=== PATIENT | male | born 1955 | race Caucasian/White ===

== ENCOUNTER 2018-09-23 17:32 | Inpatient (IN) | payer MEDICARE ==
[~2018-09-23] VITALS: Ht 172.7 cm; Wt 130.6 kg
--- OUTSIDE RECORDS SUMMARY | 2018-09-23 17:37 | XMS REPORT ---
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 Allergies, Adverse Reactions, Alerts Allergy Name Allergy Type Status Severity Reaction(s) Onset Date Inactive Date Treating Clinician Comments No Known Allergies DA Active U 2018-06-13 00:00:00 No Known Drug Intolerances DA Active U 2009-02-05 00:00:00 Medications This patient has no known medications. Results Test Description Test Time Test Comments Text Results Atomic Results Result Comments ACUTE HEPATITIS PANEL 2018-09-21 11:08:00 AB HEPATITIS A IGM (test code=HAVMAB) Negative Negative AG HEPAT B SURF (test code=HBSAG) Negative Negative HEPATITIS B CORE ANTIBODY,IGM (test code=HBCMAB) Negative Negative AB HEPATITIS C (test code=HCVAB) >11.0 0.0-0.9 INFCE Result Units: s/co ratio Negative: < 0.8 Indeterminate: 0.8 - 0.9 Positive: > 0.9 The CDC recommends that a positive HCV antibody result be followed up with a HCV Nucleic Acid Amplification test ([id number]).Performed At: [facility] [id number] Kyle L MD Ph:[phone] AB ANTI-GLOMERULAR BASMNT [id number] 11:08:00* Test Item Value Reference Range Comments AB ANTI-GLOMERULAR BASMNT MRBN (test code=GLOMAB) QUANT NOT SUFFICIENT units () Quantity was not sufficient for analysis.Notified: Radha Martinez at account.09/14/2018- Oriana Negative 0 - 20 Weak Positive 21 - 30 Moderate to Strong Positive >30Performed At: [address] [id number] Sanjai MD Ph:[phone] NEUTROPHIL CYTOPLASMIC [id number] 11:08:00* Test Item Value Reference Range Comments AB ANTI-NEUTROPHIL CYTOPLASMIC (test code=NEUTCAB) QUANT NOT SUFFICIENT titer () Quantity was not sufficient for analysis.Notified: Radha Martinez at account.09/14/2018-Oriana AB ANTI-NEUTROPHIL CYTO. P (test code=NEUTCAB-P) TEST NOT PERFORMED () Test not performed ATYPICAL ANCA (test code=ANCACOM) TEST NOT PERFORMED () Test not performed AB DNA DOUBLE [id number] 11:08:00* Test Item Value Reference Range Comments AB DNA DOUBLE STRAND (test code=DNADSAB) 1 IU/mL 0-9 Negative <5 Equivocal 5 - 9 Positive >9Performed At: [facility] [id number] Kyle L MD Ph:[phone] [id number] 12:34:00* Test Item Value Reference Range Comments GLUBED (test code=GLUBED) 100 mg/dL 74-106 Performed by certified staple processing machine operator at [facility] [id number] 07:58:00* Test Item Value Reference Range Comments GLUBED (test code=GLUBED) 107 mg/dL 74-106 Performed by certified staple processing machine operator at [facility] BASIC METABOLIC [id number] 06:59:00* Test Item Value Reference Range Comments SODIUM (test code=NA) 145 mmol/L 136-145 POTASSIUM (test code=K) 3.7 mmol/L 3.5-5.1 CHLORIDE (test code=CL) 116.0 mmol/L 98-107 CARBON DIOXIDE (test code=CO2) 23.0 mmol/L 21-32 ANION GAP (test code=GAP) 9.7 10-20 GLUCOSE (test code=GLU) 100 mg/dL 74-106 BLOOD UREA NITROGEN (test code=BUN) 22 mg/dL 7-18 GLOMERULAR FILTRATION RATE (test code=GFR) 51 mL/min >=60 Estimated GFR by using Modified MDRD formula.Chronic kidney disease is defined as either kidney damageor GFR <60 mL/min/1.73 m2 for >3 months. CREATININE (test code=CREAT) 1.40 mg/dL 0.7-1.3 BUN/CREATININE RATIO (test code=BUN/CREA) 15.7 10-20 CALCIUM (test code=CA) 7.9 mg/dL 8.5-10.1 [id number] 06:59:00* Test Item Value Reference Range Comments MAGNESIUM (test code=MAG) 1.8 mg/dL 1.8-2.4 BASIC METABOLIC [id number] 06:49:00* Test Item Value Reference Range Comments SODIUM (test code=NA) 145 mmol/L 136-145 POTASSIUM (test code=K) 3.7 mmol/L 3.5-5.1 CHLORIDE (test code=CL) 116.0 mmol/L 98-107 CARBON DIOXIDE (test code=CO2) mmol/L 21-32 ANION GAP (test code=GAP) 10-20 GLUCOSE (test code=GLU) mg/dL 74-106 BLOOD UREA NITROGEN (test code=BUN) mg/dL 7-18 GLOMERULAR FILTRATION RATE (test code=GFR) mL/min >=60 CREATININE (test code=CREAT) mg/dL 0.7-1.3 BUN/CREATININE RATIO (test code=BUN/CREA) 10-20 CALCIUM (test code=CA) mg/dL 8.5-10.1 [id number] 06:49:00* Test Item Value Reference Range Comments MAGNESIUM (test code=MAG) mg/dL 1.8-2.4 [id number] 21:11:00* Test Item Value Reference Range Comments GLUBED (test code=GLUBED) 135 mg/dL 74-106 Performed by certified staple processing machine operator at [facility] [id number] 17:50:00* Test Item Value Reference Range Comments GLUBED (test code=GLUBED) 130 mg/dL 74-106 Performed by certified staple processing machine operator at [facility] [id number] 12:35:00* Test Item Value Reference Range Comments GLUBED (test code=GLUBED) 103 mg/dL 74-106 Performed by certified staple processing machine operator at [facility] [id number] 11:24:00* Test Item Value Reference Range Comments GLUBED (test code=GLUBED) 107 mg/dL 74-106 Performed by certified staple processing machine operator at [facility] [id number] 11:24:00* Test Item Value Reference Range Comments GLUBED (test code=GLUBED) 117 mg/dL 74-106 Performed by certified staple processing machine operator at [facility] [id number] 11:23:00* Test Item Value Reference Range Comments GLUBED (test code=GLUBED) 137 mg/dL 74-106 Performed by certified staple processing machine operator at [facility] [id number] 11:23:00* Test Item Value Reference Range Comments GLUBED (test code=GLUBED) 99 mg/dL 74-106 Performed by certified staple processing machine operator at [facility] [id number] 11:22:00* Test Item Value Reference Range Comments GLUBED (test code=GLUBED) 97 mg/dL 74-106 [facility] certified staple processing machine operator [facility] [id number] 11:22:00* Test Item Value Reference Range Comments GLUBED (test code=GLUBED) 86 mg/dL 74-106 Per[facility] by certified staple processing machine [facility] AB ANTI-GLOMERULAR BASMNT [id number] 10:12:00* Test Item Value Reference Range Comments AB ANTI-GLOMERULAR BASMNT MRBN (test code=GLOMAB) 6 units 0-20 Negative 0 - 20 Weak Positive 21 - 30 Moderate to Strong Positive >30Performed At: [facility] [id number] Sanjai MD Ph:[phone] performed at: [facility] [address] [place] [address] NEUTROPHIL CYTOPLASMIC [id number] 10:12:00* Test Item Value Reference Range Comments AB ANTI-NEUTROPHIL CYTOPLASMIC (test code=NEUTCAB) <1:20 titer Neg:<1:20 AB ANTI-NEUTROPHIL CYTO. P (test code=NEUTCAB-P) <1:20 titer Neg:<1:20 The presence of positive fluorescence exhibiting P-ANCA orC-ANCA patterns alone is not specific for the diagnosis ofWegener's Granulomatosis (WG) or microscopic polyangiitis.Decisions about treatment should not be based solely onANCA IFA results. The International ANCA Group Consensusrecommends follow up testing of positive sera with both NH-3 and MPO-ANCA enzyme immunoassays. As many as 5% serumsamples are positive only by EIA. Ref. AM J Clin [id number];111:507-513. ATYPICAL ANCA (test code=ANCACOM) <1:20 titer Neg:<1:20 The atypical pANCA pattern has been observed in asignificant percentage of patients with ulcerative colitis,primary sclerosing cholangitis and autoimmune hepatitis.Performed At: [facility] [id number] Sanjai MD Ph:[phone] BASIC METABOLIC [id number] 07:36:00* Test Item Value Reference Range Comments SODIUM (test code=NA) 147 mmol/L 136-145 POTASSIUM (test code=K) 3.5 mmol/L 3.5-5.1 CHLORIDE (test code=CL) 117.0 mmol/L 98-107 CARBON DIOXIDE (test code=CO2) 24.0 mmol/L 21-32 ANION GAP (test code=GAP) 9.5 10-20 GLUCOSE (test code=GLU) 107 mg/dL 74-106 BLOOD UREA NITROGEN (test code=BUN) 24 mg/dL 7-18 GLOMERULAR FILTRATION RATE (test code=GFR) 47 mL/min >=60 Estimated GFR by using Modified MDRD formula.Chronic kidney disease is defined as either kidney damageor GFR <60 mL/min/1.73 m2 for >3 months. CREATININE (test code=CREAT) 1.50 mg/dL 0.7-1.3 BUN/CREATININE RATIO (test code=BUN/CREA) 16.0 10-20 CALCIUM (test code=CA) 7.7 mg/dL 8.5-10.1 [id number] 07:36:00* Test Item Value Reference Range Comments PHOSPHORUS (test code=PHOS) 3.1 mg/dL 2.5-4.9 [id number] 07:36:00* Test Item Value Reference Range Comments MAGNESIUM (test code=MAG) 1.7 mg/dL 1.8-2.4 [id number] 22:23:00* Test Item Value Reference Range Comments GLUBED (test code=GLUBED) 113 mg/dL 74-106 Performed by certified staple processing machine operator at [facility] BASIC METABOLIC [id number] 07:12:00* Test Item Value Reference Range Comments SODIUM (test code=NA) 150 mmol/L 136-145 POTASSIUM (test code=K) 3.6 mmol/L 3.5-5.1 CHLORIDE (test code=CL) 118.0 mmol/L 98-107 CARBON DIOXIDE (test code=CO2) 24.0 mmol/L 21-32 ANION GAP (test code=GAP) 11.6 10-20 GLUCOSE (test code=GLU) 101 mg/dL 74-106 BLOOD UREA NITROGEN (test code=BUN) 27 mg/dL 7-18 GLOMERULAR FILTRATION RATE (test code=GFR) 41 mL/min >=60 Estimated GFR by using Modified MDRD formula.Chronic kidney disease is defined as either kidney damageor GFR <60 mL/min/1.73 m2 for >3 months. CREATININE (test code=CREAT) 1.70 mg/dL 0.7-1.3 BUN/CREATININE RATIO (test code=BUN/CREA) 15.9 10-20 CALCIUM (test code=CA) 7.9 mg/dL 8.5-10.1 BASIC METABOLIC [id number] 07:07:00* Test Item Value Reference Range Comments SODIUM (test code=NA) 150 mmol/L 136-145 POTASSIUM (test code=K) 3.6 mmol/L 3.5-5.1 CHLORIDE (test code=CL) 118.0 mmol/L 98-107 CARBON DIOXIDE (test code=CO2) mmol/L 21-32 ANION GAP (test code=GAP) 10-20 GLUCOSE (test code=GLU) mg/dL 74-106 BLOOD UREA NITROGEN (test code=BUN) mg/dL 7-18 GLOMERULAR FILTRATION RATE (test code=GFR) mL/min >=60 CREATININE (test code=CREAT) mg/dL 0.7-1.3 BUN/CREATININE RATIO (test code=BUN/CREA) 10-20 CALCIUM (test code=CA) mg/dL 8.5-10.1 [id number] 20:50:00* Test Item Value Reference Range Comments GLUBED (test code=GLUBED) 123 mg/dL 74-106 Performed by certified staple processing machine operator at [facility] [id number] 17:02:00* Test Item Value Reference Range Comments GLUBED (test code=GLUBED) 119 mg/dL 74-106 Performed by certified staple processing machine operator at [facility] [id number] 15:55:00* Test Item Value Reference Range Comments GLUBED (test code=GLUBED) 96 mg/dL 74-106 Performed by certified staple processing machine operator at [facility] [id number] 08:48:00* Test Item Value Reference Range Comments GLUBED (test code=GLUBED) 91 mg/dL 74-106 Performed by certified staple processing machine operator at [facility] BASIC METABOLIC [id number] 06:48:00* Test Item Value Reference Range Comments SODIUM (test code=NA) 151 mmol/L 136-145 POTASSIUM (test code=K) 4.0 mmol/L 3.5-5.1 CHLORIDE (test code=CL) 121.0 mmol/L 98-107 CARBON DIOXIDE (test code=CO2) 24.0 mmol/L 21-32 ANION GAP (test code=GAP) 10.0 10-20 GLUCOSE (test code=GLU) 84 mg/dL 74-106 BLOOD UREA NITROGEN (test code=BUN) 28 mg/dL 7-18 GLOMERULAR FILTRATION RATE (test code=GFR) 38 mL/min >=60 Estimated GFR by using Modified MDRD formula.Chronic kidney disease is defined as either kidney damageor GFR <60 mL/min/1.73 m2 for >3 months. CREATININE (test code=CREAT) 1.80 mg/dL 0.7-1.3 BUN/CREATININE RATIO (test code=BUN/CREA) 15.6 10-20 CALCIUM (test code=CA) 7.9 mg/dL 8.5-10.1 [id number] 06:48:00* Test Item Value Reference Range Comments MAGNESIUM (test code=MAG) 1.8 mg/dL 1.8-2.4 [id number] 21:19:00* Test Item Value Reference Range Comments GLUBED (test code=GLUBED) 98 mg/dL 74-106 Performed by certified staple processing machine operator at [facility] [id number] 17:29:00* Test Item Value Reference Range Comments GLUBED (test code=GLUBED) 106 mg/dL 74-106 Performed by certified staple processing machine operator at [facility] AB ANTI-GLOMERULAR BASMNT [id number] 16:09:00* Test Item Value Reference Range Comments AB ANTI-GLOMERULAR BASMNT MRBN (test code=GLOMAB) Units/mL NEUTROPHIL CYTOPLASMIC [id number] 16:09:00* Test Item Value Reference Range Comments AB ANTI-NEUTROPHIL CYTOPLASMIC (test code=NEUTCAB) <1:20 titer Neg:<1:20 AB ANTI-NEUTROPHIL CYTO. P (test code=NEUTCAB-P) <1:20 titer Neg:<1:20 The presence of positive fluorescence exhibiting P-ANCA orC-ANCA patterns alone is not specific for the diagnosis ofWegener's Granulomatosis (WG) or microscopic polyangiitis.Decisions about treatment should not be based solely onANCA IFA results. The International ANCA Group Consensusrecommends follow up testing of positive sera with both NH-3 and MPO-ANCA enzyme immunoassays. As many as 5% serumsamples are positive only by EIA. Ref. AM J Clin [id number];111:507-513. ATYPICAL ANCA (test code=ANCACOM) <1:20 titer Neg:<1:20 The atypical pANCA pattern has been observed in asignificant percentage of patients with ulcerative colitis,primary sclerosing cholangitis and autoimmune hepatitis.Performed At: [facility] [id number] Sanjai MD Ph:[phone] CBC W/MANUAL [id number] 14:26:00* Test Item Value Reference Range Comments WHITE BLOOD CELL (test code=WBC) 7.1 K/mm3 4.5-12.5 RED BLOOD CELL (test code=RBC) 2.60 mill/mm3 4.0-5.8 HEMOGLOBIN (test code=HGB) 7.7 gram/dL 13.0-17.5 HEMATOCRIT (test code=HCT) 25.3 % 42.0-52.0 MEAN CELL VOLUME (test code=MCV) 97.3 fL 80-98 MEAN CELL HGB (test code=MCH) 29.6 picogram 27.0-33.0 MEAN CELL HGB CONCETRATION (test code=MCHC) 30.4 gram/dL 33.0-36.0 RED CELL DISTRIBUTION WIDTH (test code=RDW) 17.5 % 11.6-16.2 RED CELL DISTRIBUTION WIDTH SD (test code=RDW-SD) 61.1 fL 37.0-51.0 PLATELET COUNT (test code=PLT) 88 K/mm3 150-450 MEAN PLATELET VOLUME (test code=MPV) 10.8 fL 6.7-11.0 IMMATURE GRANULOCYTE % (test code=IG%) 0.3 % 0.0-5.0 NUCLEATED RBC % (test code=NRBC%) 0.0 % 0-0 NEUTROPHIL # (test code=NT#) 2.57 K/mm3 1.8-7.7 IMMATURE GRANULOCYTE # (test code=IG#) 0.02 x10 3/uL 0-0.03 LYMPHOCYTE # (test code=LY#) 3.19 K/mm3 1.0-5.0 MONOCYTE # (test code=MO#) 0.70 K/mm3 0-0.8 EOSINOPHIL # (test code=EO#) 0.53 K/mm3 0.0-0.5 BASOPHIL # (test code=BA#) 0.05 K/mm3 0.0-0.2 NUCLEATED RBC # (test code=NRBC#) 0.00 K/mm3 0.0-0.1 MANUAL DIFF REQUIRED (test code=MDIFF) YES STAIN ACCEPTABILITY (test code=STN ACCEPTABLE) STAIN ACCEPTABLE TOTAL CELLS COUNTED (test code=TCC) 100 #CELLS SEGMENTED NEUTROPHILS (test code=SEG) 39 % 39-69 LYMPHOCYTE (test code=LYMPH) 41 % 25-55 MONOCYTE (test code=MON) 14 % 0-10 EOSINOPHIL (test code=EOS) 6 % 0.0-5.0 POIKILOCYTOSIS (test code=POIK) 1+ ELLIPTOCYTES (test code=ELL) 1+ PLATELET ESTIMATE (test code=PLTEST) DECREASED PLATELET MORPHOLOGY (test code=PLTMORPH) NORMAL CBC W/MANUAL [id number] 13:51:00* Test Item Value Reference Range Comments WHITE BLOOD CELL (test code=WBC) 7.1 K/mm3 4.5-12.5 RED BLOOD CELL (test code=RBC) 2.60 mill/mm3 4.0-5.8 HEMOGLOBIN (test code=HGB) 7.7 gram/dL 13.0-17.5 HEMATOCRIT (test code=HCT) 25.3 % 42.0-52.0 MEAN CELL VOLUME (test code=MCV) 97.3 fL 80-98 MEAN CELL HGB (test code=MCH) 29.6 picogram 27.0-33.0 MEAN CELL HGB CONCETRATION (test code=MCHC) 30.4 gram/dL 33.0-36.0 RED CELL DISTRIBUTION WIDTH (test code=RDW) 17.5 % 11.6-16.2 RED CELL DISTRIBUTION WIDTH SD (test code=RDW-SD) 61.1 fL 37.0-51.0 PLATELET COUNT (test code=PLT) 88 K/mm3 150-450 MEAN PLATELET VOLUME (test code=MPV) 10.8 fL 6.7-11.0 IMMATURE GRANULOCYTE % (test code=IG%) 0.3 % 0.0-5.0 NUCLEATED RBC % (test code=NRBC%) 0.0 % 0-0 NEUTROPHIL # (test code=NT#) 2.57 K/mm3 1.8-7.7 IMMATURE GRANULOCYTE # (test code=IG#) 0.02 x10 3/uL 0-0.03 LYMPHOCYTE # (test code=LY#) 3.19 K/mm3 1.0-5.0 MONOCYTE # (test code=MO#) 0.70 K/mm3 0-0.8 EOSINOPHIL # (test code=EO#) 0.53 K/mm3 0.0-0.5 BASOPHIL # (test code=BA#) 0.05 K/mm3 0.0-0.2 NUCLEATED RBC # (test code=NRBC#) 0.00 K/mm3 0.0-0.1 MANUAL DIFF REQUIRED (test code=MDIFF) YES STAIN ACCEPTABILITY (test code=STN ACCEPTABLE) TOTAL CELLS COUNTED (test code=TCC) #CELLS SEGMENTED NEUTROPHILS (test code=SEG) % 39-69 LYMPHOCYTE (test code=LYMPH) % 25-55 MONOCYTE (test code=MON) % 0-10 EOSINOPHIL (test code=EOS) % 0.0-5.0 CABOT RINGS (test code=CAB) MORPHOLOGY COMMENT (test code=MOC) PLATELET ESTIMATE (test code=PLTEST) PLATELET MORPHOLOGY (test code=PLTMORPH) CBC W/MANUAL [id number] 13:51:00* Test Item Value Reference Range Comments WHITE BLOOD CELL (test code=WBC) 7.1 K/mm3 4.5-12.5 RED BLOOD CELL (test code=RBC) 2.60 mill/mm3 4.0-5.8 HEMOGLOBIN (test code=HGB) 7.7 gram/dL 13.0-17.5 HEMATOCRIT (test code=HCT) 25.3 % 42.0-52.0 MEAN CELL VOLUME (test code=MCV) 97.3 fL 80-98 MEAN CELL HGB (test code=MCH) 29.6 picogram 27.0-33.0 MEAN CELL HGB CONCETRATION (test code=MCHC) 30.4 gram/dL 33.0-36.0 RED CELL DISTRIBUTION WIDTH (test code=RDW) 17.5 % 11.6-16.2 RED CELL DISTRIBUTION WIDTH SD (test code=RDW-SD) 61.1 fL 37.0-51.0 PLATELET COUNT (test code=PLT) 88 K/mm3 150-450 MEAN PLATELET VOLUME (test code=MPV) 10.8 fL 6.7-11.0 IMMATURE GRANULOCYTE % (test code=IG%) 0.3 % 0.0-5.0 NUCLEATED RBC % (test code=NRBC%) 0.0 % 0-0 NEUTROPHIL # (test code=NT#) 2.57 K/mm3 1.8-7.7 IMMATURE GRANULOCYTE # (test code=IG#) 0.02 x10 3/uL 0-0.03 LYMPHOCYTE # (test code=LY#) 3.19 K/mm3 1.0-5.0 MONOCYTE # (test code=MO#) 0.70 K/mm3 0-0.8 EOSINOPHIL # (test code=EO#) 0.53 K/mm3 0.0-0.5 BASOPHIL # (test code=BA#) 0.05 K/mm3 0.0-0.2 NUCLEATED RBC # (test code=NRBC#) 0.00 K/mm3 0.0-0.1 MANUAL DIFF REQUIRED (test code=MDIFF) YES STAIN ACCEPTABILITY (test code=STN ACCEPTABLE) TOTAL CELLS COUNTED (test code=TCC) #CELLS SEGMENTED NEUTROPHILS (test code=SEG) % 39-69 LYMPHOCYTE (test code=LYMPH) % 25-55 MONOCYTE (test code=MON) % 0-10 EOSINOPHIL (test code=EOS) % 0.0-5.0 CABOT RINGS (test code=CAB) MORPHOLOGY COMMENT (test code=MOC) PLATELET ESTIMATE (test code=PLTEST) PLATELET MORPHOLOGY (test code=PLTMORPH) CBC W/MANUAL [id number] 13:51:00* Test Item Value Reference Range Comments WHITE BLOOD CELL (test code=WBC) 7.1 K/mm3 4.5-12.5 RED BLOOD CELL (test code=RBC) 2.60 mill/mm3 4.0-5.8 HEMOGLOBIN (test code=HGB) 7.7 gram/dL 13.0-17.5 HEMATOCRIT (test code=HCT) 25.3 % 42.0-52.0 MEAN CELL VOLUME (test code=MCV) 97.3 fL 80-98 MEAN CELL HGB (test code=MCH) 29.6 picogram 27.0-33.0 MEAN CELL HGB CONCETRATION (test code=MCHC) 30.4 gram/dL 33.0-36.0 RED CELL DISTRIBUTION WIDTH (test code=RDW) 17.5 % 11.6-16.2 RED CELL DISTRIBUTION WIDTH SD (test code=RDW-SD) 61.1 fL 37.0-51.0 PLATELET COUNT (test code=PLT) 88 K/mm3 150-450 MEAN PLATELET VOLUME (test code=MPV) 10.8 fL 6.7-11.0 IMMATURE GRANULOCYTE % (test code=IG%) 0.3 % 0.0-5.0 NUCLEATED RBC % (test code=NRBC%) 0.0 % 0-0 NEUTROPHIL # (test code=NT#) 2.57 K/mm3 1.8-7.7 IMMATURE GRANULOCYTE # (test code=IG#) 0.02 x10 3/uL 0-0.03 LYMPHOCYTE # (test code=LY#) 3.19 K/mm3 1.0-5.0 MONOCYTE # (test code=MO#) 0.70 K/mm3 0-0.8 EOSINOPHIL # (test code=EO#) 0.53 K/mm3 0.0-0.5 BASOPHIL # (test code=BA#) 0.05 K/mm3 0.0-0.2 NUCLEATED RBC # (test code=NRBC#) 0.00 K/mm3 0.0-0.1 MANUAL DIFF REQUIRED (test code=MDIFF) YES STAIN ACCEPTABILITY (test code=STN ACCEPTABLE) TOTAL CELLS COUNTED (test code=TCC) #CELLS SEGMENTED NEUTROPHILS (test code=SEG) % 39-69 LYMPHOCYTE (test code=LYMPH) % 25-55 MONOCYTE (test code=MON) % 0-10 EOSINOPHIL (test code=EOS) % 0.0-5.0 MORPHOLOGY COMMENT (test code=MOC) PLATELET ESTIMATE (test code=PLTEST) PLATELET MORPHOLOGY (test code=PLTMORPH) CBC W/MANUAL [id number] 13:51:00* Test Item Value Reference Range Comments WHITE BLOOD CELL (test code=WBC) 7.1 K/mm3 4.5-12.5 RED BLOOD CELL (test code=RBC) 2.60 mill/mm3 4.0-5.8 HEMOGLOBIN (test code=HGB) 7.7 gram/dL 13.0-17.5 HEMATOCRIT (test code=HCT) 25.3 % 42.0-52.0 MEAN CELL VOLUME (test code=MCV) 97.3 fL 80-98 MEAN CELL HGB (test code=MCH) 29.6 picogram 27.0-33.0 MEAN CELL HGB CONCETRATION (test code=MCHC) 30.4 gram/dL 33.0-36.0 RED CELL DISTRIBUTION WIDTH (test code=RDW) 17.5 % 11.6-16.2 RED CELL DISTRIBUTION WIDTH SD (test code=RDW-SD) 61.1 fL 37.0-51.0 PLATELET COUNT (test code=PLT) 88 K/mm3 150-450 MEAN PLATELET VOLUME (test code=MPV) 10.8 fL 6.7-11.0 IMMATURE GRANULOCYTE % (test code=IG%) 0.3 % 0.0-5.0 NUCLEATED RBC % (test code=NRBC%) 0.0 % 0-0 NEUTROPHIL # (test code=NT#) 2.57 K/mm3 1.8-7.7 IMMATURE GRANULOCYTE # (test code=IG#) 0.02 x10 3/uL 0-0.03 LYMPHOCYTE # (test code=LY#) 3.19 K/mm3 1.0-5.0 MONOCYTE # (test code=MO#) 0.70 K/mm3 0-0.8 EOSINOPHIL # (test code=EO#) 0.53 K/mm3 0.0-0.5 BASOPHIL # (test code=BA#) 0.05 K/mm3 0.0-0.2 NUCLEATED RBC # (test code=NRBC#) 0.00 K/mm3 0.0-0.1 MANUAL DIFF REQUIRED (test code=MDIFF) YES STAIN ACCEPTABILITY (test code=STN ACCEPTABLE) TOTAL CELLS COUNTED (test code=TCC) #CELLS SEGMENTED NEUTROPHILS (test code=SEG) % 39-69 LYMPHOCYTE (test code=LYMPH) % 25-55 MONOCYTE (test code=MON) % 0-10 MORPHOLOGY COMMENT (test code=MOC) PLATELET ESTIMATE (test code=PLTEST) PLATELET MORPHOLOGY (test code=PLTMORPH) CBC W/MANUAL [id number] 13:51:00* Test Item Value Reference Range Comments WHITE BLOOD CELL (test code=WBC) 7.1 K/mm3 4.5-12.5 RED BLOOD CELL (test code=RBC) 2.60 mill/mm3 4.0-5.8 HEMOGLOBIN (test code=HGB) 7.7 gram/dL 13.0-17.5 HEMATOCRIT (test code=HCT) 25.3 % 42.0-52.0 MEAN CELL VOLUME (test code=MCV) 97.3 fL 80-98 MEAN CELL HGB (test code=MCH) 29.6 picogram 27.0-33.0 MEAN CELL HGB CONCETRATION (test code=MCHC) 30.4 gram/dL 33.0-36.0 RED CELL DISTRIBUTION WIDTH (test code=RDW) 17.5 % 11.6-16.2 RED CELL DISTRIBUTION WIDTH SD (test code=RDW-SD) 61.1 fL 37.0-51.0 PLATELET COUNT (test code=PLT) 88 K/mm3 150-450 MEAN PLATELET VOLUME (test code=MPV) 10.8 fL 6.7-11.0 IMMATURE GRANULOCYTE % (test code=IG%) 0.3 % 0.0-5.0 NUCLEATED RBC % (test code=NRBC%) 0.0 % 0-0 NEUTROPHIL # (test code=NT#) 2.57 K/mm3 1.8-7.7 IMMATURE GRANULOCYTE # (test code=IG#) 0.02 x10 3/uL 0-0.03 LYMPHOCYTE # (test code=LY#) 3.19 K/mm3 1.0-5.0 MONOCYTE # (test code=MO#) 0.70 K/mm3 0-0.8 EOSINOPHIL # (test code=EO#) 0.53 K/mm3 0.0-0.5 BASOPHIL # (test code=BA#) 0.05 K/mm3 0.0-0.2 NUCLEATED RBC # (test code=NRBC#) 0.00 K/mm3 0.0-0.1 MANUAL DIFF REQUIRED (test code=MDIFF) YES STAIN ACCEPTABILITY (test code=STN ACCEPTABLE) TOTAL CELLS COUNTED (test code=TCC) #CELLS SEGMENTED NEUTROPHILS (test code=SEG) % 39-69 LYMPHOCYTE (test code=LYMPH) % 25-55 MONOCYTE (test code=MON) % 0-10 EOSINOPHIL (test code=EOS) % 0.0-5.0 CABOT RINGS (test code=CAB) MORPHOLOGY COMMENT (test code=MOC) PLATELET ESTIMATE (test code=PLTEST) PLATELET MORPHOLOGY (test code=PLTMORPH) [id number] 12:37:00* Test Item Value Reference Range Comments GLUBED (test code=GLUBED) 100 mg/dL 74-106 Performed by certified staple processing machine operator at [facility] [id number] 08:36:00* Test Item Value Reference Range Comments GLUBED (test code=GLUBED) 94 mg/dL 74-106 Performed by certified staple processing machine operator at [facility] [id number] 07:33:00* Test Item Value Reference Range Comments AMMONIA (test code=AMM) 63 umol/L 11-32 BASIC METABOLIC [id number] 07:29:00* Test Item Value Reference Range Comments SODIUM (test code=NA) 152 mmol/L 136-145 POTASSIUM (test code=K) 3.5 mmol/L 3.5-5.1 CHLORIDE (test code=CL) 121.0 mmol/L 98-107 CARBON DIOXIDE (test code=CO2) 27.0 mmol/L 21-32 ANION GAP (test code=GAP) 7.5 10-20 GLUCOSE (test code=GLU) 103 mg/dL 74-106 BLOOD UREA NITROGEN (test code=BUN) 30 mg/dL 7-18 GLOMERULAR FILTRATION RATE (test code=GFR) 34 mL/min >=60 Estimated GFR by using Modified MDRD formula.Chronic kidney disease is defined as either kidney damageor GFR <60 mL/min/1.73 m2 for >3 months. CREATININE (test code=CREAT) 2.00 mg/dL 0.7-1.3 BUN/CREATININE RATIO (test code=BUN/CREA) 15.0 10-20 CALCIUM (test code=CA) 8.2 mg/dL 8.5-10.1 [id number] 16:41:00* Test Item Value Reference Range Comments GLUBED (test code=GLUBED) 129 mg/dL 74-106 Performed by certified staple processing machine operator at [facility] [id number] 12:23:00* Test Item Value Reference Range Comments GLUBED (test code=GLUBED) 106 mg/dL 74-106 Performed by certified staple processing machine operator at [facility] [id number] 08:39:00* Test Item Value Reference Range Comments GLUBED (test code=GLUBED) 88 mg/dL 74-106 Performed by certified staple processing machine operator at [facility] [id number] 06:16:00* Test Item Value Reference Range Comments AMMONIA (test code=AMM) 83 umol/L 11-32 BASIC METABOLIC [id number] 06:15:00* Test Item Value Reference Range Comments SODIUM (test code=NA) 153 mmol/L 136-145 POTASSIUM (test code=K) 3.6 mmol/L 3.5-5.1 CHLORIDE (test code=CL) 121.0 mmol/L 98-107 CARBON DIOXIDE (test code=CO2) 25.0 mmol/L 21-32 ANION GAP (test code=GAP) 10.6 10-20 GLUCOSE (test code=GLU) 88 mg/dL 74-106 BLOOD UREA NITROGEN (test code=BUN) 35 mg/dL 7-18 GLOMERULAR FILTRATION RATE (test code=GFR) 32 mL/min >=60 Estimated GFR by using Modified MDRD formula.Chronic kidney disease is defined as either kidney damageor GFR <60 mL/min/1.73 m2 for >3 months. CREATININE (test code=CREAT) 2.10 mg/dL 0.7-1.3 BUN/CREATININE RATIO (test code=BUN/CREA) 17.0 10-20 CALCIUM (test code=CA) 8.1 mg/dL 8.5-10.1 [id number] 06:15:00* Test Item Value Reference Range Comments PHOSPHORUS (test code=PHOS) 4.1 mg/dL 2.5-4.9 [id number] 06:15:00* Test Item Value Reference Range Comments MAGNESIUM (test code=MAG) 1.9 mg/dL 1.8-2.4 - XR CHEST 1 [id number] 16:30:00 FAX: Ryan Charles MD [place]: B St: ADM FAX: Dorian Wadsworth [phone] Name: CHEYENNE MISHRA [facility] : 1955 Age/S: 62/M [address] [facility] Unit #: [id number] Loc: V.[address] [place] [address] Phys: Dorian Montague PROGRAM DIRECTOR SUBSTANCE ABUSE Acct: [id number] Dis Date: Status: ADM IN PHONE #: [phone] Exam Date: 09/14/2018 5081 FAX #: [phone] Reason: f/u on CHF noted on 09/07 CXR EXAMS: CPT CODE: [id number] XR CHEST 1 V 60789 EXAM: Chest x-ray, one view; INFORMATION: CHF follow up; IMPRESSION: Lungs are slightly better aerated compared with the recent study from September 10, 2018: Persistent moderate cardiomegaly and interstitial edema but partial resolution of alveolar edema. Aortic calcifications. at 1630 Reported and signed by: Mart Estevez M.D. CC: Ryan Posey; Dorian Montague NP Technologist: Juana Adams RT(R) Trnscrd Da te/Time/By: 09/14/2018 (9085) : By: RoyaGRW Orig Print D/T: S: 09/14 (9226) PAGE 1 Signed Report [id number] 16:22:00* Test Item Value Reference Range Comments GLUBED (test code=GLUBED) 150 mg/dL 74-106 Performed by certified staple processing machine [facility] [id number] 15:18:00* Test Item Value Reference Range Comments AMMONIA (test code=AMM) 73 umol/L 11-32 HGB [id number] 12:18:00* Test Item Value Reference Range Comments HEMOGLOBIN (test code=HGB) 7.2 gram/dL 13.0-17.5 HEMATOCRIT (test code=HCT) 24.3 % 42.0-52.0 BASIC METABOLIC [id number] 09:04:00* Test Item Value Reference Range Comments SODIUM (test code=NA) 150 mmol/L 136-145 POTASSIUM (test code=K) 3.6 mmol/L 3.5-5.1 CHLORIDE (test code=CL) 120.0 mmol/L 98-107 CARBON DIOXIDE (test code=CO2) 23.0 mmol/L 21-32 ANION GAP (test code=GAP) 10.6 10-20 GLUCOSE (test code=GLU) 90 mg/dL 74-106 BLOOD UREA NITROGEN (test code=BUN) 34 mg/dL 7-18 GLOMERULAR FILTRATION RATE (test code=GFR) 34 mL/min >=60 Estimated GFR by using Modified MDRD formula.Chronic kidney disease is defined as either kidney damageor GFR <60 mL/min/1.73 m2 for >3 months. CREATININE (test code=CREAT) 2.00 mg/dL 0.7-1.3 BUN/CREATININE RATIO (test code=BUN/CREA) 17.3 10-20 CALCIUM (test code=CA) 7.8 mg/dL 8.5-10.1 [id number] 09:04:00* Test Item Value Reference Range Comments PHOSPHORUS (test code=PHOS) 3.7 mg/dL 2.5-4.9 [id number] 09:04:00* Test Item Value Reference Range Comments MAGNESIUM (test code=MAG) 2.2 mg/dL 1.8-2.4 CALCIUM [id number] 09:04:00* Test Item Value Reference Range Comments CALCIUM IONIZED (test code=MARISSA) 1.18 mmol/L 1.12-1.32 BASIC METABOLIC [id number] 08:57:00* Test Item Value Reference Range Comments SODIUM (test code=NA) 150 mmol/L 136-145 POTASSIUM (test code=K) 3.6 mmol/L 3.5-5.1 CHLORIDE (test code=CL) 120.0 mmol/L 98-107 CARBON DIOXIDE (test code=CO2) mmol/L 21-32 ANION GAP (test code=GAP) 10-20 GLUCOSE (test code=GLU) mg/dL 74-106 BLOOD UREA NITROGEN (test code=BUN) mg/dL 7-18 GLOMERULAR FILTRATION RATE (test code=GFR) mL/min >=60 CREATININE (test code=CREAT) mg/dL 0.7-1.3 BUN/CREATININE RATIO (test code=BUN/CREA) 10-20 CALCIUM (test code=CA) mg/dL 8.5-10.1 [id number] 08:57:00* Test Item Value Reference Range Comments PHOSPHORUS (test code=PHOS) mg/dL 2.5-4.9 [id number] 08:57:00* Test Item Value Reference Range Comments MAGNESIUM (test code=MAG) mg/dL 1.8-2.4 CALCIUM [id number] 08:57:00* Test Item Value Reference Range Comments CALCIUM IONIZED (test code=MARISSA) 1.18 mmol/L 1.12-1.32 BASIC METABOLIC [id number] 08:51:00* Test Item Value Reference Range Comments SODIUM (test code=NA) mmol/L 136-145 POTASSIUM (test code=K) mmol/L 3.5-5.1 CHLORIDE (test code=CL) mmol/L 98-107 CARBON DIOXIDE (test code=CO2) mmol/L 21-32 ANION GAP (test code=GAP) 10-20 GLUCOSE (test code=GLU) mg/dL 74-106 BLOOD UREA NITROGEN (test code=BUN) mg/dL 7-18 GLOMERULAR FILTRATION RATE (test code=GFR) mL/min >=60 CREATININE (test code=CREAT) mg/dL 0.7-1.3 BUN/CREATININE RATIO (test code=BUN/CREA) 10-20 CALCIUM (test code=CA) mg/dL 8.5-10.1 [id number] 08:51:00* Test Item Value Reference Range Comments PHOSPHORUS (test code=PHOS) mg/dL 2.5-4.9 [id number] 08:51:00* Test Item Value Reference Range Comments MAGNESIUM (test code=MAG) mg/dL 1.8-2.4 CALCIUM [id number] 08:51:00* Test Item Value Reference Range Comments CALCIUM IONIZED (test code=MARISSA) 1.18 mmol/L 1.12-1.32 [id number] 08:27:00* Test Item Value Reference Range Comments GLUBED (test code=GLUBED) 91 mg/dL 74-106 Performed by certified staple processing machine operator at [facility] [id number] 21:03:00* Test Item Value Reference Range Comments GLUBED (test code=GLUBED) 122 mg/dL 74-106 Performed by certified staple processing machine operator at [facility] [id number] 20:34:00* Test Item Value Reference Range Comments GLUBED (test code=GLUBED) 124 mg/dL 74-106 Performed by certified staple processing machine operator [facility] [id number] 11:59:00* Test Item Value Reference Range Comments GLUBED (test code=GLUBED) 104 mg/dL 74-106 Performed by certified staple processing machine operator [facility] [id number] 11:26:00* Test Item Value Reference Range Comments GLUBED (test code=GLUBED) 87 mg/dL 74-106 Performed by certified staple processing machine operator [facility] [id number] 08:22:00* Test Item Value Reference Range Comments GLUBED (test code=GLUBED) 63 mg/dL 74-106 Performed by certified staple processing machine operator at [facility] UR PROTEIN [id number] 07:53:00* Test Item Value Reference Range Comments UR TOTAL PROTEIN (test code=PROTEU) 128.3 mg/dL Not Estab. UR ALBUMIN (test code=ALBEU) 38.5 % NOT ESTAB. UR [id number]-8-[id number] (test code=A1GU) 1.1 % NOT ESTAB. UR [id number]-6-[id number] (test code=A2GU) 4.8 % NOT ESTAB. UR BETA GLOBULIN (test code=BGU) 26.6 % NOT ESTAB. UR GAMMA GLOBULIN (test code=GGU) 29.0 % NOT ESTAB. UR PROT ELECTROPHORESIS INTERP (test code=ELEUINT) () Protein electrophoresis scan will follow via computer,mail, or tele rn delivery.Performed At: [facility] [address] [id number] Ang Gloria MD Ph:[phone] At: DA [facility] [address] [place], [place] [id number] CN MD Ph:[phone] MONOCLONAL SPIKE (test code=MONOSPIKE) Not Observed % Not Observed UR PROTEIN 24HR (test code=CKVS55M) 1475.00 mg/24 hr 30-150 UR VOLUME 24 HOUR (test code=VOL24) 1150 mL/24hrs 8541-3203 VOLUME 1150 MLCBC W/AUTO [id number] 05:30:00* Test Item Value Reference Range Comments WHITE BLOOD CELL (test code=WBC) 6.8 K/mm3 4.5-12.5 RED BLOOD CELL (test code=RBC) 2.44 mill/mm3 4.0-5.8 HEMOGLOBIN (test code=HGB) 7.3 gram/dL 13.0-17.5 HEMATOCRIT (test code=HCT) 23.7 % 42.0-52.0 MEAN CELL VOLUME (test code=MCV) 97.1 fL 80-98 MEAN CELL HGB (test code=MCH) 29.9 picogram 27.0-33.0 MEAN CELL HGB CONCETRATION (test code=MCHC) 30.8 gram/dL 33.0-36.0 RED CELL DISTRIBUTION WIDTH (test code=RDW) 15.9 % 11.6-16.2 RED CELL DISTRIBUTION WIDTH SD (test code=RDW-SD) 54.4 fL 37.0-51.0 PLATELET COUNT (test code=PLT) 77 K/mm3 150-450 MEAN PLATELET VOLUME (test code=MPV) 10.9 fL 6.7-11.0 NEUTROPHIL % (test code=NT%) 41.2 % 39.0-69.0 IMMATURE GRANULOCYTE % (test code=IG%) 0.4 % 0.0-5.0 LYMPHOCYTE % (test code=LY%) 43.8 % 25.0-55.0 MONOCYTE % (test code=MO%) 8.5 % 0.0-10.0 EOSINOPHIL % (test code=EO%) 5.7 % 0.0-5.0 BASOPHIL % (test code=BA%) 0.4 % 0.0-1.0 NUCLEATED RBC % (test code=NRBC%) 0.0 % 0-0 NEUTROPHIL # (test code=NT#) 2.81 K/mm3 1.8-7.7 IMMATURE GRANULOCYTE # (test code=IG#) 0.03 x10 3/uL 0-0.03 LYMPHOCYTE # (test code=LY#) 2.99 K/mm3 1.0-5.0 MONOCYTE # (test code=MO#) 0.58 K/mm3 0-0.8 EOSINOPHIL # (test code=EO#) 0.39 K/mm3 0.0-0.5 BASOPHIL # (test code=BA#) 0.03 K/mm3 0.0-0.2 NUCLEATED RBC # (test code=NRBC#) 0.00 K/mm3 0.0-0.1 BASIC METABOLIC [id number] 05:00:00* Test Item Value Reference Range Comments SODIUM (test code=NA) 148 mmol/L 136-145 POTASSIUM (test code=K) 3.9 mmol/L 3.5-5.1 CHLORIDE (test code=CL) 120.0 mmol/L 98-107 CARBON DIOXIDE (test code=CO2) 24.0 mmol/L 21-32 ANION GAP (test code=GAP) 7.9 10-20 GLUCOSE (test code=GLU) 73 mg/dL 74-106 BLOOD UREA NITROGEN (test code=BUN) 35 mg/dL 7-18 GLOMERULAR FILTRATION RATE (test code=GFR) 32 mL/min >=60 Estimated GFR by using Modified MDRD formula.Chronic kidney disease is defined as either kidney damageor GFR <60 mL/min/1.73 m2 for >3 months. CREATININE (test code=CREAT) 2.10 mg/dL 0.7-1.3 BUN/CREATININE RATIO (test code=BUN/CREA) 16.7 10-20 CALCIUM (test code=CA) 7.9 mg/dL 8.5-10.1 [id number] 05:00:00* Test Item Value Reference Range Comments PHOSPHORUS (test code=PHOS) 3.7 mg/dL 2.5-4.9 [id number] 05:00:00* Test Item Value Reference Range Comments MAGNESIUM (test code=MAG) 1.7 mg/dL 1.8-2.4 BASIC METABOLIC [id number] 04:54:00* Test Item Value Reference Range Comments SODIUM (test code=NA) 148 mmol/L 136-145 POTASSIUM (test code=K) 3.9 mmol/L 3.5-5.1 CHLORIDE (test code=CL) 120.0 mmol/L 98-107 CARBON DIOXIDE (test code=CO2) mmol/L 21-32 ANION GAP (test code=GAP) 10-20 GLUCOSE (test code=GLU) mg/dL 74-106 BLOOD UREA NITROGEN (test code=BUN) mg/dL 7-18 GLOMERULAR FILTRATION RATE (test code=GFR) mL/min >=60 CREATININE (test code=CREAT) mg/dL 0.7-1.3 BUN/CREATININE RATIO (test code=BUN/CREA) 10-20 CALCIUM (test code=CA) mg/dL 8.5-10.1 [id number] 04:54:00* Test Item Value Reference Range Comments PHOSPHORUS (test code=PHOS) mg/dL 2.5-4.9 [id number] 04:54:00* Test Item Value Reference Range Comments MAGNESIUM (test code=MAG) mg/dL 1.8-2.4 [id number] 20:52:00* Test Item Value Reference Range Comments GLUBED (test code=GLUBED) 83 mg/dL 74-106 Performed by certified staple processing machine operator [facility] [id number] 16:36:00* Test Item Value Reference Range Comments GLUBED (test code=GLUBED) 102 mg/dL 74-106 Performed by certified staple processing machine operator at [facility] [id number] 08:34:00* Test Item Value Reference Range Comments GLUBED (test code=GLUBED) 83 mg/dL 74-106 Performed by certified staple processing machine operator at [facility] BASIC METABOLIC [id number] 06:26:00* Test Item Value Reference Range Comments SODIUM (test code=NA) 148 mmol/L 136-145 POTASSIUM (test code=K) 3.6 mmol/L 3.5-5.1 CHLORIDE (test code=CL) 118.0 mmol/L 98-107 CARBON DIOXIDE (test code=CO2) 25.0 mmol/L 21-32 ANION GAP (test code=GAP) 8.6 10-20 GLUCOSE (test code=GLU) 81 mg/dL 74-106 BLOOD UREA NITROGEN (test code=BUN) 33 mg/dL 7-18 GLOMERULAR FILTRATION RATE (test code=GFR) 32 mL/min >=60 Estimated GFR by using Modified MDRD formula.Chronic kidney disease is defined as either kidney damageor GFR <60 mL/min/1.73 m2 for >3 months. CREATININE (test code=CREAT) 2.10 mg/dL 0.7-1.3 BUN/CREATININE RATIO (test code=BUN/CREA) 15.9 10-20 CALCIUM (test code=CA) 7.6 mg/dL 8.5-10.1 [id number] 06:24:00* Test Item Value Reference Range Comments GLUBED (test code=GLUBED) 86 mg/dL 74-106 Performed by certified staple processing machine operator at [facility] BASIC METABOLIC [id number] 06:16:00* Test Item Value Reference Range Comments SODIUM (test code=NA) 148 mmol/L 136-145 POTASSIUM (test code=K) 3.6 mmol/L 3.5-5.1 CHLORIDE (test code=CL) 118.0 mmol/L 98-107 CARBON DIOXIDE (test code=CO2) mmol/L 21-32 ANION GAP (test code=GAP) 10-20 GLUCOSE (test code=GLU) mg/dL 74-106 BLOOD UREA NITROGEN (test code=BUN) mg/dL 7-18 GLOMERULAR FILTRATION RATE (test code=GFR) mL/min >=60 CREATININE (test code=CREAT) mg/dL 0.7-1.3 BUN/CREATININE RATIO (test code=BUN/CREA) 10-20 CALCIUM (test code=CA) mg/dL 8.5-10.1 [id number] 23:48:00* Test Item Value Reference Range Comments GLUBED (test code=GLUBED) 95 mg/dL 74-106 Performed by certified staple processing machine operator at [facility] [id number] 22:17:00* Test Item Value Reference Range Comments GLUBED (test code=GLUBED) 124 mg/dL 74-106 Performed by certified staple processing machine operator at [facility] [id number] 16:57:00* Test Item Value Reference Range Comments GLUBED (test code=GLUBED) 108 mg/dL 74-106 Performed by certified staple processing machine operator at [facility] BASIC METABOLIC [id number] 10:42:00* Test Item Value Reference Range Comments SODIUM (test code=NA) 145 mmol/L 136-145 POTASSIUM (test code=K) 3.5 mmol/L 3.5-5.1 CHLORIDE (test code=CL) 116.0 mmol/L 98-107 CARBON DIOXIDE (test code=CO2) 26.0 mmol/L 21-32 ANION GAP (test code=GAP) 6.5 10-20 GLUCOSE (test code=GLU) 89 mg/dL 74-106 BLOOD UREA NITROGEN (test code=BUN) 34 mg/dL 7-18 GLOMERULAR FILTRATION RATE (test code=GFR) 29 mL/min >=60 Estimated GFR by using Modified MDRD formula.Chronic kidney disease is defined as either kidney damageor GFR <60 mL/min/1.73 m2 for >3 months. CREATININE (test code=CREAT) 2.30 mg/dL 0.7-1.3 BUN/CREATININE RATIO (test code=BUN/CREA) 14.9 10-20 CALCIUM (test code=CA) 7.5 mg/dL 8.5-10.1 [id number] 08:18:00* Test Item Value Reference Range Comments GLUBED (test code=GLUBED) 97 mg/dL 74-106 Performed by certified staple processing machine operator at [facility] [id number] 01:20:00* Test Item Value Reference Range Comments GLUBED (test code=GLUBED) 101 mg/dL 74-106 Performed by certified staple processing machine operator at [facility] [id number] 16:55:00* Test Item Value Reference Range Comments GLUBED (test code=GLUBED) 104 mg/dL 74-106 Performed by certified staple processing machine operator at [facility] [id number] 11:55:00* Test Item Value Reference Range Comments GLUBED (test code=GLUBED) 107 mg/dL 74-106 Performed by certified staple processing machine operator at [facility] CBC W/AUTO [id number] 09:53:00* Test Item Value Reference Range Comments WHITE BLOOD CELL (test code=WBC) 5.3 K/mm3 4.5-12.5 RED BLOOD CELL (test code=RBC) 2.61 mill/mm3 4.0-5.8 HEMOGLOBIN (test code=HGB) 7.7 gram/dL 13.0-17.5 HEMATOCRIT (test code=HCT) 25.5 % 42.0-52.0 MEAN CELL VOLUME (test code=MCV) 97.7 fL 80-98 MEAN CELL HGB (test code=MCH) 29.5 picogram 27.0-33.0 MEAN CELL HGB CONCETRATION (test code=MCHC) 30.2 gram/dL 33.0-36.0 RED CELL DISTRIBUTION WIDTH (test code=RDW) 14.7 % 11.6-16.2 RED CELL DISTRIBUTION WIDTH SD (test code=RDW-SD) 50.5 fL 37.0-51.0 PLATELET COUNT (test code=PLT) 71 K/mm3 150-450 MEAN PLATELET VOLUME (test code=MPV) 10.2 fL 6.7-11.0 NEUTROPHIL % (test code=NT%) 37.9 % 39.0-69.0 IMMATURE GRANULOCYTE % (test code=IG%) 0.6 % 0.0-5.0 LYMPHOCYTE % (test code=LY%) 40.3 % 25.0-55.0 MONOCYTE % (test code=MO%) 11.9 % 0.0-10.0 EOSINOPHIL % (test code=EO%) 8.5 % 0.0-5.0 BASOPHIL % (test code=BA%) 0.8 % 0.0-1.0 NUCLEATED RBC % (test code=NRBC%) 0.0 % 0-0 NEUTROPHIL # (test code=NT#) 2.02 K/mm3 1.8-7.7 IMMATURE GRANULOCYTE # (test code=IG#) 0.03 x10 3/uL 0-0.03 LYMPHOCYTE # (test code=LY#) 2.14 K/mm3 1.0-5.0 MONOCYTE # (test code=MO#) 0.63 K/mm3 0-0.8 EOSINOPHIL # (test code=EO#) 0.45 K/mm3 0.0-0.5 BASOPHIL # (test code=BA#) 0.04 K/mm3 0.0-0.2 NUCLEATED RBC # (test code=NRBC#) 0.00 K/mm3 0.0-0.1 MANUAL DIFF REQUIRED (test code=MDIFF) NO, ONLY SCAN NEEDED DIFFERENTIAL [id number] 09:53:00* Test Item Value Reference Range Comments STAIN ACCEPTABILITY (test code=STN ACCEPTABLE) STAIN ACCEPTABLE POIKILOCYTOSIS (test code=POIK) 1+ PLATELET ESTIMATE (test code=PLTEST) DECREASED PLATELET MORPHOLOGY (test code=PLTMORPH) APPEAR LARGE [id number] 08:43:00* Test Item Value Reference Range Comments GLUBED (test code=GLUBED) 113 mg/dL 74-106 Performed by certified staple processing machine operator [facility] - XR CHEST 1 [id number] 08:35:00 FAX: Ryan Charles MD [place]: B St: ADM FAX: Dorian Wadsworth [phone] Name: CHEYENNE MISHRA [facility] : 1955 Age/S: 62/M [address] Unit #: [id number] Loc: V.[address] [place] [address] Phys: Dorian Montague PROGRAM DIRECTOR SUBSTANCE ABUSE Acct: [id number] Dis Date: Status: ADM IN PHONE #: [phone] Exam Date: 09/10/2018 0800 FAX #: [phone] Reason: per ST, +Aspiration on thin liquids, assess for EXAMS: CPT CODE: [id number] XR CHEST 1 V 54640 REASON FOR EXAM: per ST, +Aspiration on thin liquids, assess for atelectas EXAM ORDER DATE: 09/10/2018 6:00 AM Ordering John: Dorian Montague NP PROCEDURE: - XR CHEST 1 V COMPARISON: 09/03/2018 FINDINGS: Portable AP frontal view of the chest obtained at 8:01 AM shows diffuse airspace opacities. The heart size is minimally enlarged. Pulmonary vasculatures are minimally congested. IMPRESSION: Congestive heart failure with pulmonary edema at 0835 Reported and signed by: Henrry Wells M.D. CC: Ryan Posey; Dorian Montague NP Technologist: STEPHANY DELEON RT; Nelson Nguyen RT(R) Trnscrd Date/Time/By: 09/10/2018 (0835) : By: Shelli.VTL Orig Print D/T: S: 09/10/2018 (0816) PAGE 1 Signed Report BASIC METABOLIC [id number] 08:33:00* Test Item Value Reference Range Comments SODIUM (test code=NA) 148 mmol/L 136-145 POTASSIUM (test code=K) 3.2 mmol/L 3.5-5.1 CHLORIDE (test code=CL) 117.0 mmol/L 98-107 CARBON DIOXIDE (test code=CO2) 22.0 mmol/L 21-32 ANION GAP (test code=GAP) 12.2 10-20 GLUCOSE (test code=GLU) 93 mg/dL 74-106 BLOOD UREA NITROGEN (test code=BUN) 32 mg/dL 7-18 GLOMERULAR FILTRATION RATE (test code=GFR) 26 mL/min >=60 Estimated GFR by using Modified MDRD formula.Chronic kidney disease is defined as either kidney damageor GFR <60 mL/min/1.73 m2 for >3 months. CREATININE (test code=CREAT) 2.50 mg/dL 0.7-1.3 BUN/CREATININE RATIO (test code=BUN/CREA) 12.6 10-20 CALCIUM (test code=CA) 7.3 mg/dL 8.5-10.1 [id number] 08:33:00* Test Item Value Reference Range Comments AMMONIA (test code=AMM) 74 umol/L 11-32 BASIC METABOLIC [id number] 08:28:00* Test Item Value Reference Range Comments SODIUM (test code=NA) 148 mmol/L 136-145 POTASSIUM (test code=K) 3.2 mmol/L 3.5-5.1 CHLORIDE (test code=CL) 117.0 mmol/L 98-107 CARBON DIOXIDE (test code=CO2) mmol/L 21-32 ANION GAP (test code=GAP) 10-20 GLUCOSE (test code=GLU) mg/dL 74-106 BLOOD UREA NITROGEN (test code=BUN) mg/dL 7-18 GLOMERULAR FILTRATION RATE (test code=GFR) mL/min >=60 CREATININE (test code=CREAT) mg/dL 0.7-1.3 BUN/CREATININE RATIO (test code=BUN/CREA) 10-20 CALCIUM (test code=CA) mg/dL 8.5-10.1 CBC W/AUTO [id number] 07:47:00* Test Item Value Reference Range Comments WHITE BLOOD CELL (test code=WBC) 5.3 K/mm3 4.5-12.5 RED BLOOD CELL (test code=RBC) 2.61 mill/mm3 4.0-5.8 HEMOGLOBIN (test code=HGB) 7.7 gram/dL 13.0-17.5 HEMATOCRIT (test code=HCT) 25.5 % 42.0-52.0 MEAN CELL VOLUME (test code=MCV) 97.7 fL 80-98 MEAN CELL HGB (test code=MCH) 29.5 picogram 27.0-33.0 MEAN CELL HGB CONCETRATION (test code=MCHC) 30.2 gram/dL 33.0-36.0 RED CELL DISTRIBUTION WIDTH (test code=RDW) 14.7 % 11.6-16.2 RED CELL DISTRIBUTION WIDTH SD (test code=RDW-SD) 50.5 fL 37.0-51.0 PLATELET COUNT (test code=PLT) 71 K/mm3 150-450 MEAN PLATELET VOLUME (test code=MPV) 10.2 fL 6.7-11.0 NEUTROPHIL % (test code=NT%) 37.9 % 39.0-69.0 IMMATURE GRANULOCYTE % (test code=IG%) 0.6 % 0.0-5.0 LYMPHOCYTE % (test code=LY%) 40.3 % 25.0-55.0 MONOCYTE % (test code=MO%) 11.9 % 0.0-10.0 EOSINOPHIL % (test code=EO%) 8.5 % 0.0-5.0 BASOPHIL % (test code=BA%) 0.8 % 0.0-1.0 NUCLEATED RBC % (test code=NRBC%) 0.0 % 0-0 NEUTROPHIL # (test code=NT#) 2.02 K/mm3 1.8-7.7 IMMATURE GRANULOCYTE # (test code=IG#) 0.03 x10 3/uL 0-0.03 LYMPHOCYTE # (test code=LY#) 2.14 K/mm3 1.0-5.0 MONOCYTE # (test code=MO#) 0.63 K/mm3 0-0.8 EOSINOPHIL # (test code=EO#) 0.45 K/mm3 0.0-0.5 BASOPHIL # (test code=BA#) 0.04 K/mm3 0.0-0.2 NUCLEATED RBC # (test code=NRBC#) 0.00 K/mm3 0.0-0.1 MANUAL DIFF REQUIRED (test code=MDIFF) NO, ONLY SCAN NEEDED DIFFERENTIAL [id number] 07:47:00* Test Item Value Reference Range Comments STAIN ACCEPTABILITY (test code=STN ACCEPTABLE) CABOT RINGS (test code=CAB) MORPHOLOGY COMMENT (test code=MOC) PLATELET ESTIMATE (test code=PLTEST) PLATELET MORPHOLOGY (test code=PLTMORPH) CBC W/AUTO [id number] 07:47:00* Test Item Value Reference Range Comments WHITE BLOOD CELL (test code=WBC) 5.3 K/mm3 4.5-12.5 RED BLOOD CELL (test code=RBC) 2.61 mill/mm3 4.0-5.8 HEMOGLOBIN (test code=HGB) 7.7 gram/dL 13.0-17.5 HEMATOCRIT (test code=HCT) 25.5 % 42.0-52.0 MEAN CELL VOLUME (test code=MCV) 97.7 fL 80-98 MEAN CELL HGB (test code=MCH) 29.5 picogram 27.0-33.0 MEAN CELL HGB CONCETRATION (test code=MCHC) 30.2 gram/dL 33.0-36.0 RED CELL DISTRIBUTION WIDTH (test code=RDW) 14.7 % 11.6-16.2 RED CELL DISTRIBUTION WIDTH SD (test code=RDW-SD) 50.5 fL 37.0-51.0 PLATELET COUNT (test code=PLT) 71 K/mm3 150-450 MEAN PLATELET VOLUME (test code=MPV) 10.2 fL 6.7-11.0 NEUTROPHIL % (test code=NT%) 37.9 % 39.0-69.0 IMMATURE GRANULOCYTE % (test code=IG%) 0.6 % 0.0-5.0 LYMPHOCYTE % (test code=LY%) 40.3 % 25.0-55.0 MONOCYTE % (test code=MO%) 11.9 % 0.0-10.0 EOSINOPHIL % (test code=EO%) 8.5 % 0.0-5.0 BASOPHIL % (test code=BA%) 0.8 % 0.0-1.0 NUCLEATED RBC % (test code=NRBC%) 0.0 % 0-0 NEUTROPHIL # (test code=NT#) 2.02 K/mm3 1.8-7.7 IMMATURE GRANULOCYTE # (test code=IG#) 0.03 x10 3/uL 0-0.03 LYMPHOCYTE # (test code=LY#) 2.14 K/mm3 1.0-5.0 MONOCYTE # (test code=MO#) 0.63 K/mm3 0-0.8 EOSINOPHIL # (test code=EO#) 0.45 K/mm3 0.0-0.5 BASOPHIL # (test code=BA#) 0.04 K/mm3 0.0-0.2 NUCLEATED RBC # (test code=NRBC#) 0.00 K/mm3 0.0-0.1 MANUAL DIFF REQUIRED (test code=MDIFF) NO, ONLY SCAN NEEDED DIFFERENTIAL [id number] 07:47:00* Test Item Value Reference Range Comments STAIN ACCEPTABILITY (test code=STN ACCEPTABLE) MORPHOLOGY COMMENT (test code=MOC) PLATELET ESTIMATE (test code=PLTEST) PLATELET MORPHOLOGY (test code=PLTMORPH) CBC W/AUTO [id number] 07:47:00* Test Item Value Reference Range Comments WHITE BLOOD CELL (test code=WBC) 5.3 K/mm3 4.5-12.5 RED BLOOD CELL (test code=RBC) 2.61 mill/mm3 4.0-5.8 HEMOGLOBIN (test code=HGB) 7.7 gram/dL 13.0-17.5 HEMATOCRIT (test code=HCT) 25.5 % 42.0-52.0 MEAN CELL VOLUME (test code=MCV) 97.7 fL 80-98 MEAN CELL HGB (test code=MCH) 29.5 picogram 27.0-33.0 MEAN CELL HGB CONCETRATION (test code=MCHC) 30.2 gram/dL 33.0-36.0 RED CELL DISTRIBUTION WIDTH (test code=RDW) 14.7 % 11.6-16.2 RED CELL DISTRIBUTION WIDTH SD (test code=RDW-SD) 50.5 fL 37.0-51.0 PLATELET COUNT (test code=PLT) 71 K/mm3 150-450 MEAN PLATELET VOLUME (test code=MPV) 10.2 fL 6.7-11.0 NEUTROPHIL % (test code=NT%) 37.9 % 39.0-69.0 IMMATURE GRANULOCYTE % (test code=IG%) 0.6 % 0.0-5.0 LYMPHOCYTE % (test code=LY%) 40.3 % 25.0-55.0 MONOCYTE % (test code=MO%) 11.9 % 0.0-10.0 EOSINOPHIL % (test code=EO%) 8.5 % 0.0-5.0 BASOPHIL % (test code=BA%) 0.8 % 0.0-1.0 NUCLEATED RBC % (test code=NRBC%) 0.0 % 0-0 NEUTROPHIL # (test code=NT#) 2.02 K/mm3 1.8-7.7 IMMATURE GRANULOCYTE # (test code=IG#) 0.03 x10 3/uL 0-0.03 LYMPHOCYTE # (test code=LY#) 2.14 K/mm3 1.0-5.0 MONOCYTE # (test code=MO#) 0.63 K/mm3 0-0.8 EOSINOPHIL # (test code=EO#) 0.45 K/mm3 0.0-0.5 BASOPHIL # (test code=BA#) 0.04 K/mm3 0.0-0.2 NUCLEATED RBC # (test code=NRBC#) 0.00 K/mm3 0.0-0.1 MANUAL DIFF REQUIRED (test code=MDIFF) NO, ONLY SCAN NEEDED DIFFERENTIAL [id number] 07:47:00* Test Item Value Reference Range Comments STAIN ACCEPTABILITY (test code=STN ACCEPTABLE) MORPHOLOGY COMMENT (test code=MOC) PLATELET ESTIMATE (test code=PLTEST) PLATELET MORPHOLOGY (test code=PLTMORPH) CBC W/AUTO [id number] 07:47:00* Test Item Value Reference Range Comments WHITE BLOOD CELL (test code=WBC) 5.3 K/mm3 4.5-12.5 RED BLOOD CELL (test code=RBC) 2.61 mill/mm3 4.0-5.8 HEMOGLOBIN (test code=HGB) 7.7 gram/dL 13.0-17.5 HEMATOCRIT (test code=HCT) 25.5 % 42.0-52.0 MEAN CELL VOLUME (test code=MCV) 97.7 fL 80-98 MEAN CELL HGB (test code=MCH) 29.5 picogram 27.0-33.0 MEAN CELL HGB CONCETRATION (test code=MCHC) 30.2 gram/dL 33.0-36.0 RED CELL DISTRIBUTION WIDTH (test code=RDW) 14.7 % 11.6-16.2 RED CELL DISTRIBUTION WIDTH SD (test code=RDW-SD) 50.5 fL 37.0-51.0 PLATELET COUNT (test code=PLT) 71 K/mm3 150-450 MEAN PLATELET VOLUME (test code=MPV) 10.2 fL 6.7-11.0 NEUTROPHIL % (test code=NT%) 37.9 % 39.0-69.0 IMMATURE GRANULOCYTE % (test code=IG%) 0.6 % 0.0-5.0 LYMPHOCYTE % (test code=LY%) 40.3 % 25.0-55.0 MONOCYTE % (test code=MO%) 11.9 % 0.0-10.0 EOSINOPHIL % (test code=EO%) 8.5 % 0.0-5.0 BASOPHIL % (test code=BA%) 0.8 % 0.0-1.0 NUCLEATED RBC % (test code=NRBC%) 0.0 % 0-0 NEUTROPHIL # (test code=NT#) 2.02 K/mm3 1.8-7.7 IMMATURE GRANULOCYTE # (test code=IG#) 0.03 x10 3/uL 0-0.03 LYMPHOCYTE # (test code=LY#) 2.14 K/mm3 1.0-5.0 MONOCYTE # (test code=MO#) 0.63 K/mm3 0-0.8 EOSINOPHIL # (test code=EO#) 0.45 K/mm3 0.0-0.5 BASOPHIL # (test code=BA#) 0.04 K/mm3 0.0-0.2 NUCLEATED RBC # (test code=NRBC#) 0.00 K/mm3 0.0-0.1 MANUAL DIFF REQUIRED (test code=MDIFF) NO, ONLY SCAN NEEDED DIFFERENTIAL [id number] 07:47:00* Test Item Value Reference Range Comments STAIN ACCEPTABILITY (test code=STN ACCEPTABLE) CABOT RINGS (test code=CAB) MORPHOLOGY COMMENT (test code=MOC) PLATELET ESTIMATE (test code=PLTEST) PLATELET MORPHOLOGY (test code=PLTMORPH) [id number] 00:42:00* Test Item Value Reference Range Comments GLUBED (test code=GLUBED) 120 mg/dL 74-106 Performed by certified staple processing machine operator at [facility] [id number] 18:40:00* Test Item Value Reference Range Comments GLUBED (test code=GLUBED) 126 mg/dL 74-106 Performed by certified staple processing machine [facility] - XR SWLW FUN W/C [id number] 13:15:00 FAX: Ryan Charles MD [place]: B St: ADM FAX: Dorian Wadsworth [phone] Name: CHEYENNE MISHRA [facility] : 1955 Age/S: 62/M [address] Unit #: [id number] Loc: V.4020 [place] [address] Phys: Dorian Montague 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 This study was performed in concert with the speech pathologist. Varying grades of barium were administered. Aspiration with thin liquids. IMPRESSION: Aspiration with thin liquids. For detailed evaluation please see the accompanying sheet provided by the speech therapist. Fluoroscopy time utilized was 95.2 seconds and 5 images were obtained. at 8447 Reported and signed by: Rodolfo Eckert M.D. CC: Ryan Posey; Dorian Montague NP Technologist: Juana Adams RT(R) Trnscrd Date/Time/By: 09/09/2018 (1195) : By: [email or web address] Orig Print D/T: S: 09/09/2018 (2388) PAGE 1 Signed Report ACUTE HEPATITIS [id number] 09:21:00* Test Item Value Reference Range Comments AB HEPATITIS A IGM (test code=HAVMAB) Negative Negative AG HEPAT B SURF (test code=HBSAG) Negative Negative HEPATITIS B CORE ANTIBODY,IGM (test code=HBCMAB) Negative Negative AB HEPATITIS C (test code=HCVAB) >11.0 0.0-0.9 INFCE Result Units: s/co ratio Negative: < 0.8 Indeterminate: 0.8 - 0.9 Positive: > 0.9 The CDC recommends that a positive HCV antibody result be followed up with a HCV Nucleic Acid Amplification test (220206).Performed At: [facility] [id number] Kyle L MD Ph:[phone] AB ANTI-GLOMERULAR BASMNT [id number] 09:21:00* Test Item Value Reference Range Comments AB ANTI-GLOMERULAR BASMNT MRBN (test code=GLOMAB) Units/mL NEUTROPHIL CYTOPLASMIC [id number] 09:21:00* Test Item Value Reference Range Comments AB ANTI-NEUTROPHIL CYTOPLASMIC (test code=NEUTCAB) <1:20 AB ANTI-NEUTROPHIL CYTO. P (test code=NEUTCAB-P) <1:20 ATYPICAL ANCA (test code=ANCACOM) <1:20 AB DNA DOUBLE [id number] 09:21:00* Test Item Value Reference Range Comments AB DNA DOUBLE STRAND (test code=DNADSAB) 1 IU/mL 0-9 Negative <5 Equivocal 5 - 9 Positive >9Performed At: [facility] [address] [place], [place] [id number] Ang Gloria MD Ph:[phone] [id number] 09:01:00* Test Item Value Reference Range Comments GLUBED (test code=GLUBED) 81 mg/dL 74-106 Performed by certified staple processing machine operator [facility] BASIC METABOLIC [id number] 05:58:00* Test Item Value Reference Range Comments SODIUM (test code=NA) 148 mmol/L 136-145 POTASSIUM (test code=K) 3.8 mmol/L 3.5-5.1 CHLORIDE (test code=CL) 117.0 mmol/L 98-107 CARBON DIOXIDE (test code=CO2) 21.0 mmol/L 21-32 ANION GAP (test code=GAP) 13.8 10-20 GLUCOSE (test code=GLU) 79 mg/dL 74-106 BLOOD UREA NITROGEN (test code=BUN) 33 mg/dL 7-18 GLOMERULAR FILTRATION RATE (test code=GFR) 24 mL/min >=60 Estimated GFR by using Modified MDRD formula.Chronic kidney disease is defined as either kidney damageor GFR <60 mL/min/1.73 m2 for >3 months. CREATININE (test code=CREAT) 2.70 mg/dL 0.7-1.3 BUN/CREATININE RATIO (test code=BUN/CREA) 12.1 10-20 CALCIUM (test code=CA) 7.7 mg/dL 8.5-10.1 [id number] 05:58:00* Test Item Value Reference Range Comments MAGNESIUM (test code=MAG) 1.7 mg/dL 1.8-2.4 CBC W/AUTO [id number] 05:33:00* Test Item Value Reference Range Comments WHITE BLOOD CELL (test code=WBC) 10.3 K/mm3 4.5-12.5 RED BLOOD CELL (test code=RBC) 2.98 mill/mm3 4.0-5.8 HEMOGLOBIN (test code=HGB) 8.9 gram/dL 13.0-17.5 HEMATOCRIT (test code=HCT) 28.6 % 42.0-52.0 MEAN CELL VOLUME (test code=MCV) 96.0 fL 80-98 MEAN CELL HGB (test code=MCH) 29.9 picogram 27.0-33.0 MEAN CELL HGB CONCETRATION (test code=MCHC) 31.1 gram/dL 33.0-36.0 RED CELL DISTRIBUTION WIDTH (test code=RDW) 14.7 % 11.6-16.2 RED CELL DISTRIBUTION WIDTH SD (test code=RDW-SD) 49.1 fL 37.0-51.0 PLATELET COUNT (test code=PLT) 88 K/mm3 150-450 MEAN PLATELET VOLUME (test code=MPV) 10.6 fL 6.7-11.0 NEUTROPHIL % (test code=NT%) 42.3 % 39.0-69.0 IMMATURE GRANULOCYTE % (test code=IG%) 0.8 % 0.0-5.0 LYMPHOCYTE % (test code=LY%) 41.3 % 25.0-55.0 MONOCYTE % (test code=MO%) 10.1 % 0.0-10.0 EOSINOPHIL % (test code=EO%) 4.9 % 0.0-5.0 BASOPHIL % (test code=BA%) 0.6 % 0.0-1.0 NUCLEATED RBC % (test code=NRBC%) 0.0 % 0-0 NEUTROPHIL # (test code=NT#) 4.35 K/mm3 1.8-7.7 IMMATURE GRANULOCYTE # (test code=IG#) 0.08 x10 3/uL 0-0.03 LYMPHOCYTE # (test code=LY#) 4.24 K/mm3 1.0-5.0 MONOCYTE # (test code=MO#) 1.04 K/mm3 0-0.8 EOSINOPHIL # (test code=EO#) 0.50 K/mm3 0.0-0.5 BASOPHIL # (test code=BA#) 0.06 K/mm3 0.0-0.2 NUCLEATED RBC # (test code=NRBC#) 0.00 K/mm3 0.0-0.1 ACUTE HEPATITIS [id number] 05:14:00* Test Item Value Reference Range Comments AB HEPATITIS A IGM (test code=HAVMAB) Negative Negative AG HEPAT B SURF (test code=HBSAG) Negative Negative HEPATITIS B CORE ANTIBODY,IGM (test code=HBCMAB) Negative Negative AB HEPATITIS C (test code=HCVAB) >11.0 0.0-0.9 INFCE Result Units: s/co ratio Negative: < 0.8 Indeterminate: 0.8 - 0.9 Positive: > 0.9 The CDC recommends that a positive HCV antibody result be followed up with a HCV Nucleic Acid Amplification test ([id number]).Performed At: [facility] [address] [id number] Ang Gloria MD Ph:[phone] AB ANTI-GLOMERULAR BASMNT [id number] 05:14:00* Test Item Value Reference Range Comments AB ANTI-GLOMERULAR BASMNT MRBN (test code=GLOMAB) Units/mL NEUTROPHIL CYTOPLASMIC [id number] 05:14:00* Test Item Value Reference Range Comments AB ANTI-NEUTROPHIL CYTOPLASMIC (test code=NEUTCAB) <1:20 AB ANTI-NEUTROPHIL CYTO. P (test code=NEUTCAB-P) <1:20 ATYPICAL ANCA (test code=ANCACOM) <1:20 AB DNA DOUBLE [id number] 05:14:00* Test Item Value Reference Range Comments AB DNA DOUBLE STRAND (test code=DNADSAB) IUnit/mL 0-9 [id number] 21:48:00* Test Item Value Reference Range Comments GLUBED (test code=GLUBED) 104 mg/dL 74-106 Performed by certified staple processing machine operator at [facility] UR PROTEIN [id number] 17:10:00* Test Item Value Reference Range Comments UR TOTAL PROTEIN (test code=PROTEU) 128.3 mg/dL Not Estab. UR ALBUMIN (test code=ALBEU) 38.5 % NOT ESTAB. UR EZOHL-1-ECJXYHZT (test code=A1GU) 1.1 % NOT ESTAB. UR GJFXA-8-DKIFHFWZ (test code=A2GU) 4.8 % NOT ESTAB. UR BETA GLOBULIN (test code=BGU) 26.6 % NOT ESTAB. UR GAMMA GLOBULIN (test code=GGU) 29.0 % NOT ESTAB. UR PROT ELECTROPHORESIS INTERP (test code=ELEUINT) () Protein electrophoresis scan will follow via computer,mail, or tele rn delivery.Performed At: [address] [id number] Gloria MD Ph:[phone] At: [address] [place] [id number] CN MD Ph:[phone] MONOCLONAL SPIKE (test code=MONOSPIKE) Not Observed % Not Observed UR PROTEIN 24HR (test code=EILL34W) 1475.00 mg/24 hr 30-150 UR VOLUME 24 HOUR (test code=VOL24) mL/24hrs 8716-1922 VOLUME 1150 [id number] 16:43:00* Test Item Value Reference Range Comments GLUBED (test code=GLUBED) 121 mg/dL 74-106 Performed by certified staple processing machine operator at [facility] UR PROTEIN [id number] 16:12:00* Test Item Value Reference Range Comments UR TOTAL PROTEIN (test code=PROTEU) 128.3 mg/dL Not Estab. UR ALBUMIN (test code=ALBEU) 38.5 % NOT ESTAB. UR AMAGO-9-UOPXCZZS (test code=A1GU) 1.1 % NOT ESTAB. UR TOBUC-6-BLJGSXVP (test code=A2GU) 4.8 % NOT ESTAB. UR BETA GLOBULIN (test code=BGU) 26.6 % NOT ESTAB. UR GAMMA GLOBULIN (test code=GGU) 29.0 % NOT ESTAB. UR PROT ELECTROPHORESIS INTERP (test code=ELEUINT) () Protein electrophoresis scan will follow via computer,mail, or tele rn delivery.Performed At: [address] [id number] Gloria MD Ph:[phone] At: [address] [id number] CN MD Ph:[phone] UR PROTEIN 24HR (test code=LNOY61R) 1475.00 mg/24 hr 30-150 UR VOLUME 24 HOUR (test code=VOL24) mL/24hrs 5571-5325 VOLUME 1150 [id number] 12:06:00* Test Item Value Reference Range Comments GLUBED (test code=GLUBED) 74 mg/dL 74-106 Performed by certified staple processing machine operator [facility] BASIC METABOLIC [id number] 05:46:00* Test Item Value Reference Range Comments SODIUM (test code=NA) 150 mmol/L 136-145 POTASSIUM (test code=K) 3.5 mmol/L 3.5-5.1 CHLORIDE (test code=CL) 119.0 mmol/L 98-107 CARBON DIOXIDE (test code=CO2) mmol/L 21-32 ANION GAP (test code=GAP) 10-20 GLUCOSE (test code=GLU) mg/dL 74-106 BLOOD UREA NITROGEN (test code=BUN) mg/dL 7-18 GLOMERULAR FILTRATION RATE (test code=GFR) mL/min >=60 CREATININE (test code=CREAT) mg/dL 0.7-1.3 BUN/CREATININE RATIO (test code=BUN/CREA) 10-20 CALCIUM (test code=CA) mg/dL 8.5-10.1 [id number] 05:46:00* Test Item Value Reference Range Comments MAGNESIUM (test code=MAG) mg/dL 1.8-2.4 BASIC METABOLIC [id number] 05:46:00* Test Item Value Reference Range Comments SODIUM (test code=NA) 150 mmol/L 136-145 POTASSIUM (test code=K) 3.5 mmol/L 3.5-5.1 CHLORIDE (test code=CL) 119.0 mmol/L 98-107 CARBON DIOXIDE (test code=CO2) 22.0 mmol/L 21-32 ANION GAP (test code=GAP) 12.5 10-20 GLUCOSE (test code=GLU) 84 mg/dL 74-106 BLOOD UREA NITROGEN (test code=BUN) 32 mg/dL 7-18 GLOMERULAR FILTRATION RATE (test code=GFR) 23 mL/min >=60 Estimated GFR by using Modified MDRD formula.Chronic kidney disease is defined as either kidney damageor GFR <60 mL/min/1.73 m2 for >3 months. CREATININE (test code=CREAT) 2.80 mg/dL 0.7-1.3 BUN/CREATININE RATIO (test code=BUN/CREA) 11.3 10-20 CALCIUM (test code=CA) 7.8 mg/dL 8.5-10.1 [id number] 05:46:00* Test Item Value Reference Range Comments MAGNESIUM (test code=MAG) 1.8 mg/dL 1.8-2.4 [id number] 20:43:00* Test Item Value Reference Range Comments GLUBED (test code=GLUBED) 200 mg/dL 74-106 Performed by certified staple processing machine operator at [facility] PROTEIN ELECTROPHORESIS [id number] 19:10:00* Test Item Value Reference Range Comments TOTAL PROTEIN (test code=PROTE) 4.9 g/dL 6.0-8.5 ALBUMIN (test code=ALBE) 1.4 g/dL 2.9-4.4 VTYMU-4-QHYZTSCG (test code=A1G) 0.1 g/dL 0.0-0.4 BKULS-2-TGVTZOTM (test code=A2G) 0.2 g/dL 0.4-1.0 BETA GLOBULIN (test code=BG) 0.8 g/dL 0.7-1.3 GAMMA GLOBULIN (test code=GG) 2.4 g/dL 0.4-1.8 M-SPIKE,SERUM (test code=MSPIKES) Not Observed g/dL Not Observed GLOBULIN ELECT (test code=GLOBE) 3.5 g/dL 2.2-3.9 INTERPRETATION (test code=ELEINT) () 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 The bridging isdue to increases of IgA and IgG which tend to converge inthis region. Beta- gamma bridging has also been observed insome malignancies and inflammatory disease, however, inthese cases, there is also elevation of the alpha-1 andalpha-2 globulins.Performed At: [facility] [address] [place], [place] [id number] Gloria MD Ph:[phone] At: [facility] [address] [facility] [address] [place], [place] [id number] CN MD Ph:[phone] KAPPA LAMBDA [id number] 19:10:00* Test Item Value Reference Range Comments KAPPA CHAINS (FLOW) (test code=KAPPA) 217.7 mg/L 3.3-19.4 LAMBDA CHAINS (FLOW) (test code=LAMBDA) 113.9 mg/L 5.7-26.3 KAPPA/LAMBDA RATIO (test code=SANCHEZ/RIVERA) 1.91 0.26-1.65 Performed At: [facility] [address] [facility] [address] [place], [place] [id number] CN MD Ph:[phone] BASIC METABOLIC [id number] 07:29:00* Test Item Value Reference Range Comments SODIUM (test code=NA) 150 mmol/L 136-145 POTASSIUM (test code=K) 3.2 mmol/L 3.5-5.1 CHLORIDE (test code=CL) 119.0 mmol/L 98-107 CARBON DIOXIDE (test code=CO2) 24.0 mmol/L 21-32 ANION GAP (test code=GAP) 10.2 10-20 GLUCOSE (test code=GLU) 81 mg/dL 74-106 BLOOD UREA NITROGEN (test code=BUN) 37 mg/dL 7-18 GLOMERULAR FILTRATION RATE (test code=GFR) 20 mL/min >=60 Estimated GFR by using Modified MDRD formula.Chronic kidney disease is defined as either kidney damageor GFR <60 mL/min/1.73 m2 for >3 months. CREATININE (test code=CREAT) 3.10 mg/dL 0.7-1.3 BUN/CREATININE RATIO (test code=BUN/CREA) 11.9 10-20 CALCIUM (test code=CA) 7.7 mg/dL 8.5-10.1 [id number] 07:29:00* Test Item Value Reference Range Comments PHOSPHORUS (test code=PHOS) 4.6 mg/dL 2.5-4.9 [id number] 07:29:00* Test Item Value Reference Range Comments MAGNESIUM (test code=MAG) 1.8 mg/dL 1.8-2.4 BASIC METABOLIC [id number] 07:26:00* Test Item Value Reference Range Comments SODIUM (test code=NA) 150 mmol/L 136-145 POTASSIUM (test code=K) 3.2 mmol/L 3.5-5.1 CHLORIDE (test code=CL) 119.0 mmol/L 98-107 CARBON DIOXIDE (test code=CO2) mmol/L 21-32 ANION GAP (test code=GAP) 10-20 GLUCOSE (test code=GLU) mg/dL 74-106 BLOOD UREA NITROGEN (test code=BUN) mg/dL 7-18 GLOMERULAR FILTRATION RATE (test code=GFR) mL/min >=60 CREATININE (test code=CREAT) mg/dL 0.7-1.3 BUN/CREATININE RATIO (test code=BUN/CREA) 10-20 CALCIUM (test code=CA) mg/dL 8.5-10.1 [id number] 07:26:00* Test Item Value Reference Range Comments PHOSPHORUS (test code=PHOS) mg/dL 2.5-4.9 [id number] 07:26:00* Test Item Value Reference Range Comments MAGNESIUM (test code=MAG) mg/dL 1.8-2.4 [id number] 20:37:00* Test Item Value Reference Range Comments GLUBED (test code=GLUBED) 92 mg/dL 74-106 Performed by certified staple processing machine operator at [facility] PROTEIN ELECTROPHORESIS [id number] 16:11:00* Test Item Value Reference Range Comments TOTAL PROTEIN (test code=PROTE) gram/dL 6.0-8.5 ALBUMIN (test code=ALBE) gram/dL 2.9-4.4 AXLEV-2-SQXGNCYM (test code=A1G) 0.0-0.4 ISXBD-6-FLIAWIVX (test code=A2G) gram/dL 0.4-1.0 BETA GLOBULIN (test code=BG) gram/dL 0.7-1.3 GAMMA GLOBULIN (test code=GG) gram/dL 0.4-1.8 M-SPIKE,SERUM (test code=MSPIKES) Not Observe GLOBULIN ELECT (test code=GLOBE) 2.2-3.9 KAPPA LAMBDA [id number] 16:11:00* Test Item Value Reference Range Comments KAPPA CHAINS (FLOW) (test code=KAPPA) 217.7 mg/L 3.3-19.4 LAMBDA CHAINS (FLOW) (test code=LAMBDA) 113.9 mg/L 5.7-26.3 KAPPA/LAMBDA RATIO (test code=SANCHEZ/RIVERA) 1.91 0.26-1.65 Performed At: [facility] [address] [place], [place] [id number] CN MD Ph:[phone] UR MICROALBUMIN/CREAT [id number] 14:15:00* Test Item Value Reference Range Comments UR CREATININE RANDOM-NON REPRT (test code=CREATUT) 66.9 mg/dL Not Estab. UR MICROALBUMIN QUANT (test code=MICALB) 282.7 ug/mL Not Estab. UR MICROALB/CREAT RATIO (test code=MICALB:CRE) 422.6 0.0-30.0 INFCE Result Units: mg/g creat Normal: 0.0 - 30.0 Albuminuria: 31.0 - 300.0 Clinical albuminuria: >300.0Performed At: [facility] [address] [place], [place] [id number] Kyle L MD Ph:[phone] BASIC METABOLIC [id number] 06:12:00* Test Item Value Reference Range Comments SODIUM (test code=NA) 149 mmol/L 136-145 POTASSIUM (test code=K) 3.5 mmol/L 3.5-5.1 CHLORIDE (test code=CL) 118.0 mmol/L 98-107 CARBON DIOXIDE (test code=CO2) 20.0 mmol/L 21-32 ANION GAP (test code=GAP) 14.5 10-20 GLUCOSE (test code=GLU) 95 mg/dL 74-106 BLOOD UREA NITROGEN (test code=BUN) 40 mg/dL 7-18 GLOMERULAR FILTRATION RATE (test code=GFR) 18 mL/min >=60 Estimated GFR by using Modified MDRD formula.Chronic kidney disease is defined as either kidney damageor GFR <60 mL/min/1.73 m2 for >3 months. CREATININE (test code=CREAT) 3.40 mg/dL 0.7-1.3 BUN/CREATININE RATIO (test code=BUN/CREA) 11.8 10-20 CALCIUM (test code=CA) 7.8 mg/dL 8.5-10.1 [id number] 06:12:00* Test Item Value Reference Range Comments ALBUMIN (test code=ALB) 0.9 g/dL 3.4-5.0 [id number] 06:12:00* Test Item Value Reference Range Comments PHOSPHORUS (test code=PHOS) 5.5 mg/dL 2.5-4.9 [id number] 06:12:00* Test Item Value Reference Range Comments MAGNESIUM (test code=MAG) 2.0 mg/dL 1.8-2.4 CBC W/O [id number] 05:41:00* Test Item Value Reference Range Comments WHITE BLOOD CELL (test code=WBC) 9.4 K/mm3 4.5-12.5 RED BLOOD CELL (test code=RBC) 2.75 mill/mm3 4.0-5.8 HEMOGLOBIN (test code=HGB) 8.3 gram/dL 13.0-17.5 HEMATOCRIT (test code=HCT) 27.0 % 42.0-52.0 MEAN CELL VOLUME (test code=MCV) 98.2 fL 80-98 MEAN CELL HGB (test code=MCH) 30.2 picogram 27.0-33.0 MEAN CELL HGB CONCETRATION (test code=MCHC) 30.7 gram/dL 33.0-36.0 RED CELL DISTRIBUTION WIDTH (test code=RDW) 13.9 % 11.6-16.2 PLATELET COUNT (test code=PLT) 82 K/mm3 150-450 MEAN PLATELET VOLUME (test code=MPV) 10.1 fL 6.7-11.0 BLOOD UREA [id number] 16:23:00* Test Item Value Reference Range Comments BLOOD UREA NITROGEN (test code=BUN) 39 mg/dL 7-18 [id number] 16:23:00* Test Item Value Reference Range Comments CREATININE (test code=CREAT) 3.60 mg/dL 0.7-1.3 [id number] 16:23:00* Test Item Value Reference Range Comments PHOSPHORUS (test code=PHOS) 5.9 mg/dL 2.5-4.9 0641- US RETRO [id number] 14:30:00 Name: CHEYENNE MISHRA [facility] : 1955 Age/S: 62 / M [address] [facility] Unit #: [id number] Loc: [place] [address] Phys: Kelechi Carbajal MD Acct: [id number] Dis Date: Status: ADM IN PHONE #: [phone] Exam Date: 09/05/2018 1320 FAX #: [phone] Reason: nia EXAMS: CPT CODE: [id number] [facility] [address] EXAM: Ultrasound retroperitoneum, limited; INFORMATION: Acute kidney injury; UTI; creatinine 3.9; FINDINGS: The kidneys are of normal size and shape; no hydronephrosis, no stones and no parenchymal abnormalities. The right kidney measures 11.9 x 6.3 x 6 cm, with a parenchymal thickness of 1.9 cm. The left kidney measures 12.1 x 5.6 x 5.4 cm, with a parenchymal thickness of 1.8 cm. The urinary bladder has been decompressed with a Amaro catheter. Small amount of ascites is seen. IMPRESSION: Unremarkable ultrasound of the kidneys. No evidence of hydronephrosis or stones. at 1430 Reported and signed by: Mart Estevez M.D. CC: Kelechi Carbajal MD; Ryan Posey Technologist: AISLINN IVERSON Trnksb Date/Time: 09/05/2018 (9233) [id number] Orig Print D/T: S: 09/05/2018 (3207) Probe: PAGE 1 Signed Report TOTAL [id number] 08:04:00* Test Item Value Reference Range Comments TOTAL T3 (test code=T3) 75 ng/dL 71-180 Performed At: [facility] [id number] Kyle L MD Ph:[phone] T4 [id number] 08:04:00* Test Item Value Reference Range Comments T4 FREE (test code=T4F) 0.60 ng/dL 0.76-1.46 URINALYSIS [id number] 02:58:00* Test Item Value Reference Range Comments UA COLOR (test code=COLU) YELLOW YELLOW UA APPEARANCE (test code=APPU) SLIGHTLY CLOUDY CLEAR UA GLUCOSE DIPSTICK (test code=DGLUU) NEGATIVE mg/dL NEGATIVE UA BILIRUBIN DIPSTICK (test code=BILU) NEGATIVE mg/dL NEGATIVE UA KETONE DIPSTICK (test code=KETU) Negative mg/dL NEGATIVE UA SPECIFIC GRAVITY (test code=SGU) 1.013 1.001-1.035 UA BLOOD DIPSTICK (test code=MARIBETH) 3+ (Large) NEGATIVE UA PH DIPSTICK (test code=DAVID) 5.0 5.0-8.0 UA PROTEIN DIPSTICK (test code=PROU) 30 (1+) mg/dL NEGATIVE UA UROBILINIOGEN DIPSTICK (test code=URO) NEGATIVE mg/dL NEGATIVE UA NITRITE DIPSTICK (test code=PEPITO) NEGATIVE NEGATIVE UA LEUKOCYTE ESTERASE W REFLEX (test code=LEUUR) 2+ NEGATIVE UA WBC (test code=WBCU) 20-30 #/HPF 0-5 UA RBC (test code=RBCU) >20 #/HPF 0-5 UA EPITHELIAL CELLS (test code=EPIU) FEW per HPF FEW UA BACTERIA (test code=BACU) FEW #/HPF NONE UA MUCUS (test code=MUCU) FEW #/LPF FEW UA YEAST (test code=YEASTU) MODERATE #/HPF NONE Urine Source? [facility] SMEAR EOSINOPHIL [id number] 02:58:00* Test Item Value Reference Range Comments UR SMEAR EOSINOPHIL COUNT (test code=EOSCTU) NONE SEEN per HPF NONE SEEN Urine Source? [facility] NA,[id number] 02:58:00* Test Item Value Reference Range Comments UR NA,RANDOM (test code=GLEN) 62 mmol/L 20-110 Urine Source? [facility] CHLORIDE [id number] 02:58:00* Test Item Value Reference Range Comments UR CHLORIDE RANDOM (test code=CLU) 69 mEq/L Urine Source? [facility] PROTEIN/CREATININE [id number] 02:58:00* Test Item Value Reference Range Comments UR PROTEIN RANDOM (test code=PROTU) 115.3 mg/dL 0.0-11.9 Protein levels may be falsely elevated in patients withelevated level of aminoglycoside antibiotics in CSF and inhighly concentrated urine specimens. If false elevation issuspected, contact lab for alternated testing technique. UR CREATININE RANDOM (test code=CREATU) 74.0 mg/dL 30-125 PROTEIN/CREATININE RATIO (test code=P/CRATIO) 1.56 RATIO 0.0-0.20 Urine Source? Clean CatchURINALYSIS [id number] 02:06:00* Test Item Value Reference Range Comments UA COLOR (test code=COLU) YELLOW YELLOW UA APPEARANCE (test code=APPU) SLIGHTLY CLOUDY CLEAR UA GLUCOSE DIPSTICK (test code=DGLUU) NEGATIVE mg/dL NEGATIVE UA BILIRUBIN DIPSTICK (test code=BILU) NEGATIVE mg/dL NEGATIVE UA KETONE DIPSTICK (test code=KETU) Negative mg/dL NEGATIVE UA SPECIFIC GRAVITY (test code=SGU) 1.013 1.001-1.035 UA BLOOD DIPSTICK (test code=MARIBETH) 3+ (Large) NEGATIVE UA PH DIPSTICK (test code=DAVID) 5.0 5.0-8.0 UA PROTEIN DIPSTICK (test code=PROU) 30 (1+) mg/dL NEGATIVE UA UROBILINIOGEN DIPSTICK (test code=URO) NEGATIVE mg/dL NEGATIVE UA NITRITE DIPSTICK (test code=PEPITO) NEGATIVE NEGATIVE UA LEUKOCYTE ESTERASE W REFLEX (test code=LEUUR) 2+ NEGATIVE UA WBC (test code=WBCU) 20-30 #/HPF 0-5 UA RBC (test code=RBCU) >20 #/HPF 0-5 UA EPITHELIAL CELLS (test code=EPIU) FEW per HPF FEW UA BACTERIA (test code=BACU) FEW #/HPF NONE UA MUCUS (test code=MUCU) FEW #/LPF FEW UA YEAST (test code=YEASTU) MODERATE #/HPF NONE Urine Source? [facility] SMEAR EOSINOPHIL [id number] 02:06:00* Test Item Value Reference Range Comments UR SMEAR EOSINOPHIL COUNT (test code=EOSCTU) per HPF NONE SEEN Urine Source? [facility] PROTEIN [id number] 02:06:00* Test Item Value Reference Range Comments UR TOTAL PROTEIN (test code=PROTEU) mg/dL 0.0-15.0 UR ALBUMIN (test code=ALBEU) % UR EZRPJ-2-URYQIOZC (test code=A1GU) % UR UVJNY-0-CZVPCCQX (test code=A2GU) % UR BETA GLOBULIN (test code=BGU) % UR GAMMA GLOBULIN (test code=GGU) % MONOCLONAL SPIKE (test code=MONOSPIKE) % Not Observe UR PROTEIN 24HR (test code=DFFP58S) mg/24hr 40-150 UR VOLUME 24 HOUR (test code=VOL24) mL/24hrs [id number] Urine Source? [facility] NA,[id number] 02:06:00* Test Item Value Reference Range Comments UR NA,RANDOM (test code=GLEN) 62 mmol/L 20-110 Urine Source? [facility] CHLORIDE [id number] 02:06:00* Test Item Value Reference Range Comments UR CHLORIDE RANDOM (test code=CLU) 69 mEq/L Urine Source? [facility] PROTEIN/CREATININE [id number] 02:06:00* Test Item Value Reference Range Comments UR PROTEIN RANDOM (test code=PROTU) 115.3 mg/dL 0.0-11.9 Protein levels may be falsely elevated in patients withelevated level of aminoglycoside antibiotics in CSF and inhighly concentrated urine specimens. If false elevation issuspected, contact lab for alternated testing technique. UR CREATININE RANDOM (test code=CREATU) 74.0 mg/dL 30-125 PROTEIN/CREATININE RATIO (test code=P/CRATIO) 1.56 RATIO 0.0-0.20 Urine Source? [facility]INALYS[facility] [id number] 02:02:00* Test Item Value Reference Range Comments UA COLOR (test code=COLU) YELLOW YELLOW UA APPEARANCE (test code=APPU) SLIGHTLY CLOUDY CLEAR UA GLUCOSE DIPSTICK (test code=DGLUU) NEGATIVE mg/dL NEGATIVE UA BILIRUBIN DIPSTICK (test code=BILU) NEGATIVE mg/dL NEGATIVE UA KETONE DIPSTICK (test code=KETU) Negative mg/dL NEGATIVE UA SPECIFIC GRAVITY (test code=SGU) 1.013 1.001-1.035 UA BLOOD DIPSTICK (test code=MARIBETH) 3+ (Large) NEGATIVE UA PH DIPSTICK (test code=DAVID) 5.0 5.0-8.0 UA PROTEIN DIPSTICK (test code=PROU) 30 (1+) mg/dL NEGATIVE UA UROBILINIOGEN DIPSTICK (test code=URO) NEGATIVE mg/dL NEGATIVE UA NITRITE DIPSTICK (test code=PEPITO) NEGATIVE NEGATIVE UA LEUKOCYTE ESTERASE W REFLEX (test code=LEUUR) 2+ NEGATIVE UA WBC (test code=WBCU) 20-30 #/HPF 0-5 UA RBC (test code=RBCU) >20 #/HPF 0-5 UA EPITHELIAL CELLS (test code=EPIU) FEW per HPF FEW UA BACTERIA (test code=BACU) FEW #/HPF NONE UA MUCUS (test code=MUCU) FEW #/LPF FEW UA YEAST (test code=YEASTU) MODERATE #/HPF NONE Urine Source? [facility] SMEAR EOSINOPHIL [id number] 02:02:00* Test Item Value Reference Range Comments UR SMEAR EOSINOPHIL COUNT (test code=EOSCTU) per HPF NONE SEEN Urine Source? [facility] PROTEIN [id number] 02:02:00* Test Item Value Reference Range Comments UR TOTAL PROTEIN (test code=PROTEU) mg/dL 0.0-15.0 UR ALBUMIN (test code=ALBEU) % UR BBHHG-6-HZEWOFZY (test code=A1GU) % UR HPWML-0-SDLGCKYY (test code=A2GU) % UR BETA GLOBULIN (test code=BGU) % UR GAMMA GLOBULIN (test code=GGU) % MONOCLONAL SPIKE (test code=MONOSPIKE) % Not Observe UR PROTEIN 24HR (test code=GMAX23S) mg/24hr 40-150 UR VOLUME 24 HOUR (test code=VOL24) mL/24hrs [id number] Urine Source? [facility] NA,[id number] 02:02:00* Test Item Value Reference Range Comments UR NA,RANDOM (test code=GLEN) 62 mmol/L 20-110 Urine Source? [facility] CHLORIDE [id number] 02:02:00* Test Item Value Reference Range Comments UR CHLORIDE RANDOM (test code=CLU) 69 mEq/L Urine Source? [facility] PROTEIN/CREATININE [id number] 02:02:00* Test Item Value Reference Range Comments UR PROTEIN RANDOM (test code=PROTU) 115.3 mg/dL 0.0-11.9 Protein levels may be falsely elevated in patients withelevated level of aminoglycoside antibiotics in CSF and inhighly concentrated urine specimens. If false elevation issuspected, contact lab for alternated testing technique. UR CREATININE RANDOM (test code=CREATU) mg/dL 30-125 PROTEIN/CREATININE RATIO (test code=P/CRATIO) RATIO 0.0-0.20 Urine Source? [facility]INALYSIS [id number] 01:58:00* Test Item Value Reference Range Comments UA COLOR (test code=COLU) YELLOW YELLOW UA APPEARANCE (test code=APPU) SLIGHTLY CLOUDY CLEAR UA GLUCOSE DIPSTICK (test code=DGLUU) NEGATIVE mg/dL NEGATIVE UA BILIRUBIN DIPSTICK (test code=BILU) NEGATIVE mg/dL NEGATIVE UA KETONE DIPSTICK (test code=KETU) Negative mg/dL NEGATIVE UA SPECIFIC GRAVITY (test code=SGU) 1.013 1.001-1.035 UA BLOOD DIPSTICK (test code=MARIBETH) 3+ (Large) NEGATIVE UA PH DIPSTICK (test code=DAVID) 5.0 5.0-8.0 UA PROTEIN DIPSTICK (test code=PROU) 30 (1+) mg/dL NEGATIVE UA UROBILINIOGEN DIPSTICK (test code=URO) NEGATIVE mg/dL NEGATIVE UA NITRITE DIPSTICK (test code=PEPITO) NEGATIVE NEGATIVE UA LEUKOCYTE ESTERASE W REFLEX (test code=LEUUR) 2+ NEGATIVE UA WBC (test code=WBCU) 20-30 #/HPF 0-5 UA RBC (test code=RBCU) >20 #/HPF 0-5 UA EPITHELIAL CELLS (test code=EPIU) FEW per HPF FEW UA BACTERIA (test code=BACU) FEW #/HPF NONE UA MUCUS (test code=MUCU) FEW #/LPF FEW UA YEAST (test code=YEASTU) MODERATE #/HPF NONE Urine Source? [facility] SMEAR EOSINOPHIL [id number] 01:58:00* Test Item Value Reference Range Comments UR SMEAR EOSINOPHIL COUNT (test code=EOSCTU) per HPF NONE SEEN Urine Source? [facility] PROTEIN [id number] 01:58:00* Test Item Value Reference Range Comments UR TOTAL PROTEIN (test code=PROTEU) mg/dL 0.0-15.0 UR ALBUMIN (test code=ALBEU) % UR DGDXE-6-BAPOMLYI (test code=A1GU) % UR NLMPD-0-DFAQIKFC (test code=A2GU) % UR BETA GLOBULIN (test code=BGU) % UR GAMMA GLOBULIN (test code=GGU) % MONOCLONAL SPIKE (test code=MONOSPIKE) % Not Observe UR PROTEIN 24HR (test code=TLRC74D) mg/24hr 40-150 UR VOLUME 24 HOUR (test code=VOL24) mL/24hrs [id number] Urine Source? [facility] NA,[id number] 01:58:00* Test Item Value Reference Range Comments UR NA,RANDOM (test code=GLEN) mmol/L 20-110 Urine Source? [facility] CHLORIDE [id number] 01:58:00* Test Item Value Reference Range Comments UR CHLORIDE RANDOM (test code=CLU) mEq/L Urine Source? [facility] PROTEIN/CREATININE [id number] 01:58:00* Test Item Value Reference Range Comments UR PROTEIN RANDOM (test code=PROTU) mg/dL 0.0-11.9 UR CREATININE RANDOM (test code=CREATU) mg/dL 30-125 PROTEIN/CREATININE RATIO (test code=P/CRATIO) RATIO 0.0-0.20 Urine Source? [facility] HIV 1 23:55:00* Test Item Value Reference Range Comments AB HIV 1 2 (test code=RQO02WE) Nonreactive NonReactive It is recognized that currently available assays for thedetection of antibodies to HIV-1 and/or HIV-2 may notdetect all infected individuals. A negative test result doesnot exclude the possibility of exposure to or infection withHIV. HIV antibodies may be undetectable in some stages ofthe infection and in some clinical conditions. TOTAL [id number] 15:11:00* Test Item Value Reference Range Comments TOTAL T3 (test code=T3) T4 [id number] 15:11:00* Test Item Value Reference Range Comments T4 FREE (test code=T4F) 0.60 ng/dL 0.76-1.46 CBC W/AUTO [id number] 14:49:00* Test Item Value Reference Range Comments WHITE BLOOD CELL (test code=WBC) 7.8 K/mm3 4.5-12.5 RED BLOOD CELL (test code=RBC) 2.67 mill/mm3 4.0-5.8 HEMOGLOBIN (test code=HGB) 8.3 gram/dL 13.0-17.5 HEMATOCRIT (test code=HCT) 26.2 % 42.0-52.0 MEAN CELL VOLUME (test code=MCV) 98.1 fL 80-98 MEAN CELL HGB (test code=MCH) 31.1 picogram 27.0-33.0 MEAN CELL HGB CONCETRATION (test code=MCHC) 31.7 gram/dL 33.0-36.0 RED CELL DISTRIBUTION WIDTH (test code=RDW) 14.1 % 11.6-16.2 RED CELL DISTRIBUTION WIDTH SD (test code=RDW-SD) 50.1 fL 37.0-51.0 PLATELET COUNT (test code=PLT) 80 K/mm3 150-450 MEAN PLATELET VOLUME (test code=MPV) 10.7 fL 6.7-11.0 NEUTROPHIL % (test code=NT%) 49.2 % 39.0-69.0 IMMATURE GRANULOCYTE % (test code=IG%) 1.5 % 0.0-5.0 LYMPHOCYTE % (test code=LY%) 29.4 % 25.0-55.0 MONOCYTE % (test code=MO%) 10.9 % 0.0-10.0 EOSINOPHIL % (test code=EO%) 8.5 % 0.0-5.0 BASOPHIL % (test code=BA%) 0.5 % 0.0-1.0 NUCLEATED RBC % (test code=NRBC%) 0.0 % 0-0 NEUTROPHIL # (test code=NT#) 3.83 K/mm3 1.8-7.7 IMMATURE GRANULOCYTE # (test code=IG#) 0.12 x10 3/uL 0-0.03 LYMPHOCYTE # (test code=LY#) 2.29 K/mm3 1.0-5.0 MONOCYTE # (test code=MO#) 0.85 K/mm3 0-0.8 EOSINOPHIL # (test code=EO#) 0.66 K/mm3 0.0-0.5 BASOPHIL # (test code=BA#) 0.04 K/mm3 0.0-0.2 NUCLEATED RBC # (test code=NRBC#) 0.00 K/mm3 0.0-0.1 MANUAL DIFF REQUIRED (test code=MDIFF) NO, ONLY SCAN NEEDED DIFFERENTIAL [id number] 14:49:00* Test Item Value Reference Range Comments STAIN ACCEPTABILITY (test code=STN ACCEPTABLE) STAIN ACCEPTABLE POLYCHROMASIA (test code=POLC) 1+ HYPOCHROMIA (test code=HYPO) 1+ POIKILOCYTOSIS (test code=POIK) 1+ ANISOCYTOSIS (test code=ANISO) 1+ PLATELET ESTIMATE (test code=PLTEST) DECREASED PLATELET MORPHOLOGY (test code=PLTMORPH) NORMAL CBC W/AUTO [id number] 14:15:00* Test Item Value Reference Range Comments WHITE BLOOD CELL (test code=WBC) 7.8 K/mm3 4.5-12.5 RED BLOOD CELL (test code=RBC) 2.67 mill/mm3 4.0-5.8 HEMOGLOBIN (test code=HGB) 8.3 gram/dL 13.0-17.5 HEMATOCRIT (test code=HCT) 26.2 % 42.0-52.0 MEAN CELL VOLUME (test code=MCV) 98.1 fL 80-98 MEAN CELL HGB (test code=MCH) 31.1 picogram 27.0-33.0 MEAN CELL HGB CONCETRATION (test code=MCHC) 31.7 gram/dL 33.0-36.0 RED CELL DISTRIBUTION WIDTH (test code=RDW) 14.1 % 11.6-16.2 RED CELL DISTRIBUTION WIDTH SD (test code=RDW-SD) 50.1 fL 37.0-51.0 PLATELET COUNT (test code=PLT) 80 K/mm3 150-450 MEAN PLATELET VOLUME (test code=MPV) 10.7 fL 6.7-11.0 NEUTROPHIL % (test code=NT%) 49.2 % 39.0-69.0 IMMATURE GRANULOCYTE % (test code=IG%) 1.5 % 0.0-5.0 LYMPHOCYTE % (test code=LY%) 29.4 % 25.0-55.0 MONOCYTE % (test code=MO%) 10.9 % 0.0-10.0 EOSINOPHIL % (test code=EO%) 8.5 % 0.0-5.0 BASOPHIL % (test code=BA%) 0.5 % 0.0-1.0 NUCLEATED RBC % (test code=NRBC%) 0.0 % 0-0 NEUTROPHIL # (test code=NT#) 3.83 K/mm3 1.8-7.7 IMMATURE GRANULOCYTE # (test code=IG#) 0.12 x10 3/uL 0-0.03 LYMPHOCYTE # (test code=LY#) 2.29 K/mm3 1.0-5.0 MONOCYTE # (test code=MO#) 0.85 K/mm3 0-0.8 EOSINOPHIL # (test code=EO#) 0.66 K/mm3 0.0-0.5 BASOPHIL # (test code=BA#) 0.04 K/mm3 0.0-0.2 NUCLEATED RBC # (test code=NRBC#) 0.00 K/mm3 0.0-0.1 MANUAL DIFF REQUIRED (test code=MDIFF) NO, ONLY SCAN NEEDED DIFFERENTIAL [id number] 14:15:00* Test Item Value Reference Range Comments STAIN ACCEPTABILITY (test code=STN ACCEPTABLE) STAIN ACCEPTABLE POLYCHROMASIA (test code=POLC) 1+ HYPOCHROMIA (test code=HYPO) 1+ POIKILOCYTOSIS (test code=POIK) 1+ ANISOCYTOSIS (test code=ANISO) 1+ MORPHOLOGY COMMENT (test code=MOC) PLATELET ESTIMATE (test code=PLTEST) DECREASED PLATELET MORPHOLOGY (test code=PLTMORPH) NORMAL [id number] 10:23:00* Test Item Value Reference Range Comments TROPONIN-I (test code=TROPI) 0.091 ng/mL 0-0.045 COMMENTS TO EQUINE VET: COLLECT 3 HOURS AFTER PREVIOUS SAMPLEBASIC METABOLIC [id number] 10:09:00* Test Item Value Reference Range Comments SODIUM (test code=NA) 155 mmol/L 136-145 POTASSIUM (test code=K) 3.7 mmol/L 3.5-5.1 CHLORIDE (test code=CL) 123.0 mmol/L 98-107 CARBON DIOXIDE (test code=CO2) 23.0 mmol/L 21-32 ANION GAP (test code=GAP) 12.7 10-20 GLUCOSE (test code=GLU) 83 mg/dL 74-106 BLOOD UREA NITROGEN (test code=BUN) 44 mg/dL 7-18 GLOMERULAR FILTRATION RATE (test code=GFR) 16 mL/min >=60 Estimated GFR by using Modified MDRD formula.Chronic kidney disease is defined as either kidney damageor GFR <60 mL/min/1.73 m2 for >3 months. CREATININE (test code=CREAT) 3.90 mg/dL 0.7-1.3 BUN/CREATININE RATIO (test code=BUN/CREA) 11.3 10-20 CALCIUM (test code=CA) 7.4 mg/dL 8.5-10.1 FE W/TOTAL IRON BINDING [id number] 10:09:00* Test Item Value Reference Range Comments SERUM IRON (test code=IRON) 83 ug/dL 50-175 TOTAL IRON BINDING CAPACITY (test code=TIBC) 79 mcg/dL 250-450 IRON SATURATION (test code=FESAT) 105.06 % 13-45 VITAMIN [id number] 10:09:00* Test Item Value Reference Range Comments VITAMIN B12 (test code=VITB12) 1908 pg/mL 193-986 FOLIC [id number] 10:09:00* Test Item Value Reference Range Comments FOLIC ACID (test code=FOL) 23.7 ng/mL 3.10-17.50 THYROID STIMULATING [id number] 10:09:00* Test Item Value Reference Range Comments THYROID STIMULATING HORMONE (test code=TSH) 10.700 uIU/mL 0.36-3.74 TSH REFERENCE RANGES: EUTHYROID: 0.35 - 4.3 mIU/mL HYPO : > 5.5 mIU/mL HYPER : < 0.35 mIU/mL CBC W/AUTO [id number] 09:31:00* Test Item Value Reference Range Comments WHITE BLOOD CELL (test code=WBC) 7.8 K/mm3 4.5-12.5 RED BLOOD CELL (test code=RBC) 2.67 mill/mm3 4.0-5.8 HEMOGLOBIN (test code=HGB) 8.3 gram/dL 13.0-17.5 HEMATOCRIT (test code=HCT) 26.2 % 42.0-52.0 MEAN CELL VOLUME (test code=MCV) 98.1 fL 80-98 MEAN CELL HGB (test code=MCH) 31.1 picogram 27.0-33.0 MEAN CELL HGB CONCETRATION (test code=MCHC) 31.7 gram/dL 33.0-36.0 RED CELL DISTRIBUTION WIDTH (test code=RDW) 14.1 % 11.6-16.2 RED CELL DISTRIBUTION WIDTH SD (test code=RDW-SD) 50.1 fL 37.0-51.0 PLATELET COUNT (test code=PLT) 80 K/mm3 150-450 MEAN PLATELET VOLUME (test code=MPV) 10.7 fL 6.7-11.0 NEUTROPHIL % (test code=NT%) 49.2 % 39.0-69.0 IMMATURE GRANULOCYTE % (test code=IG%) 1.5 % 0.0-5.0 LYMPHOCYTE % (test code=LY%) 29.4 % 25.0-55.0 MONOCYTE % (test code=MO%) 10.9 % 0.0-10.0 EOSINOPHIL % (test code=EO%) 8.5 % 0.0-5.0 BASOPHIL % (test code=BA%) 0.5 % 0.0-1.0 NUCLEATED RBC % (test code=NRBC%) 0.0 % 0-0 NEUTROPHIL # (test code=NT#) 3.83 K/mm3 1.8-7.7 IMMATURE GRANULOCYTE # (test code=IG#) 0.12 x10 3/uL 0-0.03 LYMPHOCYTE # (test code=LY#) 2.29 K/mm3 1.0-5.0 MONOCYTE # (test code=MO#) 0.85 K/mm3 0-0.8 EOSINOPHIL # (test code=EO#) 0.66 K/mm3 0.0-0.5 BASOPHIL # (test code=BA#) 0.04 K/mm3 0.0-0.2 NUCLEATED RBC # (test code=NRBC#) 0.00 K/mm3 0.0-0.1 MANUAL DIFF REQUIRED (test code=MDIFF) NO, ONLY SCAN NEEDED DIFFERENTIAL [id number] 09:31:00* Test Item Value Reference Range Comments STAIN ACCEPTABILITY (test code=STN ACCEPTABLE) CABOT RINGS (test code=CAB) MORPHOLOGY COMMENT (test code=MOC) PLATELET ESTIMATE (test code=PLTEST) PLATELET MORPHOLOGY (test code=PLTMORPH) CBC W/AUTO [id number] 09:31:00* Test Item Value Reference Range Comments WHITE BLOOD CELL (test code=WBC) 7.8 K/mm3 4.5-12.5 RED BLOOD CELL (test code=RBC) 2.67 mill/mm3 4.0-5.8 HEMOGLOBIN (test code=HGB) 8.3 gram/dL 13.0-17.5 HEMATOCRIT (test code=HCT) 26.2 % 42.0-52.0 MEAN CELL VOLUME (test code=MCV) 98.1 fL 80-98 MEAN CELL HGB (test code=MCH) 31.1 picogram 27.0-33.0 MEAN CELL HGB CONCETRATION (test code=MCHC) 31.7 gram/dL 33.0-36.0 RED CELL DISTRIBUTION WIDTH (test code=RDW) 14.1 % 11.6-16.2 RED CELL DISTRIBUTION WIDTH SD (test code=RDW-SD) 50.1 fL 37.0-51.0 PLATELET COUNT (test code=PLT) 80 K/mm3 150-450 MEAN PLATELET VOLUME (test code=MPV) 10.7 fL 6.7-11.0 NEUTROPHIL % (test code=NT%) 49.2 % 39.0-69.0 IMMATURE GRANULOCYTE % (test code=IG%) 1.5 % 0.0-5.0 LYMPHOCYTE % (test code=LY%) 29.4 % 25.0-55.0 MONOCYTE % (test code=MO%) 10.9 % 0.0-10.0 EOSINOPHIL % (test code=EO%) 8.5 % 0.0-5.0 BASOPHIL % (test code=BA%) 0.5 % 0.0-1.0 NUCLEATED RBC % (test code=NRBC%) 0.0 % 0-0 NEUTROPHIL # (test code=NT#) 3.83 K/mm3 1.8-7.7 IMMATURE GRANULOCYTE # (test code=IG#) 0.12 x10 3/uL 0-0.03 LYMPHOCYTE # (test code=LY#) 2.29 K/mm3 1.0-5.0 MONOCYTE # (test code=MO#) 0.85 K/mm3 0-0.8 EOSINOPHIL # (test code=EO#) 0.66 K/mm3 0.0-0.5 BASOPHIL # (test code=BA#) 0.04 K/mm3 0.0-0.2 NUCLEATED RBC # (test code=NRBC#) 0.00 K/mm3 0.0-0.1 MANUAL DIFF REQUIRED (test code=MDIFF) NO, ONLY SCAN NEEDED DIFFERENTIAL [id number] 09:31:00* Test Item Value Reference Range Comments STAIN ACCEPTABILITY (test code=STN ACCEPTABLE) CABOT RINGS (test code=CAB) MORPHOLOGY COMMENT (test code=MOC) PLATELET ESTIMATE (test code=PLTEST) PLATELET MORPHOLOGY (test code=PLTMORPH) CBC W/AUTO [id number] 09:31:00* Test Item Value Reference Range Comments WHITE BLOOD CELL (test code=WBC) 7.8 K/mm3 4.5-12.5 RED BLOOD CELL (test code=RBC) 2.67 mill/mm3 4.0-5.8 HEMOGLOBIN (test code=HGB) 8.3 gram/dL 13.0-17.5 HEMATOCRIT (test code=HCT) 26.2 % 42.0-52.0 MEAN CELL VOLUME (test code=MCV) 98.1 fL 80-98 MEAN CELL HGB (test code=MCH) 31.1 picogram 27.0-33.0 MEAN CELL HGB CONCETRATION (test code=MCHC) 31.7 gram/dL 33.0-36.0 RED CELL DISTRIBUTION WIDTH (test code=RDW) 14.1 % 11.6-16.2 RED CELL DISTRIBUTION WIDTH SD (test code=RDW-SD) 50.1 fL 37.0-51.0 PLATELET COUNT (test code=PLT) 80 K/mm3 150-450 MEAN PLATELET VOLUME (test code=MPV) 10.7 fL 6.7-11.0 NEUTROPHIL % (test code=NT%) 49.2 % 39.0-69.0 IMMATURE GRANULOCYTE % (test code=IG%) 1.5 % 0.0-5.0 LYMPHOCYTE % (test code=LY%) 29.4 % 25.0-55.0 MONOCYTE % (test code=MO%) 10.9 % 0.0-10.0 EOSINOPHIL % (test code=EO%) 8.5 % 0.0-5.0 BASOPHIL % (test code=BA%) 0.5 % 0.0-1.0 NUCLEATED RBC % (test code=NRBC%) 0.0 % 0-0 NEUTROPHIL # (test code=NT#) 3.83 K/mm3 1.8-7.7 IMMATURE GRANULOCYTE # (test code=IG#) 0.12 x10 3/uL 0-0.03 LYMPHOCYTE # (test code=LY#) 2.29 K/mm3 1.0-5.0 MONOCYTE # (test code=MO#) 0.85 K/mm3 0-0.8 EOSINOPHIL # (test code=EO#) 0.66 K/mm3 0.0-0.5 BASOPHIL # (test code=BA#) 0.04 K/mm3 0.0-0.2 NUCLEATED RBC # (test code=NRBC#) 0.00 K/mm3 0.0-0.1 MANUAL DIFF REQUIRED (test code=MDIFF) NO, ONLY SCAN NEEDED DIFFERENTIAL [id number] 09:31:00* Test Item Value Reference Range Comments STAIN ACCEPTABILITY (test code=STN ACCEPTABLE) MORPHOLOGY COMMENT (test code=MOC) PLATELET ESTIMATE (test code=PLTEST) PLATELET MORPHOLOGY (test code=PLTMORPH) CBC W/AUTO [id number] 09:31:00* Test Item Value Reference Range Comments WHITE BLOOD CELL (test code=WBC) 7.8 K/mm3 4.5-12.5 RED BLOOD CELL (test code=RBC) 2.67 mill/mm3 4.0-5.8 HEMOGLOBIN (test code=HGB) 8.3 gram/dL 13.0-17.5 HEMATOCRIT (test code=HCT) 26.2 % 42.0-52.0 MEAN CELL VOLUME (test code=MCV) 98.1 fL 80-98 MEAN CELL HGB (test code=MCH) 31.1 picogram 27.0-33.0 MEAN CELL HGB CONCETRATION (test code=MCHC) 31.7 gram/dL 33.0-36.0 RED CELL DISTRIBUTION WIDTH (test code=RDW) 14.1 % 11.6-16.2 RED CELL DISTRIBUTION WIDTH SD (test code=RDW-SD) 50.1 fL 37.0-51.0 PLATELET COUNT (test code=PLT) 80 K/mm3 150-450 MEAN PLATELET VOLUME (test code=MPV) 10.7 fL 6.7-11.0 NEUTROPHIL % (test code=NT%) 49.2 % 39.0-69.0 IMMATURE GRANULOCYTE % (test code=IG%) 1.5 % 0.0-5.0 LYMPHOCYTE % (test code=LY%) 29.4 % 25.0-55.0 MONOCYTE % (test code=MO%) 10.9 % 0.0-10.0 EOSINOPHIL % (test code=EO%) 8.5 % 0.0-5.0 BASOPHIL % (test code=BA%) 0.5 % 0.0-1.0 NUCLEATED RBC % (test code=NRBC%) 0.0 % 0-0 NEUTROPHIL # (test code=NT#) 3.83 K/mm3 1.8-7.7 IMMATURE GRANULOCYTE # (test code=IG#) 0.12 x10 3/uL 0-0.03 LYMPHOCYTE # (test code=LY#) 2.29 K/mm3 1.0-5.0 MONOCYTE # (test code=MO#) 0.85 K/mm3 0-0.8 EOSINOPHIL # (test code=EO#) 0.66 K/mm3 0.0-0.5 BASOPHIL # (test code=BA#) 0.04 K/mm3 0.0-0.2 NUCLEATED RBC # (test code=NRBC#) 0.00 K/mm3 0.0-0.1 MANUAL DIFF REQUIRED (test code=MDIFF) NO, ONLY SCAN NEEDED DIFFERENTIAL [id number] 09:31:00* Test Item Value Reference Range Comments STAIN ACCEPTABILITY (test code=STN ACCEPTABLE) CABOT RINGS (test code=CAB) MORPHOLOGY COMMENT (test code=MOC) PLATELET ESTIMATE (test code=PLTEST) PLATELET MORPHOLOGY (test code=PLTMORPH) BASIC METABOLIC [id number] 09:26:00* Test Item Value Reference Range Comments SODIUM (test code=NA) 155 mmol/L 136-145 POTASSIUM (test code=K) 3.7 mmol/L 3.5-5.1 CHLORIDE (test code=CL) 123.0 mmol/L 98-107 CARBON DIOXIDE (test code=CO2) mmol/L 21-32 ANION GAP (test code=GAP) 10-20 GLUCOSE (test code=GLU) mg/dL 74-106 BLOOD UREA NITROGEN (test code=BUN) mg/dL 7-18 GLOMERULAR FILTRATION RATE (test code=GFR) mL/min >=60 CREATININE (test code=CREAT) mg/dL 0.7-1.3 BUN/CREATININE RATIO (test code=BUN/CREA) 10-20 CALCIUM (test code=CA) mg/dL 8.5-10.1 FE W/TOTAL IRON BINDING CAP.[id number] 09:26:00* Test Item Value Reference Range Comments SERUM IRON (test code=IRON) ug/dL 50-175 TOTAL IRON BINDING CAPACITY (test code=TIBC) mcg/dL 250-450 IRON SATURATION (test code=FESAT) % 13-45 VITAMIN [id number] 09:26:00* Test Item Value Reference Range Comments VITAMIN B12 (test code=VITB12) pg/mL 193-986 FOLIC [id number] 09:26:00* Test Item Value Reference Range Comments FOLIC ACID (test code=FOL) ng/mL 3.10-17.50 THYROID STIMULATING [id number] 09:26:00* Test Item Value Reference Range Comments THYROID STIMULATING HORMONE (test code=TSH) uIU/mL 0.36-3.74 [id number] 07:15:00* Test Item Value Reference Range Comments TROPONIN-I (test code=TROPI) 0.073 ng/mL 0-0.045 RESULT VERIFIED BY REPEAT ANALYSIS COMMENTS TO EQUINE VET: COLLECT 3 HOURS AFTER PREVIOUS SAMPLELACTIC [id number] 04:11:00* Test Item Value Reference Range Comments LACTIC ACID (test code=LACT) 1.7 mmol/L 0.4-1.9 LACTIC [id number] 00:57:00* Test Item Value Reference Range Comments LACTIC ACID (test code=LACT) 2.3 mmol/L 0.4-1.9 Results called to [id number] by LEODAN 09/04/18 0057Critical results verified and read back by Nurse? Y [id number] 23:47:00* Test Item Value Reference Range Comments AMMONIA (test code=AMM) 31 umol/L 11-32 POC LACTIC [id number] 23:05:00* Test Item Value Reference Range Comments POC LACTIC ACID (test code=POCLAC) 2.11 MMOL/L 0.4-2.2 URINALYSIS [id number] 22:37:00* Test Item Value Reference Range Comments UA COLOR (test code=COLU) YELLOW YELLOW UA APPEARANCE (test code=APPU) Cloudy CLEAR UA GLUCOSE DIPSTICK (test code=DGLUU) NEGATIVE mg/dL NEGATIVE UA BILIRUBIN DIPSTICK (test code=BILU) NEGATIVE mg/dL NEGATIVE UA KETONE DIPSTICK (test code=KETU) Negative mg/dL NEGATIVE UA SPECIFIC GRAVITY (test code=SGU) 1.011 1.001-1.035 UA BLOOD DIPSTICK (test code=MARIBETH) 3+ (Large) NEGATIVE UA PH DIPSTICK (test code=DAVID) 5.0 5.0-8.0 UA PROTEIN DIPSTICK (test code=PROU) 30 (1+) mg/dL NEGATIVE UA UROBILINIOGEN DIPSTICK (test code=URO) NEGATIVE mg/dL NEGATIVE UA NITRITE DIPSTICK (test code=PEPITO) NEGATIVE NEGATIVE UA LEUKOCYTE ESTERASE W REFLEX (test code=LEUUR) 3+ NEGATIVE UA WBC (test code=WBCU) >50 #/HPF 0-5 UA RBC (test code=RBCU) >20 #/HPF 0-5 UA WBC CLUMPS (test code=WBCUCL) 3-6 /HPF NONE UA EPITHELIAL CELLS (test code=EPIU) FEW per HPF FEW UA BACTERIA (test code=BACU) FEW #/HPF NONE UA YEAST (test code=YEASTU) FEW #/HPF NONE Urine Source? Clean CatchURINALYSIS [id number] 22:27:00* Test Item Value Reference Range Comments UA COLOR (test code=COLU) YELLOW YELLOW UA APPEARANCE (test code=APPU) Cloudy CLEAR UA GLUCOSE DIPSTICK (test code=DGLUU) NEGATIVE mg/dL NEGATIVE UA BILIRUBIN DIPSTICK (test code=BILU) NEGATIVE mg/dL NEGATIVE UA KETONE DIPSTICK (test code=KETU) Negative mg/dL NEGATIVE UA SPECIFIC GRAVITY (test code=SGU) 1.011 1.001-1.035 UA BLOOD DIPSTICK (test code=MARIBETH) 3+ (Large) NEGATIVE UA PH DIPSTICK (test code=DAVID) 5.0 5.0-8.0 UA PROTEIN DIPSTICK (test code=PROU) 30 (1+) mg/dL NEGATIVE UA UROBILINIOGEN DIPSTICK (test code=URO) NEGATIVE mg/dL NEGATIVE UA NITRITE DIPSTICK (test code=PEPITO) NEGATIVE NEGATIVE UA LEUKOCYTE ESTERASE W REFLEX (test code=LEUUR) 3+ NEGATIVE UA WBC (test code=WBCU) per HPF 0-5 Urine Source? Clean CatchBASIC METABOLIC [id number] 22:13:00* Test Item Value Reference Range Comments SODIUM (test code=NA) 152 mmol/L 136-145 POTASSIUM (test code=K) 4.1 mmol/L 3.5-5.1 CHLORIDE (test code=CL) 121.0 mmol/L 98-107 CARBON DIOXIDE (test code=CO2) 22.0 mmol/L 21-32 ANION GAP (test code=GAP) 13.1 10-20 GLUCOSE (test code=GLU) 95 mg/dL 74-106 BLOOD UREA NITROGEN (test code=BUN) 45 mg/dL 7-18 GLOMERULAR FILTRATION RATE (test code=GFR) 15 mL/min >=60 Estimated GFR by using Modified MDRD formula.Chronic kidney disease is defined as either kidney damageor GFR <60 mL/min/1.73 m2 for >3 months. CREATININE (test code=CREAT) 4.00 mg/dL 0.7-1.3 BUN/CREATININE RATIO (test code=BUN/CREA) 11.3 10-20 CALCIUM (test code=CA) 7.3 mg/dL 8.5-10.1 HEPATIC FUNCTION [id number] 22:13:00* Test Item Value Reference Range Comments TOTAL PROTEIN (test code=PROT) 5.7 gram/dL 6.4-8.2 ALBUMIN (test code=ALB) 1.0 g/dL 3.4-5.0 GLOBULIN (test code=GLOB) 4.7 gram/dL 2.7-4.2 ALBUMIN/GLOBULIN RATIO (test code=A/G) 0.2 0.75-1.50 BILIRUBIN TOTAL (test code=BILT) 3.30 mg/dL 0.0-1.0 BILIRUBIN DIRECT (test code=BILD) 1.59 mg/dL 0.0-0.20 SGOT/AST (test code=AST) 55 IUnit/L 15-37 SGPT/ALT (test code=ALT) 36 IUnit/L 12-78 ALKALINE PHOSPHATASE TOTAL (test code=ALKP) 87 IUnit/L 45-117 Note change in reference range due to change in reagent. [id number] 22:13:00* Test Item Value Reference Range Comments TROPONIN-I (test code=TROPI) 0.076 ng/mL 0-0.045 Results called to [id number] by 09/03/18 2212Critical results verified and read back by Nurse? Y - XR CHEST 1 [id number] 22:01:00 FAX: Ryan Charles MD [place]: St: PRE FAX: Stewart Beck MD [phone] Name: CHEYENNE MISHRA [facility] : 1955 Age/S: 62/M [address] [facility] Unit #: [id number] Loc: [place] [address] Phys: Stewart Beck MD Acct: [id number] Dis Date: Status: PRE ER PHONE #: [phone] Exam Date: 09/03/20182134 FAX #: [phone] Reason: cough EXAMS: CPT CODE: [id number] XR CHEST 1 V 86874 HISTORY: cough TECHNIQUE: AP chest x-ray COMPARISON: 08/07/18 FINDINGS: No airspace consolidation or pleural effusion. Normal heart size. Atherosclerotic vascular calcification of the thoracic aorta. Mediastinal silhouette is unremarkable. Visualized osseous structures are grossly intact. IMPRESSION: No radiographic evidence of acute cardiopulmonary process. at 2201 Reported and signed by: Cee Ramos D.O. CC: Ryan Posey; Stewart Beck MD Technologist: COREY CHAVEZ, RT(R); ARRON ELMORE RT (R) Trnksrd Date/Time/By: 09/03/2018 (2200) : By: [email or web address] Orig Print D/T: S: 09/03/2018 (2203) PAGE 1 Signed Report BASIC METABOLIC [id number] 21:58:00* Test Item Value Reference Range Comments SODIUM (test code=NA) 152 mmol/L 136-145 POTASSIUM (test code=K) 4.1 mmol/L 3.5-5.1 CHLORIDE (test code=CL) 121.0 mmol/L 98-107 CARBON DIOXIDE (test code=CO2) mmol/L 21-32 ANION GAP (test code=GAP) 10-20 GLUCOSE (test code=GLU) mg/dL 74-106 BLOOD UREA NITROGEN (test code=BUN) mg/dL 7-18 GLOMERULAR FILTRATION RATE (test code=GFR) mL/min >=60 CREATININE (test code=CREAT) mg/dL 0.7-1.3 BUN/CREATININE RATIO (test code=BUN/CREA) 10-20 CALCIUM (test code=CA) mg/dL 8.5-10.1 HEPATIC FUNCTION [id number] 21:58:00* Test Item Value Reference Range Comments TOTAL PROTEIN (test code=PROT) gram/dL 6.4-8.2 ALBUMIN (test code=ALB) g/dL 3.4-5.0 GLOBULIN (test code=GLOB) gram/dL 2.7-4.2 ALBUMIN/GLOBULIN RATIO (test code=A/G) 0.75-1.50 BILIRUBIN TOTAL (test code=BILT) mg/dL 0.0-1.0 BILIRUBIN DIRECT (test code=BILD) mg/dL 0.0-0.20 SGOT/AST (test code=AST) IUnit/L 15-37 SGPT/ALT (test code=ALT) IUnit/L 12-78 ALKALINE PHOSPHATASE TOTAL (test code=ALKP) IUnit/L 45-117 [id number] 21:58:00* Test Item Value Reference Range Comments TROPONIN-I (test code=TROPI) ng/mL 0-0.045 CBC W/O [id number] 21:45:00* Test Item Value Reference Range Comments WHITE BLOOD CELL (test code=WBC) 9.8 K/mm3 4.5-12.5 RED BLOOD CELL (test code=RBC) 2.75 mill/mm3 4.0-5.8 HEMOGLOBIN (test code=HGB) 8.6 gram/dL 13.0-17.5 HEMATOCRIT (test code=HCT) 27.3 % 42.0-52.0 MEAN CELL VOLUME (test code=MCV) 99.3 fL 80-98 MEAN CELL HGB (test code=MCH) 31.3 picogram 27.0-33.0 MEAN CELL HGB CONCETRATION (test code=MCHC) 31.5 gram/dL 33.0-36.0 RED CELL DISTRIBUTION WIDTH (test code=RDW) 14.0 % 11.6-16.2 PLATELET COUNT (test code=PLT) 87 K/mm3 150-450 MEAN PLATELET VOLUME (test code=MPV) 10.2 fL 6.7-11.0 [id number] 07:26:00* Test Item Value Reference Range Comments GLUBED (test code=GLUBED) 82 mg/dL 74-106 Performed by certified staple processing machine operator at [facility] [id number] 07:26:00* Test Item Value Reference Range Comments GLUBED (test code=GLUBED) 128 mg/dL 74-106 Performed by certified staple processing machine operator at [facility] [id number] 07:23:00* Test Item Value Reference Range Comments GLUBED (test code=GLUBED) 82 mg/dL 74-106 Performed by certified staple processing machine operator at [facility] [id number] 07:23:00* Test Item Value Reference Range Comments GLUBED (test code=GLUBED) 101 mg/dL 74-106 Performed by certified staple processing machine operator at [facility] [id number] 07:23:00* Test Item Value Reference Range Comments GLUBED (test code=GLUBED) 92 mg/dL 74-106 Performed by certified staple processing machine operator at [facility] [id number] 07:22:00* Test Item Value Reference Range Comments GLUBED (test code=GLUBED) 95 mg/dL 74-106 Performed by certified staple processing machine operator at [facility] COMPREHENSIVE METABOLIC [id number] 21:44:00* Test Item Value Reference Range Comments SODIUM (test code=NA) 146 mmol/L 136-145 POTASSIUM (test code=K) 4.0 mmol/L 3.5-5.1 CHLORIDE (test code=CL) 112.0 mmol/L 98-107 CARBON DIOXIDE (test code=CO2) 26.0 mmol/L 21-32 ANION GAP (test code=GAP) 12.0 10-20 GLUCOSE (test code=GLU) 168 mg/dL 74-106 BLOOD UREA NITROGEN (test code=BUN) 51 mg/dL 7-18 GLOMERULAR FILTRATION RATE (test code=GFR) 56 mL/min >=60 Estimated GFR by using Modified MDRD formula.Chronic kidney disease is defined as either kidney damageor GFR <60 mL/min/1.73 m2 for >3 months. CREATININE (test code=CREAT) 1.30 mg/dL 0.7-1.3 BUN/CREATININE RATIO (test code=BUN/CREA) 39.8 10-20 TOTAL PROTEIN (test code=PROT) 5.0 gram/dL 6.4-8.2 ALBUMIN (test code=ALB) 1.4 g/dL 3.4-5.0 GLOBULIN (test code=GLOB) 3.6 gram/dL 2.7-4.2 ALBUMIN/GLOBULIN RATIO (test code=A/G) 0.4 0.75-1.50 CALCIUM (test code=CA) 7.3 mg/dL 8.5-10.1 BILIRUBIN TOTAL (test code=BILT) 4.20 mg/dL 0.0-1.0 SGOT/AST (test code=AST) 64 IUnit/L 15-37 SGPT/ALT (test code=ALT) 23 IUnit/L 12-78 ALKALINE PHOSPHATASE TOTAL (test code=ALKP) 76 IUnit/L 45-117 Note change in reference range due to change in reagent. [id number] 21:44:00* Test Item Value Reference Range Comments LIPASE (test code=LIP) 831 U/L 73.0-393.0 COMPREHENSIVE METABOLIC [id number] 21:38:00* Test Item Value Reference Range Comments SODIUM (test code=NA) 146 mmol/L 136-145 POTASSIUM (test code=K) 4.0 mmol/L 3.5-5.1 CHLORIDE (test code=CL) 112.0 mmol/L 98-107 CARBON DIOXIDE (test code=CO2) mmol/L 21-32 ANION GAP (test code=GAP) 10-20 GLUCOSE (test code=GLU) mg/dL 74-106 BLOOD UREA NITROGEN (test code=BUN) mg/dL 7-18 GLOMERULAR FILTRATION RATE (test code=GFR) mL/min >=60 CREATININE (test code=CREAT) mg/dL 0.7-1.3 BUN/CREATININE RATIO (test code=BUN/CREA) 10-20 TOTAL PROTEIN (test code=PROT) gram/dL 6.4-8.2 ALBUMIN (test code=ALB) g/dL 3.4-5.0 GLOBULIN (test code=GLOB) gram/dL 2.7-4.2 ALBUMIN/GLOBULIN RATIO (test code=A/G) 0.75-1.50 CALCIUM (test code=CA) mg/dL 8.5-10.1 BILIRUBIN TOTAL (test code=BILT) mg/dL 0.0-1.0 SGOT/AST (test code=AST) IUnit/L 15-37 SGPT/ALT (test code=ALT) IUnit/L 12-78 ALKALINE PHOSPHATASE TOTAL (test code=ALKP) IUnit/L 45-117 [id number] 21:38:00* Test Item Value Reference Range Comments LIPASE (test code=LIP) U/L 73.0-393.0 CBC W/AUTO [id number] 21:24:00* Test Item Value Reference Range Comments WHITE BLOOD CELL (test code=WBC) 11.1 K/mm3 4.5-12.5 RED BLOOD CELL (test code=RBC) 2.59 mill/mm3 4.0-5.8 HEMOGLOBIN (test code=HGB) 8.8 gram/dL 13.0-17.5 HEMATOCRIT (test code=HCT) 27.5 % 42.0-52.0 MEAN CELL VOLUME (test code=MCV) 106.2 fL 80-98 MEAN CELL HGB (test code=MCH) 34.0 picogram 27.0-33.0 MEAN CELL HGB CONCETRATION (test code=MCHC) 32.0 gram/dL 33.0-36.0 RED CELL DISTRIBUTION WIDTH (test code=RDW) 15.9 % 11.6-16.2 RED CELL DISTRIBUTION WIDTH SD (test code=RDW-SD) 60.2 fL 37.0-51.0 PLATELET COUNT (test code=PLT) 147 K/mm3 150-450 MEAN PLATELET VOLUME (test code=MPV) 10.3 fL 6.7-11.0 NEUTROPHIL % (test code=NT%) 79.5 % 39.0-69.0 IMMATURE GRANULOCYTE % (test code=IG%) 0.8 % 0.0-5.0 LYMPHOCYTE % (test code=LY%) 9.1 % 25.0-55.0 MONOCYTE % (test code=MO%) 9.4 % 0.0-10.0 EOSINOPHIL % (test code=EO%) 0.7 % 0.0-5.0 BASOPHIL % (test code=BA%) 0.5 % 0.0-1.0 NUCLEATED RBC % (test code=NRBC%) 0.0 % 0-0 NEUTROPHIL # (test code=NT#) 8.79 K/mm3 1.8-7.7 IMMATURE GRANULOCYTE # (test code=IG#) 0.09 x10 3/uL 0-0.03 LYMPHOCYTE # (test code=LY#) 1.01 K/mm3 1.0-5.0 MONOCYTE # (test code=MO#) 1.04 K/mm3 0-0.8 EOSINOPHIL # (test code=EO#) 0.08 K/mm3 0.0-0.5 BASOPHIL # (test code=BA#) 0.05 K/mm3 0.0-0.2 NUCLEATED RBC # (test code=NRBC#) 0.00 K/mm3 0.0-0.1 MANUAL DIFF REQUIRED (test code=MDIFF) NO - CT ABD PELVIS W/O [id number] 21:01:00 Name: CHEYENNE MISRHA [facility] : 1955 Age/S: 62 / M [address] [facility] Unit #: [id number] Loc: [place] [address] Phys: Lakeisha Yan MD Acct: [id number] Dis Date: Status: REG ER PHONE #: [phone] Exam Date: 08/07/20182035 FAX #: [phone] Reason: fall, right flank pain EXAMS: CPT CODE: [id number] CT ABD PELVIS W/O CONT 72079 EXAM: CT of the abdomen and pelvis without contrast. TECHNIQUE AND FINDINGS: CT dose reduction protocol; 5 mm cuts through the abdomen and pelvis without contrast. Small liver with nodular contours. 2 cm cyst in the right lobe of the liver and subserosal 8 mm cyst anteriorly in the left lower lobe; no evidence of solid lesions. No biliary abnormalities; pancreas, spleen, adrenal glands and kidneys unremarkable; no evidence of renal stones; no hydronephrosis. No acute bowel abnormalities. Small amount of ascites near the liver and in the pelvis. Calcifications of the abdominal aorta and iliac arteries. Bone windows show no evidence of acute osseous trauma. IMPRESSION: 1. Small, cirrhotic liver and small hepatic cysts. 2. Small amount of ascites. 3. No acute abdom inal or pelvic abnormalities. at 2100 Reported and signed by: Mart Estevez M.D. CC: Lakeisha Yan MD Technologist:Lilliana Canada, RT(R)(CT) CTDI: DLP: Trnscb Date/Time: 2018 (2100) [email or web address] Orig Print D/T: S: 08/07/2018 (2104 ) CTDI: DLP: PAGE 1 Signed Report - CT CHEST W/O [id number] 20:58:00 Name: CHEYENNE MISHRA [facility] : 1955 Age/S: 62 / M [address] [facility] Unit #: [id number] Loc: [place] [address] Phys: Brad Yan MD Acct: [id number] Di s Date: Status: REG ER PHONE #: [phone] Exam Date: 08/07/20182035 FAX #: [phone] Reason: fall, right flank pain EXAMS: CPT CODE: [id number] CT CHEST W/O CONTRAST 89761 EXAM: CT of the chest wit hout contrast; INFORMATION: Right-sided chest pain after fall; TECHNIQUE AND FINDINGS: CT dose reduction protocol; 3.75 mm cuts through the chest without contrast. Lung windows show subtle patch y infiltrative changes in the left upper lobe; the remainder of the lungs is clear. There are small, partially organized bilateral pleural effusions . No pneumothorax. Cardiomediastinal structures are unremarkable exc ept for calcified plaques in the aortic arch. Calcified left hilar lymph node. Bone windows show a nondisplaced fracture of the anterior lateral aspect of the 7th rib on the right with callus formation. Fracture is not yet completely consolidated. No evidence of acute fractures. IMPRESSION: 1. Subtle, small left upper lobe infiltrate. 2. Small bilateral pleural effusions, partially organized. 3. Older but not yet completely consolidated fracture of the 7th rib on the right . No acute fractures. at 2057 Reported and signed by: Mart Estevez M.D. CC: Lakeisha Yan MD Technologist:Felix gallegos, RT(R)(CT) CTDI: DLP: Trnscb Date/Time: 08/07/2018 (2057 ) [email or web address] Orig Print D/T: S: 08/07/2018 (2100) CT DI: DLP: PAGE 1 Signed Report URINALYSIS [id number] 20:49:00* Test Item Value Reference Range Comments UA COLOR (test code=COLU) CALOS YELLOW UA APPEARANCE (test code=APPU) Cloudy CLEAR UA GLUCOSE DIPSTICK (test code=DGLUU) 50 (Trace) mg/dL NEGATIVE UA BILIRUBIN DIPSTICK (test code=BILU) NEGATIVE mg/dL NEGATIVE UA KETONE DIPSTICK (test code=KETU) Negative mg/dL NEGATIVE UA SPECIFIC GRAVITY (test code=SGU) 1.015 1.001-1.035 UA BLOOD DIPSTICK (test code=MARIBETH) 3+ (Large) NEGATIVE UA PH DIPSTICK (test code=DAVID) 5.0 5.0-8.0 UA PROTEIN DIPSTICK (test code=PROU) 100 (2+) mg/dL NEGATIVE UA UROBILINIOGEN DIPSTICK (test code=URO) mg/dL 0.0-0.2 UA NITRITE DIPSTICK (test code=PEPITO) NEGATIVE NEGATIVE UA LEUKOCYTE ESTERASE W REFLEX (test code=LEUUR) 3+ NEGATIVE UA WBC (test code=WBCU) >50 #/HPF 0-5 UA RBC (test code=RBCU) >20 #/HPF 0-5 UA WBC CLUMPS (test code=WBCUCL) >10 /HPF NONE UA BACTERIA (test code=BACU) FEW #/HPF NONE UA MUCUS (test code=MUCU) FEW #/LPF FEW UA YEAST (test code=YEASTU) MANY #/HPF NONE Urine Source? CatheterURINALYSIS [id number] 20:49:00* Test Item Value Reference Range Comments UA COLOR (test code=COLU) CALOS YELLOW UA APPEARANCE (test code=APPU) Cloudy CLEAR UA GLUCOSE DIPSTICK (test code=DGLUU) 50 (Trace) mg/dL NEGATIVE UA BILIRUBIN DIPSTICK (test code=BILU) NEGATIVE mg/dL NEGATIVE UA KETONE DIPSTICK (test code=KETU) Negative mg/dL NEGATIVE UA SPECIFIC GRAVITY (test code=SGU) 1.015 1.001-1.035 UA BLOOD DIPSTICK (test code=MARIBETH) 3+ (Large) NEGATIVE UA PH DIPSTICK (test code=DAVID) 5.0 5.0-8.0 UA PROTEIN DIPSTICK (test code=PROU) 100 (2+) mg/dL NEGATIVE UA UROBILINIOGEN DIPSTICK (test code=URO) 1.0-2.0 (1+) mg/dL NEGATIVE UA NITRITE DIPSTICK (test code=PEPITO) NEGATIVE NEGATIVE UA LEUKOCYTE ESTERASE W REFLEX (test code=LEUUR) 3+ NEGATIVE UA WBC (test code=WBCU) >50 #/HPF 0-5 UA RBC (test code=RBCU) >20 #/HPF 0-5 UA WBC CLUMPS (test code=WBCUCL) >10 /HPF NONE UA BACTERIA (test code=BACU) FEW #/HPF NONE UA MUCUS (test code=MUCU) FEW #/LPF FEW UA YEAST (test code=YEASTU) MANY #/HPF NONE Urine Source? CatheterURINALYSIS [id number] 20:36:00* Test Item Value Reference Range Comments UA COLOR (test code=COLU) CALOS YELLOW UA APPEARANCE (test code=APPU) Cloudy CLEAR UA GLUCOSE DIPSTICK (test code=DGLUU) 50 (Trace) mg/dL NEGATIVE UA BILIRUBIN DIPSTICK (test code=BILU) NEGATIVE mg/dL NEGATIVE UA KETONE DIPSTICK (test code=KETU) Negative mg/dL NEGATIVE UA SPECIFIC GRAVITY (test code=SGU) 1.015 1.001-1.035 UA BLOOD DIPSTICK (test code=MARIBETH) 3+ (Large) NEGATIVE UA PH DIPSTICK (test code=DAVID) 5.0 5.0-8.0 UA PROTEIN DIPSTICK (test code=PROU) 100 (2+) mg/dL NEGATIVE UA UROBILINIOGEN DIPSTICK (test code=URO) mg/dL 0.0-0.2 UA NITRITE DIPSTICK (test code=PEPITO) NEGATIVE NEGATIVE UA LEUKOCYTE ESTERASE W REFLEX (test code=LEUUR) 3+ NEGATIVE UA WBC (test code=WBCU) per HPF 0-5 Urine Source? Catheter- XR FEMUR MIN 2 VWS [id number] 20:07:00 FAX: Lakeisha Izquierdo [phone] [place]: St: REG Name: CHEYENNE WONG [facility] : [birth year] Age/S: 62/M [address] [facility] Unit #: [id number] Loc: [place] [address] Phys: Lakeisha Yan MD Acct: [id number] Dis Date: Status: REG ER PHONE #: [phone] Exam Date: 08/07/20181951 FAX #: [phone] Reason: fall, right hip pain EXAMS: CPT CODE: [id number] XR FEMUR MIN [address] [place] [address] EXAM: Pelvis, one view, right hip, 2 views and right femur, 4 views; INFORMATION: Trauma; pain after fall; FINDINGS: Normal shape and structure of the imaged barry vanessa; no evidence of fracture or dislocation; no soft tissue abnorma lities. IMPRESSION: No evidence of acute osseous trauma or other pathological changes. No radiopaque foreign body. at 2006 Reported and signed by: Mart Estevez M.D. CC: Lakeisha Yan MD Technologist: Nelson Nguyen RT(R); SHIN BUSCH RT(R) Trnscrd Date/Time/By: 08/07/2018 (2006) : By: RoyaGRW Orig Print D/T: S: 08/07/2018 (2009) PAGE 1 Signed Report - XR HIP W/PEL UNI 2+V [id number] 20:07:00 FAX: Lakeisha Izquierdo [phone] [place]: St: REG Name: CHEYENNE WONG [facility] : [birth year] Age/S: 62/M [address] [facility] Unit #: [id number] Loc: [place] [address] Phys: Lakeisha Yan MD Acct: [id number] Dis Date: Status: REG ER PHONE #: [phone] Exam Date: 08/07/20181951 FAX #: [phone] Reason: fall, R hip pain EXAMS: CPT CODE: [id number] XR HIP W/PEL UNI 2+[place] [address] EXAM: Pelvis, one view, right hip, 2 views and right femur, 4 views; INFORMATION: Trauma; pain after fall; FINDINGS: Normal shape and structure of the imaged barry vanessa; no evidence of fracture or dislocation; no soft tissue abnorma lities. IMPRESSION: No evidence of acute osseous trauma or other pathological changes. No radiopaque foreign body. at 2006 Reported and signed by: Mart Estevez M.D. CC: Lakeisha Yan MD Technologist: Nelson Nguyen RT(R); SHIN BUSCH RT(R) Trnscrd Date/Time/By: 08/07/2018 (2006) : By: RoyaGRW Orig Print D/T: S: 08/07/2018 (2009) PAGE 1 Signed Report - XR CHEST 1 V 2018-08-07 20:05:00 FAX: Lakeisha Izquierdo [phone] [place]: St: REG Name: CHEYENNE WONG [facility] : [birth year] 54 Age/S: 62/M [address] [facility] Unit #: [id number] Loc: [place] [address] Phys: Lakeisha Yan MD Acct: [id number] Dis Date: Status: REG ER PHONE #: [phone] Exam Date: 08/07/20181951 FAX #: [phone] Reason: fall EXAMS: CPT CODE: [id number] XR CHEST 1 V 58437 EXAM: Chest x-ray, one view; INFORMATION: Status post fall; FINDINGS: Lungs are clear; no infiltrates, no edema; no effusions, no pneumothorax. Aort ic calcification; the heart is slightly enlarged. No major change compared with a study from August 03, 2018, except for interim removal of a tempo rary hemodialysis catheter. IMPRESSION: 1. Mild c ardiomegaly. 2. No acute cardiothoracic abnormalities. at 2005 Reported and signed by: Mart Estevez M.D. CC: Lakeisha Yan MD Technologist: Nelson Nguyen RT(R); SHIN BUSCH RT(R) Trnscrd Date/Time/By: 08/07/2018 (2004) : By: RoyaGRW Orig Print D/T: S: 08/07/2018 (2007) PAGE 1 Signed Report - CT C-SPINE W/O CONTRAST 2018-08-07 20:00:00 Name: CHEYENNE MISHRA [facility] : 1955 Age/S: 62 / M [address] Unit #: [id number] Loc: [place] [address] Phys: Lakeisha Yan MD Acct: [id number] Dis Date: Status: REG ER PHONE #: [phone] Exam Date: 08/07/20181939 FAX #: [phone] Reason: fall EXAMS: CPT CODE: [id number] CT C-SPINE W/O CONTRAST 41888 EXAM: CT of the cervical spine without contrast; INFORMATION: Neck pain after fall; TECHNIQUE AND FINDINGS: CT dose reduction protocol; 2.5 mm axial scans; sagittal and coronal reconstructions. Loss of physiological lordosis, which has been replaced by mild kyphosis; otherwise, good alignment of the cervical spine; Vertebral bodies, the dens and posterior elements are intact; no evidence of fracture or dislocation. Moderate narrowing of disc spaces in the lower cervical spine, associated with anterior osteophyte formation. Paravertebral soft tissues are unremarkable. Calcified plaques in the carotid arteries. IMPRESSION: 1. No evidence of acute osseous trauma. 2. Moderate degenerative disc disease and spondylosis of the lower cervical spine. at 1999 Reported and signed by: Mart Estevez M.D. CC: Lakeisha Yan MD Technologist:AMOL PEÑALOZA CT CTDI: DLP: Trnscb Date/Time: 08/07/2018 (1999) [email or web address] Orig Print D/T: S: 08/07/2018 (2002) CTDI: DLP: PAGE 1 Signed Report - CT HEAD/BRAIN W/O [id number] 19:57:00 Name: CHEYENNE MISHRA [facility] : 1955 Age/S: 62 / M [address] [facility] Unit #: [id number] Loc: [place] [address] Phys: Brad Yan MD Acct: [id number] Di s Date: Status: REG ER PHONE #: Exam Date: 08/07/20181939 FAX #: Reason: fall EXAMS: CPT CODE: [id number] CT HEAD/BRAIN W/O CONT 01204 EXAM: CT of the head with out contrast; INFORMATION: Headache after fall; TECH NIQUE AND FINDINGS: CT dose reduction protocol; 2.5 mm axial scans. There is no evidence of intra or extra-axial hemorrhage, mass lesions or midline shift. There are mild periventricular deep white matter hypo densities. Ventricles are prominent for age; also prominent sulci and basi lar cisterns. The calvarium is intact. Mild mucosal swelling i n the left maxillary and ethmoid sinuses; the remainder of the sinuses and mastoid air cells are well aerated. IMPRESSION: 1. No evidence of intracranial hemorrhage or acute territorial infarction. 2. No significant change compared with a study from June 13, showing chronic ischemic white matter changes and moderate atrophy. at 1956 Report ed and signed by: Mart Estevez M.D. CC: Lakeisha Yan MD Technologist:AMOL DE LA GARZA CTDI: DLP: Trnscb Date/Time: 08/07/2018 (1956) RoyaGRW Orig Print D/T: S: 08/07/2018 (1999) CTDI: DLP: PAGE 1 Signed Report [id number] 12:43:00* Test Item Value Reference Range Comments GLUBED (test code=GLUBED) 128 mg/dL 74-106 Performed by certified staple processing machine operator at [facility] BASIC METABOLIC [id number] 06:16:00* Test Item Value Reference Range Comments SODIUM (test code=NA) 145 mmol/L 136-145 POTASSIUM (test code=K) 4.4 mmol/L 3.5-5.1 CHLORIDE (test code=CL) 110.0 mmol/L 98-107 CARBON DIOXIDE (test code=CO2) 30.0 mmol/L 21-32 ANION GAP (test code=GAP) 9.4 10-20 GLUCOSE (test code=GLU) 94 mg/dL 74-106 BLOOD UREA NITROGEN (test code=BUN) 56 mg/dL 7-18 GLOMERULAR FILTRATION RATE (test code=GFR) 51 mL/min >=60 Estimated GFR by using Modified MDRD formula.Chronic kidney disease is defined as either kidney damageor GFR <60 mL/min/1.73 m2 for >3 months. CREATININE (test code=CREAT) 1.40 mg/dL 0.7-1.3 BUN/CREATININE RATIO (test code=BUN/CREA) 39.4 10-20 CALCIUM (test code=CA) 7.3 mg/dL 8.5-10.1 [id number] 06:16:00* Test Item Value Reference Range Comments PHOSPHORUS (test code=PHOS) 3.5 mg/dL 2.5-4.9 [id number] 06:16:00* Test Item Value Reference Range Comments MAGNESIUM (test code=MAG) 1.8 mg/dL 1.8-2.4 CALCIUM [id number] 06:16:00* Test Item Value Reference Range Comments CALCIUM IONIZED (test code=MARISSA) 1.13 mmol/L 1.12-1.32 BASIC METABOLIC [id number] 06:15:00* Test Item Value Reference Range Comments SODIUM (test code=NA) 145 mmol/L 136-145 POTASSIUM (test code=K) 4.4 mmol/L 3.5-5.1 CHLORIDE (test code=CL) 110.0 mmol/L 98-107 CARBON DIOXIDE (test code=CO2) 30.0 mmol/L 21-32 ANION GAP (test code=GAP) 9.4 10-20 GLUCOSE (test code=GLU) 94 mg/dL 74-106 BLOOD UREA NITROGEN (test code=BUN) 56 mg/dL 7-18 GLOMERULAR FILTRATION RATE (test code=GFR) 51 mL/min >=60 Estimated GFR by using Modified MDRD formula.Chronic kidney disease is defined as either kidney damageor GFR <60 mL/min/1.73 m2 for >3 months. CREATININE (test code=CREAT) 1.40 mg/dL 0.7-1.3 BUN/CREATININE RATIO (test code=BUN/CREA) 39.4 10-20 CALCIUM (test code=CA) 7.3 mg/dL 8.5-10.1 [id number] 06:15:00* Test Item Value Reference Range Comments PHOSPHORUS (test code=PHOS) 3.5 mg/dL 2.5-4.9 [id number] 06:15:00* Test Item Value Reference Range Comments MAGNESIUM (test code=MAG) 1.8 mg/dL 1.8-2.4 CALCIUM [id number] 06:15:00* Test Item Value Reference Range Comments CALCIUM IONIZED (test code=MARISSA) mmol/L 1.12-1.32 BASIC METABOLIC [id number] 06:13:00* Test Item Value Reference Range Comments SODIUM (test code=NA) 145 mmol/L 136-145 POTASSIUM (test code=K) 4.4 mmol/L 3.5-5.1 CHLORIDE (test code=CL) 110.0 mmol/L 98-107 CARBON DIOXIDE (test code=CO2) mmol/L 21-32 ANION GAP (test code=GAP) 10-20 GLUCOSE (test code=GLU) mg/dL 74-106 BLOOD UREA NITROGEN (test code=BUN) mg/dL 7-18 GLOMERULAR FILTRATION RATE (test code=GFR) mL/min >=60 CREATININE (test code=CREAT) mg/dL 0.7-1.3 BUN/CREATININE RATIO (test code=BUN/CREA) 10-20 CALCIUM (test code=CA) mg/dL 8.5-10.1 [id number] 06:13:00* Test Item Value Reference Range Comments PHOSPHORUS (test code=PHOS) mg/dL 2.5-4.9 [id number] 06:13:00* Test Item Value Reference Range Comments MAGNESIUM (test code=MAG) mg/dL 1.8-2.4 CALCIUM [id number] 06:13:00* Test Item Value Reference Range Comments CALCIUM IONIZED (test code=MARISSA) mmol/L 1.12-1.32 BASIC METABOLIC [id number] 05:56:00* Test Item Value Reference Range Comments SODIUM (test code=NA) 143 mmol/L 136-145 POTASSIUM (test code=K) 4.0 mmol/L 3.5-5.1 CHLORIDE (test code=CL) 107.0 mmol/L 98-107 CARBON DIOXIDE (test code=CO2) 28.0 mmol/L 21-32 ANION GAP (test code=GAP) 12.0 10-20 GLUCOSE (test code=GLU) 82 mg/dL 74-106 BLOOD UREA NITROGEN (test code=BUN) 55 mg/dL 7-18 GLOMERULAR FILTRATION RATE (test code=GFR) 44 mL/min >=60 Estimated GFR by using Modified MDRD formula.Chronic kidney disease is defined as either kidney damageor GFR <60 mL/min/1.73 m2 for >3 months. CREATININE (test code=CREAT) 1.60 mg/dL 0.7-1.3 BUN/CREATININE RATIO (test code=BUN/CREA) 35.0 10-20 CALCIUM (test code=CA) 6.9 mg/dL 8.5-10.1 [id number] 05:56:00* Test Item Value Reference Range Comments ALBUMIN (test code=ALB) 1.4 g/dL 3.4-5.0 [id number] 05:56:00* Test Item Value Reference Range Comments PHOSPHORUS (test code=PHOS) 3.4 mg/dL 2.5-4.9 [id number] 05:56:00* Test Item Value Reference Range Comments MAGNESIUM (test code=MAG) 2.0 mg/dL 1.8-2.4 CALCIUM [id number] 05:56:00* Test Item Value Reference Range Comments CALCIUM IONIZED (test code=MARISSA) 1.08 mmol/L 1.12-1.32 CBC W/O [id number] 05:54:00* Test Item Value Reference Range Comments WHITE BLOOD CELL (test code=WBC) 11.4 K/mm3 4.5-12.5 RED BLOOD CELL (test code=RBC) 2.97 mill/mm3 4.0-5.8 HEMOGLOBIN (test code=HGB) 9.7 gram/dL 13.0-17.5 HEMATOCRIT (test code=HCT) 31.0 % 42.0-52.0 MEAN CELL VOLUME (test code=MCV) 104.4 fL 80-98 MEAN CELL HGB (test code=MCH) 32.7 picogram 27.0-33.0 MEAN CELL HGB CONCETRATION (test code=MCHC) 31.3 gram/dL 33.0-36.0 RED CELL DISTRIBUTION WIDTH (test code=RDW) 15.8 % 11.6-16.2 PLATELET COUNT (test code=PLT) 71 K/mm3 150-450 MEAN PLATELET VOLUME (test code=MPV) 11.0 fL 6.7-11.0 BASIC METABOLIC [id number] 05:53:00* Test Item Value Reference Range Comments SODIUM (test code=NA) 143 mmol/L 136-145 POTASSIUM (test code=K) 4.0 mmol/L 3.5-5.1 CHLORIDE (test code=CL) 107.0 mmol/L 98-107 CARBON DIOXIDE (test code=CO2) mmol/L 21-32 ANION GAP (test code=GAP) 10-20 GLUCOSE (test code=GLU) mg/dL 74-106 BLOOD UREA NITROGEN (test code=BUN) mg/dL 7-18 GLOMERULAR FILTRATION RATE (test code=GFR) mL/min >=60 CREATININE (test code=CREAT) mg/dL 0.7-1.3 BUN/CREATININE RATIO (test code=BUN/CREA) 10-20 CALCIUM (test code=CA) mg/dL 8.5-10.1 [id number] 05:53:00* Test Item Value Reference Range Comments ALBUMIN (test code=ALB) g/dL 3.4-5.0 [id number] 05:53:00* Test Item Value Reference Range Comments PHOSPHORUS (test code=PHOS) mg/dL 2.5-4.9 [id number] 05:53:00* Test Item Value Reference Range Comments MAGNESIUM (test code=MAG) mg/dL 1.8-2.4 CALCIUM [id number] 05:53:00* Test Item Value Reference Range Comments CALCIUM IONIZED (test code=MARISSA) 1.08 mmol/L 1.12-1.32 BASIC METABOLIC [id number] 05:52:00* Test Item Value Reference Range Comments SODIUM (test code=NA) 143 mmol/L 136-145 POTASSIUM (test code=K) 4.0 mmol/L 3.5-5.1 CHLORIDE (test code=CL) 107.0 mmol/L 98-107 CARBON DIOXIDE (test code=CO2) mmol/L 21-32 ANION GAP (test code=GAP) 10-20 GLUCOSE (test code=GLU) mg/dL 74-106 BLOOD UREA NITROGEN (test code=BUN) mg/dL 7-18 GLOMERULAR FILTRATION RATE (test code=GFR) mL/min >=60 CREATININE (test code=CREAT) mg/dL 0.7-1.3 BUN/CREATININE RATIO (test code=BUN/CREA) 10-20 CALCIUM (test code=CA) mg/dL 8.5-10.1 [id number] 05:52:00* Test Item Value Reference Range Comments ALBUMIN (test code=ALB) g/dL 3.4-5.0 [id number] 05:52:00* Test Item Value Reference Range Comments PHOSPHORUS (test code=PHOS) mg/dL 2.5-4.9 [id number] 05:52:00* Test Item Value Reference Range Comments MAGNESIUM (test code=MAG) mg/dL 1.8-2.4 CALCIUM [id number] 05:52:00* Test Item Value Reference Range Comments CALCIUM IONIZED (test code=MARISSA) mmol/L 1.12-1.32 - XR CHEST 1 [id number] 08:29:00 FAX: Nikolai Vasquez MD [phone] [place]: St: [facility] FAX: Scott Stock MD [phone] Name: CHEYENNE MISHRA [facility] : 1955 Age/S: 62/M [address] [facility] Unit #: [id number] Loc: V.[address] [place] [address] Phys: Nikolai Sheets MD Acct: [id number] Dis Date: Status: ADM IN PHONE #: [phone] Exam Date: 08/03/2018 0802 FAX #: [phone] Reason: chf EXAMS: CPT CODE: [id number] XR CHEST 1 V 41797 HISTORY: CHF. COMPARISON: July 29, 2018. Right jugular catheter is unchanged. No acute infiltrates, effusion or congestion. Moderate cardiomegaly. IMPRESSION: The lungs are clear. No effusion or congestion or infiltrates. at 0829 Reported and signed by: Rodolfo Eckert M.D. CC: Nikolai Sheets MD; Scott Stock MD Technologist: KONRAD MURRELL JR Trnscrd Date/Time/By: 08/03 (0829) : By: [email or web address] Orig Print D/T: S: 08/03/2018 (1902) PAGE 1 Signed Report B-TYPE NATRIURETIC [id number] 05:50:00* Test Item Value Reference Range Comments B-TYPE NATRIURETIC PEPTIDE (test code=BNP) 199.03 pgram/mL 0-100 BASIC METABOLIC [id number] 05:40:00* Test Item Value Reference Range Comments SODIUM (test code=NA) 144 mmol/L 136-145 POTASSIUM (test code=K) 3.9 mmol/L 3.5-5.1 CHLORIDE (test code=CL) 108.0 mmol/L 98-107 CARBON DIOXIDE (test code=CO2) 28.0 mmol/L 21-32 ANION GAP (test code=GAP) 11.9 10-20 GLUCOSE (test code=GLU) 141 mg/dL 74-106 BLOOD UREA NITROGEN (test code=BUN) 51 mg/dL 7-18 GLOMERULAR FILTRATION RATE (test code=GFR) 36 mL/min >=60 Estimated GFR by using Modified MDRD formula.Chronic kidney disease is defined as either kidney damageor GFR <60 mL/min/1.73 m2 for >3 months. CREATININE (test code=CREAT) 1.90 mg/dL 0.7-1.3 BUN/CREATININE RATIO (test code=BUN/CREA) 27.0 10-20 CALCIUM (test code=CA) 7.0 mg/dL 8.5-10.1 [id number] 05:40:00* Test Item Value Reference Range Comments PHOSPHORUS (test code=PHOS) 3.6 mg/dL 2.5-4.9 [id number] 05:40:00* Test Item Value Reference Range Comments MAGNESIUM (test code=MAG) 1.9 mg/dL 1.8-2.4 BASIC METABOLIC [id number] 05:35:00* Test Item Value Reference Range Comments SODIUM (test code=NA) 144 mmol/L 136-145 POTASSIUM (test code=K) 3.9 mmol/L 3.5-5.1 CHLORIDE (test code=CL) 108.0 mmol/L 98-107 CARBON DIOXIDE (test code=CO2) mmol/L 21-32 ANION GAP (test code=GAP) 10-20 GLUCOSE (test code=GLU) mg/dL 74-106 BLOOD UREA NITROGEN (test code=BUN) mg/dL 7-18 GLOMERULAR FILTRATION RATE (test code=GFR) mL/min >=60 CREATININE (test code=CREAT) mg/dL 0.7-1.3 BUN/CREATININE RATIO (test code=BUN/CREA) 10-20 CALCIUM (test code=CA) 7.0 mg/dL 8.5-10.1 [id number] 05:35:00* Test Item Value Reference Range Comments PHOSPHORUS (test code=PHOS) mg/dL 2.5-4.9 [id number] 05:35:00* Test Item Value Reference Range Comments MAGNESIUM (test code=MAG) mg/dL 1.8-2.4 CBC W/O [id number] 05:25:00* Test Item Value Reference Range Comments WHITE BLOOD CELL (test code=WBC) 10.7 K/mm3 4.5-12.5 RED BLOOD CELL (test code=RBC) 2.84 mill/mm3 4.0-5.8 HEMOGLOBIN (test code=HGB) 9.5 gram/dL 13.0-17.5 HEMATOCRIT (test code=HCT) 29.3 % 42.0-52.0 MEAN CELL VOLUME (test code=MCV) 103.2 fL 80-98 MEAN CELL HGB (test code=MCH) 33.5 picogram 27.0-33.0 MEAN CELL HGB CONCETRATION (test code=MCHC) 32.4 gram/dL 33.0-36.0 RED CELL DISTRIBUTION WIDTH (test code=RDW) 15.6 % 11.6-16.2 PLATELET COUNT (test code=PLT) 49 K/mm3 150-450 Results called to [id number] by V.[email or web address] 08/03/18 0524Critical results verified and read back by Nurse? Y MEAN PLATELET VOLUME (test code=MPV) 11.2 fL 6.7-11.0 [id number] 22:30:00* Test Item Value Reference Range Comments GLUBED (test code=GLUBED) 146 mg/dL 74-106 Performed by certified staple processing machine operator at [facility] [id number] 22:29:00* Test Item Value Reference Range Comments GLUBED (test code=GLUBED) 147 mg/dL 74-106 Performed by certified staple processing machine operator at [facility] [id number] 12:51:00* Test Item Value Reference Range Comments GLUBED (test code=GLUBED) 128 mg/dL 74-106 Performed by certified staple processing machine operator at [facility] CBC W/O [id number] 11:57:00* Test Item Value Reference Range Comments WHITE BLOOD CELL (test code=WBC) 12.0 K/mm3 4.5-12.5 RED BLOOD CELL (test code=RBC) 2.78 mill/mm3 4.0-5.8 HEMOGLOBIN (test code=HGB) 9.3 gram/dL 13.0-17.5 HEMATOCRIT (test code=HCT) 29.6 % 42.0-52.0 MEAN CELL VOLUME (test code=MCV) 106.5 fL 80-98 MEAN CELL HGB (test code=MCH) 33.5 picogram 27.0-33.0 MEAN CELL HGB CONCETRATION (test code=MCHC) 31.4 gram/dL 33.0-36.0 RED CELL DISTRIBUTION WIDTH (test code=RDW) 15.7 % 11.6-16.2 PLATELET COUNT (test code=PLT) 49 K/mm3 150-450 Results called to KASSI [id number] V.LAB.OA 08/02/18 1156Critical results verified and read back by Nurse? Y MEAN PLATELET VOLUME (test code=MPV) 11.5 fL 6.7-11.0 BASIC METABOLIC [id number] 05:40:00* Test Item Value Reference Range Comments SODIUM (test code=NA) 144 mmol/L 136-145 POTASSIUM (test code=K) 3.9 mmol/L 3.5-5.1 CHLORIDE (test code=CL) 108.0 mmol/L 98-107 CARBON DIOXIDE (test code=CO2) 28.0 mmol/L 21-32 ANION GAP (test code=GAP) 11.9 10-20 GLUCOSE (test code=GLU) 94 mg/dL 74-106 BLOOD UREA NITROGEN (test code=BUN) 44 mg/dL 7-18 RESULT VERIFIED BY REPEAT ANALYSIS GLOMERULAR FILTRATION RATE (test code=GFR) 30 mL/min >=60 Estimated GFR by using Modified MDRD formula.Chronic kidney disease is defined as either kidney damageor GFR <60 mL/min/1.73 m2 for >3 months. CREATININE (test code=CREAT) 2.20 mg/dL 0.7-1.3 BUN/CREATININE RATIO (test code=BUN/CREA) 20.0 10-20 CALCIUM (test code=CA) 7.1 mg/dL 8.5-10.1 BASIC METABOLIC [id number] 05:15:00* Test Item Value Reference Range Comments SODIUM (test code=NA) 144 mmol/L 136-145 POTASSIUM (test code=K) 3.9 mmol/L 3.5-5.1 CHLORIDE (test code=CL) 108.0 mmol/L 98-107 CARBON DIOXIDE (test code=CO2) mmol/L 21-32 ANION GAP (test code=GAP) 10-20 GLUCOSE (test code=GLU) mg/dL 74-106 BLOOD UREA NITROGEN (test code=BUN) mg/dL 7-18 GLOMERULAR FILTRATION RATE (test code=GFR) mL/min >=60 CREATININE (test code=CREAT) mg/dL 0.7-1.3 BUN/CREATININE RATIO (test code=BUN/CREA) 10-20 CALCIUM (test code=CA) mg/dL 8.5-10.1 [id number] 21:27:00* Test Item Value Reference Range Comments GLUBED (test code=GLUBED) 146 mg/dL 74-106 Performed by certified staple processing machine operator at [facility] [id number] 08:09:00* Test Item Value Reference Range Comments AMMONIA (test code=AMM) 45 umol/L 11-32 BASIC METABOLIC [id number] 06:08:00* Test Item Value Reference Range Comments SODIUM (test code=NA) 142 mmol/L 136-145 POTASSIUM (test code=K) 4.0 mmol/L 3.5-5.1 CHLORIDE (test code=CL) 106.0 mmol/L 98-107 CARBON DIOXIDE (test code=CO2) 26.0 mmol/L 21-32 ANION GAP (test code=GAP) 14.0 10-20 GLUCOSE (test code=GLU) 98 mg/dL 74-106 BLOOD UREA NITROGEN (test code=BUN) 65 mg/dL 7-18 GLOMERULAR FILTRATION RATE (test code=GFR) 17 mL/min >=60 Estimated GFR by using Modified MDRD formula.Chronic kidney disease is defined as either kidney damageor GFR <60 mL/min/1.73 m2 for >3 months. CREATININE (test code=CREAT) 3.60 mg/dL 0.7-1.3 BUN/CREATININE RATIO (test code=BUN/CREA) 18.3 10-20 CALCIUM (test code=CA) 7.4 mg/dL 8.5-10.1 BASIC METABOLIC [id number] 06:01:00* Test Item Value Reference Range Comments SODIUM (test code=NA) 142 mmol/L 136-145 POTASSIUM (test code=K) 4.0 mmol/L 3.5-5.1 CHLORIDE (test code=CL) 106.0 mmol/L 98-107 CARBON DIOXIDE (test code=CO2) mmol/L 21-32 ANION GAP (test code=GAP) 10-20 GLUCOSE (test code=GLU) mg/dL 74-106 BLOOD UREA NITROGEN (test code=BUN) mg/dL 7-18 GLOMERULAR FILTRATION RATE (test code=GFR) mL/min >=60 CREATININE (test code=CREAT) mg/dL 0.7-1.3 BUN/CREATININE RATIO (test code=BUN/CREA) 10-20 CALCIUM (test code=CA) 7.4 mg/dL 8.5-10.1 CBC W/MANUAL [id number] 05:41:00* Test Item Value Reference Range Comments WHITE BLOOD CELL (test code=WBC) 15.9 K/mm3 4.5-12.5 RED BLOOD CELL (test code=RBC) 2.94 mill/mm3 4.0-5.8 HEMOGLOBIN (test code=HGB) 9.7 gram/dL 13.0-17.5 HEMATOCRIT (test code=HCT) 30.7 % 42.0-52.0 MEAN CELL VOLUME (test code=MCV) 104.4 fL 80-98 MEAN CELL HGB (test code=MCH) 33.0 picogram 27.0-33.0 MEAN CELL HGB CONCETRATION (test code=MCHC) 31.6 gram/dL 33.0-36.0 RED CELL DISTRIBUTION WIDTH (test code=RDW) 15.4 % 11.6-16.2 RED CELL DISTRIBUTION WIDTH SD (test code=RDW-SD) 56.4 fL 37.0-51.0 PLATELET COUNT (test code=PLT) 53 K/mm3 150-450 MEAN PLATELET VOLUME (test code=MPV) 11.2 fL 6.7-11.0 IMMATURE GRANULOCYTE % (test code=IG%) 18.7 % 0.0-5.0 "The appearance of immature granulocytes (myelocytes,pro-myelocytes, meta-myelocytes) in the peripheral blood ofnon- individuals can indicate a response toinfection, inflammation, or other stimulus to the bonemarrow" NUCLEATED RBC % (test code=NRBC%) 0.3 % 0-0 NEUTROPHIL # (test code=NT#) 9.97 K/mm3 1.8-7.7 IMMATURE GRANULOCYTE # (test code=IG#) 2.98 x10 3/uL 0-0.03 LYMPHOCYTE # (test code=LY#) 1.02 K/mm3 1.0-5.0 MONOCYTE # (test code=MO#) 1.33 K/mm3 0-0.8 EOSINOPHIL # (test code=EO#) 0.52 K/mm3 0.0-0.5 BASOPHIL # (test code=BA#) 0.12 K/mm3 0.0-0.2 NUCLEATED RBC # (test code=NRBC#) 0.04 K/mm3 0.0-0.1 MANUAL DIFF REQUIRED (test code=MDIFF) YES STAIN ACCEPTABILITY (test code=STN ACCEPTABLE) STAIN ACCEPTABLE TOTAL CELLS COUNTED (test code=TCC) 114 #CELLS SEGMENTED NEUTROPHILS (test code=SEG) 80.7 % 39-69 BAND NEUTROPHIL (test code=BAND) 5.3 % 0-10 LYMPHOCYTE (test code=LYMPH) 0.9 % 25-55 REACTIVE LYMPH (test code=RELYMPH) 0 % MONOCYTE (test code=MON) 6.1 % 0-10 EOSINOPHIL (test code=EOS) 0 % 0.0-5.0 BASOPHIL (test code=BASO) 0 % 0-1.0 METAMYELOCYTE (test code=META) 3.5 % 0-0 MYELOCYTE (test code=MYELO) 1.8 % 0.0-0.0 PROMYELOCYTE (test code=PROM) 1.7 % 0-0 POLYCHROMASIA (test code=POLC) 1+ PLATELET ESTIMATE (test code=PLTEST) DECREASED PLATELET MORPHOLOGY (test code=PLTMORPH) NORMAL IMMATURE FORMS (test code=IMMAT) 0 % CBC W/MANUAL [id number] 05:20:00* Test Item Value Reference Range Comments WHITE BLOOD CELL (test code=WBC) 15.9 K/mm3 4.5-12.5 RED BLOOD CELL (test code=RBC) 2.94 mill/mm3 4.0-5.8 HEMOGLOBIN (test code=HGB) 9.7 gram/dL 13.0-17.5 HEMATOCRIT (test code=HCT) 30.7 % 42.0-52.0 MEAN CELL VOLUME (test code=MCV) 104.4 fL 80-98 MEAN CELL HGB (test code=MCH) 33.0 picogram 27.0-33.0 MEAN CELL HGB CONCETRATION (test code=MCHC) 31.6 gram/dL 33.0-36.0 RED CELL DISTRIBUTION WIDTH (test code=RDW) 15.4 % 11.6-16.2 RED CELL DISTRIBUTION WIDTH SD (test code=RDW-SD) 56.4 fL 37.0-51.0 PLATELET COUNT (test code=PLT) 53 K/mm3 150-450 MEAN PLATELET VOLUME (test code=MPV) 11.2 fL 6.7-11.0 IMMATURE GRANULOCYTE % (test code=IG%) 18.7 % 0.0-5.0 "The appearance of immature granulocytes (myelocytes,pro-myelocytes, meta-myelocytes) in the peripheral blood ofnon- individuals can indicate a response toinfection, inflammation, or other stimulus to the bonemarrow" NUCLEATED RBC % (test code=NRBC%) 0.3 % 0-0 NEUTROPHIL # (test code=NT#) 9.97 K/mm3 1.8-7.7 IMMATURE GRANULOCYTE # (test code=IG#) 2.98 x10 3/uL 0-0.03 LYMPHOCYTE # (test code=LY#) 1.02 K/mm3 1.0-5.0 MONOCYTE # (test code=MO#) 1.33 K/mm3 0-0.8 EOSINOPHIL # (test code=EO#) 0.52 K/mm3 0.0-0.5 BASOPHIL # (test code=BA#) 0.12 K/mm3 0.0-0.2 NUCLEATED RBC # (test code=NRBC#) 0.04 K/mm3 0.0-0.1 MANUAL DIFF REQUIRED (test code=MDIFF) YES STAIN ACCEPTABILITY (test code=STN ACCEPTABLE) TOTAL CELLS COUNTED (test code=TCC) #CELLS SEGMENTED NEUTROPHILS (test code=SEG) % 39-69 LYMPHOCYTE (test code=LYMPH) % 25-55 MONOCYTE (test code=MON) % 0-10 EOSINOPHIL (test code=EOS) % 0.0-5.0 CABOT RINGS (test code=CAB) MORPHOLOGY COMMENT (test code=MOC) PLATELET ESTIMATE (test code=PLTEST) PLATELET MORPHOLOGY (test code=PLTMORPH) CBC W/MANUAL [id number] 05:20:00* Test Item Value Reference Range Comments WHITE BLOOD CELL (test code=WBC) 15.9 K/mm3 4.5-12.5 RED BLOOD CELL (test code=RBC) 2.94 mill/mm3 4.0-5.8 HEMOGLOBIN (test code=HGB) 9.7 gram/dL 13.0-17.5 HEMATOCRIT (test code=HCT) 30.7 % 42.0-52.0 MEAN CELL VOLUME (test code=MCV) 104.4 fL 80-98 MEAN CELL HGB (test code=MCH) 33.0 picogram 27.0-33.0 MEAN CELL HGB CONCETRATION (test code=MCHC) 31.6 gram/dL 33.0-36.0 RED CELL DISTRIBUTION WIDTH (test code=RDW) 15.4 % 11.6-16.2 RED CELL DISTRIBUTION WIDTH SD (test code=RDW-SD) 56.4 fL 37.0-51.0 PLATELET COUNT (test code=PLT) 53 K/mm3 150-450 MEAN PLATELET VOLUME (test code=MPV) 11.2 fL 6.7-11.0 IMMATURE GRANULOCYTE % (test code=IG%) 18.7 % 0.0-5.0 "The appearance of immature granulocytes (myelocytes,pro-myelocytes, meta-myelocytes) in the peripheral blood ofnon- individuals can indicate a response toinfection, inflammation, or other stimulus to the bonemarrow" NUCLEATED RBC % (test code=NRBC%) 0.3 % 0-0 NEUTROPHIL # (test code=NT#) 9.97 K/mm3 1.8-7.7 IMMATURE GRANULOCYTE # (test code=IG#) 2.98 x10 3/uL 0-0.03 LYMPHOCYTE # (test code=LY#) 1.02 K/mm3 1.0-5.0 MONOCYTE # (test code=MO#) 1.33 K/mm3 0-0.8 EOSINOPHIL # (test code=EO#) 0.52 K/mm3 0.0-0.5 BASOPHIL # (test code=BA#) 0.12 K/mm3 0.0-0.2 NUCLEATED RBC # (test code=NRBC#) 0.04 K/mm3 0.0-0.1 MANUAL DIFF REQUIRED (test code=MDIFF) YES STAIN ACCEPTABILITY (test code=STN ACCEPTABLE) TOTAL CELLS COUNTED (test code=TCC) #CELLS SEGMENTED NEUTROPHILS (test code=SEG) % 39-69 LYMPHOCYTE (test code=LYMPH) % 25-55 MONOCYTE (test code=MON) % 0-10 EOSINOPHIL (test code=EOS) % 0.0-5.0 CABOT RINGS (test code=CAB) MORPHOLOGY COMMENT (test code=MOC) PLATELET ESTIMATE (test code=PLTEST) PLATELET MORPHOLOGY (test code=PLTMORPH) CBC W/MANUAL [id number] 05:20:00* Test Item Value Reference Range Comments WHITE BLOOD CELL (test code=WBC) 15.9 K/mm3 4.5-12.5 RED BLOOD CELL (test code=RBC) 2.94 mill/mm3 4.0-5.8 HEMOGLOBIN (test code=HGB) 9.7 gram/dL 13.0-17.5 HEMATOCRIT (test code=HCT) 30.7 % 42.0-52.0 MEAN CELL VOLUME (test code=MCV) 104.4 fL 80-98 MEAN CELL HGB (test code=MCH) 33.0 picogram 27.0-33.0 MEAN CELL HGB CONCETRATION (test code=MCHC) 31.6 gram/dL 33.0-36.0 RED CELL DISTRIBUTION WIDTH (test code=RDW) 15.4 % 11.6-16.2 RED CELL DISTRIBUTION WIDTH SD (test code=RDW-SD) 56.4 fL 37.0-51.0 PLATELET COUNT (test code=PLT) 53 K/mm3 150-450 MEAN PLATELET VOLUME (test code=MPV) 11.2 fL 6.7-11.0 IMMATURE GRANULOCYTE % (test code=IG%) 18.7 % 0.0-5.0 "The appearance of immature granulocytes (myelocytes,pro-myelocytes, meta-myelocytes) in the peripheral blood ofnon- individuals can indicate a response toinfection, inflammation, or other stimulus to the bonemarrow" NUCLEATED RBC % (test code=NRBC%) 0.3 % 0-0 NEUTROPHIL # (test code=NT#) 9.97 K/mm3 1.8-7.7 IMMATURE GRANULOCYTE # (test code=IG#) 2.98 x10 3/uL 0-0.03 LYMPHOCYTE # (test code=LY#) 1.02 K/mm3 1.0-5.0 MONOCYTE # (test code=MO#) 1.33 K/mm3 0-0.8 EOSINOPHIL # (test code=EO#) 0.52 K/mm3 0.0-0.5 BASOPHIL # (test code=BA#) 0.12 K/mm3 0.0-0.2 NUCLEATED RBC # (test code=NRBC#) 0.04 K/mm3 0.0-0.1 MANUAL DIFF REQUIRED (test code=MDIFF) YES STAIN ACCEPTABILITY (test code=STN ACCEPTABLE) TOTAL CELLS COUNTED (test code=TCC) #CELLS SEGMENTED NEUTROPHILS (test code=SEG) % 39-69 LYMPHOCYTE (test code=LYMPH) % 25-55 MONOCYTE (test code=MON) % 0-10 EOSINOPHIL (test code=EOS) % 0.0-5.0 MORPHOLOGY COMMENT (test code=MOC) PLATELET ESTIMATE (test code=PLTEST) PLATELET MORPHOLOGY (test code=PLTMORPH) CBC W/MANUAL [id number] 05:20:00* Test Item Value Reference Range Comments WHITE BLOOD CELL (test code=WBC) 15.9 K/mm3 4.5-12.5 RED BLOOD CELL (test code=RBC) 2.94 mill/mm3 4.0-5.8 HEMOGLOBIN (test code=HGB) 9.7 gram/dL 13.0-17.5 HEMATOCRIT (test code=HCT) 30.7 % 42.0-52.0 MEAN CELL VOLUME (test code=MCV) 104.4 fL 80-98 MEAN CELL HGB (test code=MCH) 33.0 picogram 27.0-33.0 MEAN CELL HGB CONCETRATION (test code=MCHC) 31.6 gram/dL 33.0-36.0 RED CELL DISTRIBUTION WIDTH (test code=RDW) 15.4 % 11.6-16.2 RED CELL DISTRIBUTION WIDTH SD (test code=RDW-SD) 56.4 fL 37.0-51.0 PLATELET COUNT (test code=PLT) 53 K/mm3 150-450 MEAN PLATELET VOLUME (test code=MPV) 11.2 fL 6.7-11.0 IMMATURE GRANULOCYTE % (test code=IG%) 18.7 % 0.0-5.0 "The appearance of immature granulocytes (myelocytes,pro-myelocytes, meta-myelocytes) in the peripheral blood ofnon- individuals can indicate a response toinfection, inflammation, or other stimulus to the bonemarrow" NUCLEATED RBC % (test code=NRBC%) 0.3 % 0-0 NEUTROPHIL # (test code=NT#) 9.97 K/mm3 1.8-7.7 IMMATURE GRANULOCYTE # (test code=IG#) 2.98 x10 3/uL 0-0.03 LYMPHOCYTE # (test code=LY#) 1.02 K/mm3 1.0-5.0 MONOCYTE # (test code=MO#) 1.33 K/mm3 0-0.8 EOSINOPHIL # (test code=EO#) 0.52 K/mm3 0.0-0.5 BASOPHIL # (test code=BA#) 0.12 K/mm3 0.0-0.2 NUCLEATED RBC # (test code=NRBC#) 0.04 K/mm3 0.0-0.1 MANUAL DIFF REQUIRED (test code=MDIFF) YES STAIN ACCEPTABILITY (test code=STN ACCEPTABLE) TOTAL CELLS COUNTED (test code=TCC) #CELLS SEGMENTED NEUTROPHILS (test code=SEG) % 39-69 LYMPHOCYTE (test code=LYMPH) % 25-55 MONOCYTE (test code=MON) % 0-10 MORPHOLOGY COMMENT (test code=MOC) PLATELET ESTIMATE (test code=PLTEST) PLATELET MORPHOLOGY (test code=PLTMORPH) CBC W/MANUAL [id number] 05:20:00* Test Item Value Reference Range Comments WHITE BLOOD CELL (test code=WBC) 15.9 K/mm3 4.5-12.5 RED BLOOD CELL (test code=RBC) 2.94 mill/mm3 4.0-5.8 HEMOGLOBIN (test code=HGB) 9.7 gram/dL 13.0-17.5 HEMATOCRIT (test code=HCT) 30.7 % 42.0-52.0 MEAN CELL VOLUME (test code=MCV) 104.4 fL 80-98 MEAN CELL HGB (test code=MCH) 33.0 picogram 27.0-33.0 MEAN CELL HGB CONCETRATION (test code=MCHC) 31.6 gram/dL 33.0-36.0 RED CELL DISTRIBUTION WIDTH (test code=RDW) 15.4 % 11.6-16.2 RED CELL DISTRIBUTION WIDTH SD (test code=RDW-SD) 56.4 fL 37.0-51.0 PLATELET COUNT (test code=PLT) 53 K/mm3 150-450 MEAN PLATELET VOLUME (test code=MPV) 11.2 fL 6.7-11.0 IMMATURE GRANULOCYTE % (test code=IG%) 18.7 % 0.0-5.0 "The appearance of immature granulocytes (myelocytes,pro-myelocytes, meta-myelocytes) in the peripheral blood ofnon- individuals can indicate a response toinfection, inflammation, or other stimulus to the bonemarrow" NUCLEATED RBC % (test code=NRBC%) 0.3 % 0-0 NEUTROPHIL # (test code=NT#) 9.97 K/mm3 1.8-7.7 IMMATURE GRANULOCYTE # (test code=IG#) 2.98 x10 3/uL 0-0.03 LYMPHOCYTE # (test code=LY#) 1.02 K/mm3 1.0-5.0 MONOCYTE # (test code=MO#) 1.33 K/mm3 0-0.8 EOSINOPHIL # (test code=EO#) 0.52 K/mm3 0.0-0.5 BASOPHIL # (test code=BA#) 0.12 K/mm3 0.0-0.2 NUCLEATED RBC # (test code=NRBC#) 0.04 K/mm3 0.0-0.1 MANUAL DIFF REQUIRED (test code=MDIFF) YES STAIN ACCEPTABILITY (test code=STN ACCEPTABLE) TOTAL CELLS COUNTED (test code=TCC) #CELLS SEGMENTED NEUTROPHILS (test code=SEG) % 39-69 LYMPHOCYTE (test code=LYMPH) % 25-55 MONOCYTE (test code=MON) % 0-10 EOSINOPHIL (test code=EOS) % 0.0-5.0 CABOT RINGS (test code=CAB) MORPHOLOGY COMMENT (test code=MOC) PLATELET ESTIMATE (test code=PLTEST) PLATELET MORPHOLOGY (test code=PLTMORPH) [id number] 01:08:00* Test Item Value Reference Range Comments GLUBED (test code=GLUBED) 91 mg/dL 74-106 Performed by certified staple processing machine operator at [facility] [id number] 21:26:00* Test Item Value Reference Range Comments GLUBED (test code=GLUBED) 103 mg/dL 74-106 Performed by certified staple processing machine operator at [facility] [id number] 12:30:00* Test Item Value Reference Range Comments GLUBED (test code=GLUBED) 120 mg/dL 74-106 Performed by certified staple processing machine operator at [facility] [id number] 08:25:00* Test Item Value Reference Range Comments GLUBED (test code=GLUBED) 85 mg/dL 74-106 Performed by certified staple processing machine operator at [facility] BASIC METABOLIC [id number] 06:23:00* Test Item Value Reference Range Comments SODIUM (test code=NA) 143 mmol/L 136-145 POTASSIUM (test code=K) 4.0 mmol/L 3.5-5.1 CHLORIDE (test code=CL) 107.0 mmol/L 98-107 CARBON DIOXIDE (test code=CO2) 26.0 mmol/L 21-32 ANION GAP (test code=GAP) 14.0 10-20 GLUCOSE (test code=GLU) 90 mg/dL 74-106 BLOOD UREA NITROGEN (test code=BUN) 54 mg/dL 7-18 GLOMERULAR FILTRATION RATE (test code=GFR) 19 mL/min >=60 Estimated GFR by using Modified MDRD formula.Chronic kidney disease is defined as either kidney damageor GFR <60 mL/min/1.73 m2 for >3 months. CREATININE (test code=CREAT) 3.30 mg/dL 0.7-1.3 BUN/CREATININE RATIO (test code=BUN/CREA) 16.4 10-20 CALCIUM (test code=CA) 7.5 mg/dL 8.5-10.1 BASIC METABOLIC [id number] 06:13:00* Test Item Value Reference Range Comments SODIUM (test code=NA) 143 mmol/L 136-145 POTASSIUM (test code=K) 4.0 mmol/L 3.5-5.1 CHLORIDE (test code=CL) 107.0 mmol/L 98-107 CARBON DIOXIDE (test code=CO2) mmol/L 21-32 ANION GAP (test code=GAP) 10-20 GLUCOSE (test code=GLU) mg/dL 74-106 BLOOD UREA NITROGEN (test code=BUN) mg/dL 7-18 GLOMERULAR FILTRATION RATE (test code=GFR) mL/min >=60 CREATININE (test code=CREAT) mg/dL 0.7-1.3 BUN/CREATININE RATIO (test code=BUN/CREA) 10-20 CALCIUM (test code=CA) mg/dL 8.5-10.1 [id number] 20:52:00* Test Item Value Reference Range Comments GLUBED (test code=GLUBED) 98 mg/dL 74-106 Performed by certified staple processing machine operator at [facility] [id number] 16:46:00* Test Item Value Reference Range Comments GLUBED (test code=GLUBED) 83 mg/dL 74-106 Performed by certified staple processing machine operator at [facility] BASIC METABOLIC [id number] 06:47:00* Test Item Value Reference Range Comments SODIUM (test code=NA) 143 mmol/L 136-145 POTASSIUM (test code=K) 4.4 mmol/L 3.5-5.1 CHLORIDE (test code=CL) 108.0 mmol/L 98-107 CARBON DIOXIDE (test code=CO2) 27.0 mmol/L 21-32 ANION GAP (test code=GAP) 12.4 10-20 GLUCOSE (test code=GLU) 90 mg/dL 74-106 BLOOD UREA NITROGEN (test code=BUN) 61 mg/dL 7-18 GLOMERULAR FILTRATION RATE (test code=GFR) 23 mL/min >=60 Estimated GFR by using Modified MDRD formula.Chronic kidney disease is defined as either kidney damageor GFR <60 mL/min/1.73 m2 for >3 months. CREATININE (test code=CREAT) 2.80 mg/dL 0.7-1.3 BUN/CREATININE RATIO (test code=BUN/CREA) 21.9 10-20 CALCIUM (test code=CA) 7.9 mg/dL 8.5-10.1 [id number] 06:47:00* Test Item Value Reference Range Comments PHOSPHORUS (test code=PHOS) 3.6 mg/dL 2.5-4.9 [id number] 06:47:00* Test Item Value Reference Range Comments MAGNESIUM (test code=MAG) 2.4 mg/dL 1.8-2.4 CALCIUM [id number] 06:47:00* Test Item Value Reference Range Comments CALCIUM IONIZED (test code=MARISSA) 1.15 mmol/L 1.12-1.32 BASIC METABOLIC [id number] 06:25:00* Test Item Value Reference Range Comments SODIUM (test code=NA) 143 mmol/L 136-145 POTASSIUM (test code=K) 4.4 mmol/L 3.5-5.1 CHLORIDE (test code=CL) 108.0 mmol/L 98-107 CARBON DIOXIDE (test code=CO2) 27.0 mmol/L 21-32 ANION GAP (test code=GAP) 12.4 10-20 GLUCOSE (test code=GLU) 90 mg/dL 74-106 BLOOD UREA NITROGEN (test code=BUN) 61 mg/dL 7-18 GLOMERULAR FILTRATION RATE (test code=GFR) 23 mL/min >=60 Estimated GFR by using Modified MDRD formula.Chronic kidney disease is defined as either kidney damageor GFR <60 mL/min/1.73 m2 for >3 months. CREATININE (test code=CREAT) 2.80 mg/dL 0.7-1.3 BUN/CREATININE RATIO (test code=BUN/CREA) 21.9 10-20 CALCIUM (test code=CA) 7.9 mg/dL 8.5-10.1 [id number] 06:25:00* Test Item Value Reference Range Comments PHOSPHORUS (test code=PHOS) 3.6 mg/dL 2.5-4.9 [id number] 06:25:00* Test Item Value Reference Range Comments MAGNESIUM (test code=MAG) 2.4 mg/dL 1.8-2.4 CALCIUM [id number] 06:25:00* Test Item Value Reference Range Comments CALCIUM IONIZED (test code=MARISSA) mmol/L 1.12-1.32 BASIC METABOLIC [id number] 06:20:00* Test Item Value Reference Range Comments SODIUM (test code=NA) 143 mmol/L 136-145 POTASSIUM (test code=K) 4.4 mmol/L 3.5-5.1 CHLORIDE (test code=CL) 108.0 mmol/L 98-107 CARBON DIOXIDE (test code=CO2) mmol/L 21-32 ANION GAP (test code=GAP) 10-20 GLUCOSE (test code=GLU) mg/dL 74-106 BLOOD UREA NITROGEN (test code=BUN) mg/dL 7-18 GLOMERULAR FILTRATION RATE (test code=GFR) mL/min >=60 CREATININE (test code=CREAT) mg/dL 0.7-1.3 BUN/CREATININE RATIO (test code=BUN/CREA) 10-20 CALCIUM (test code=CA) mg/dL 8.5-10.1 [id number] 06:20:00* Test Item Value Reference Range Comments PHOSPHORUS (test code=PHOS) mg/dL 2.5-4.9 [id number] 06:20:00* Test Item Value Reference Range Comments MAGNESIUM (test code=MAG) mg/dL 1.8-2.4 CALCIUM [id number] 06:20:00* Test Item Value Reference Range Comments CALCIUM IONIZED (test code=MARISSA) mmol/L 1.12-1.32 HEPATITIS B CORE ANTIBODY,[id number] 06:14:00* Test Item Value Reference Range Comments HEPATITIS B CORE ANTIBODY,TOT (test code=HBCAB) Negative Negative Performed At: [facility] [address] [id number] Ang Gloria MD Ph:[phone] CBC W/O [id number] 05:59:00* Test Item Value Reference Range Comments WHITE BLOOD CELL (test code=WBC) 13.6 K/mm3 4.5-12.5 RED BLOOD CELL (test code=RBC) 2.82 mill/mm3 4.0-5.8 HEMOGLOBIN (test code=HGB) 9.4 gram/dL 13.0-17.5 HEMATOCRIT (test code=HCT) 28.6 % 42.0-52.0 MEAN CELL VOLUME (test code=MCV) 101.4 fL 80-98 MEAN CELL HGB (test code=MCH) 33.3 picogram 27.0-33.0 MEAN CELL HGB CONCETRATION (test code=MCHC) 32.9 gram/dL 33.0-36.0 RED CELL DISTRIBUTION WIDTH (test code=RDW) 14.7 % 11.6-16.2 PLATELET COUNT (test code=PLT) 66 K/mm3 150-450 MEAN PLATELET VOLUME (test code=MPV) 11.5 fL 6.7-11.0 AB HEPATITIS B [id number] 05:13:00* Test Item Value Reference Range Comments AB HEPATITIS B SURFACE (test code=HBSAB) Non Reactive () Non Reactive: Inconsistent with immunity, less than 10 mIU/mL Reactive: Consistent with immunity, greater than 9.9 mIU/mLPerformed At: [facility] [address] [id number] Ang Gloria MD Ph:[phone] [id number] 20:40:00* Test Item Value Reference Range Comments GLUBED (test code=GLUBED) 98 mg/dL 74-106 Performed by certified staple processing machine operator at [facility] [id number] 18:10:00* Test Item Value Reference Range Comments GLUBED (test code=GLUBED) 87 mg/dL 74-106 Performed by certified staple processing machine operator at [facility] [id number] 09:47:00* Test Item Value Reference Range Comments GLUBED (test code=GLUBED) 68 mg/dL 74-106 Performed by certified staple processing machine operator at [facility] - XR CHEST 1 [id number] 09:15:00 FAX: Nikolai Vasquez MD [phone] [place]: B St: [facility] FAX: Scott Stock MD [phone] Name: CHEYENNE MIHSRA [facility] : 1955 Age/S: 62/M [facility] Unit #: [id number] Loc: [address] [address] Phys: Nikolai Sheets MD Acct: [id number] Dis Date: Status: ADM IN PHONE #: [phone] Exam Date: 07/29/2018 0848 FAX #: [phone] Reason: chf EXAMS: CPT CODE: [id number] XR CHEST 1 V 81675 HISTORY: CHF. COMPARISON: July 28, 2018. Right catheter is unchanged. No acute infiltrates, effusion or congestion is noted. Suboptimal inspiration. Dependent changes. The cardiac and mediastinal silhouette are within normal limits. IMPRESSION: No acute infiltrates, effusion or congestion. at 0915 Reported and signed by: Rodolfo Eckert M.D. CC: Nikolai Sheets MD; Scott Stock MD Technologist: Radha Dove(Yoana); STUDENT TECHNOLOGIST Trnscrd Date/Time/By: 07/29/2018 (9071) : By: Shelli.[email or web address] Orig Print D/T: S: 07/29/2018 (4365) PAGE 1 Signed Report [id number] 08:32:00* Test Item Value Reference Range Comments GLUBED (test code=GLUBED) 66 mg/dL 74-106 Performed by certified staple processing machine operator at [facility] BASIC METABOLIC [id number] 05:34:00* Test Item Value Reference Range Comments SODIUM (test code=NA) 141 mmol/L 136-145 POTASSIUM (test code=K) 4.3 mmol/L 3.5-5.1 CHLORIDE (test code=CL) 106.0 mmol/L 98-107 CARBON DIOXIDE (test code=CO2) 25.0 mmol/L 21-32 ANION GAP (test code=GAP) 14.3 10-20 GLUCOSE (test code=GLU) 75 mg/dL 74-106 BLOOD UREA NITROGEN (test code=BUN) 73 mg/dL 7-18 GLOMERULAR FILTRATION RATE (test code=GFR) 19 mL/min >=60 Estimated GFR by using Modified MDRD formula.Chronic kidney disease is defined as either kidney damageor GFR <60 mL/min/1.73 m2 for >3 months. CREATININE (test code=CREAT) 3.30 mg/dL 0.7-1.3 BUN/CREATININE RATIO (test code=BUN/CREA) 22.1 10-20 CALCIUM (test code=CA) 7.6 mg/dL 8.5-10.1 [id number] 05:34:00* Test Item Value Reference Range Comments PHOSPHORUS (test code=PHOS) 4.0 mg/dL 2.5-4.9 [id number] 05:34:00* Test Item Value Reference Range Comments MAGNESIUM (test code=MAG) 2.4 mg/dL 1.8-2.4 BASIC METABOLIC [id number] 05:18:00* Test Item Value Reference Range Comments SODIUM (test code=NA) 141 mmol/L 136-145 POTASSIUM (test code=K) 4.3 mmol/L 3.5-5.1 CHLORIDE (test code=CL) 106.0 mmol/L 98-107 CARBON DIOXIDE (test code=CO2) mmol/L 21-32 ANION GAP (test code=GAP) 10-20 GLUCOSE (test code=GLU) mg/dL 74-106 BLOOD UREA NITROGEN (test code=BUN) mg/dL 7-18 GLOMERULAR FILTRATION RATE (test code=GFR) mL/min >=60 CREATININE (test code=CREAT) mg/dL 0.7-1.3 BUN/CREATININE RATIO (test code=BUN/CREA) 10-20 CALCIUM (test code=CA) mg/dL 8.5-10.1 [id number] 05:18:00* Test Item Value Reference Range Comments PHOSPHORUS (test code=PHOS) mg/dL 2.5-4.9 [id number] 05:18:00* Test Item Value Reference Range Comments MAGNESIUM (test code=MAG) mg/dL 1.8-2.4 [id number] 05:04:00* Test Item Value Reference Range Comments AMMONIA (test code=AMM) 45 umol/L 11-32 CBC W/O [id number] 04:56:00* Test Item Value Reference Range Comments WHITE BLOOD CELL (test code=WBC) 10.0 K/mm3 4.5-12.5 RED BLOOD CELL (test code=RBC) 2.74 mill/mm3 4.0-5.8 HEMOGLOBIN (test code=HGB) 9.0 gram/dL 13.0-17.5 HEMATOCRIT (test code=HCT) 27.3 % 42.0-52.0 MEAN CELL VOLUME (test code=MCV) 99.6 fL 80-98 MEAN CELL HGB (test code=MCH) 32.8 picogram 27.0-33.0 MEAN CELL HGB CONCETRATION (test code=MCHC) 33.0 gram/dL 33.0-36.0 RED CELL DISTRIBUTION WIDTH (test code=RDW) 14.7 % 11.6-16.2 PLATELET COUNT (test code=PLT) 70 K/mm3 150-450 MEAN PLATELET VOLUME (test code=MPV) 11.3 fL 6.7-11.0 [id number] 16:20:00* Test Item Value Reference Range Comments GLUBED (test code=GLUBED) 89 mg/dL 74-106 Performed by certified staple processing machine operator at [facility] [id number] 12:33:00* Test Item Value Reference Range Comments GLUBED (test code=GLUBED) 85 mg/dL 74-106 Performed by certified staple processing machine operator at [facility] [id number] 12:33:00* Test Item Value Reference Range Comments GLUBED (test code=GLUBED) 61 mg/dL 74-106 Performed by certified staple processing machine operator at [facility] - [place] GUIDANCE VASC [id number] 11:34:00 Name: CHEYENNE MISHRA [facility] : 1955 Age/S: 62 / M [address] Unit #: [id number] Loc: [place] [address] Phys: Scott Stock MD Acct: [id number] Dis Date: Status: ADM IN PHONE #: [phone] Exam Date: 07/28/2018 1015 FAX #: [phone] Reason: EXAMS: CPT CODE: [id number] US GUIDANCE VASC ACCESS 18214 Fluoro Time: 0 DAP (Gy m2): 0 Air Kerma (mGy): 0 REASON FOR EXAM: Acute renal failure Exam Order Date: 07/28/2018 10:05 AM Attending MEstrella: Scott Stock MD PROCEDURE: Ultrasound guided temporary dialysis catheter placement Rxis-nz-[id number] approximate procedure time is 30 minutes FINDINGS: After informed consent was obtained, the equipment was brought to patient's bedside. The right neck was prepped and draped in the usual fashion. All elements of maximal sterile barrier technique were followed. Ultrasound showed patency of the right IJ. No thrombus identified, the vein is patent. Images of the vein were submitted to PACS. Under real time ultrasound guidance, a micropuncture needle was used to access the vein. A catheter was inserted with the tip positioned within the SVC (confirmed by follow-up chest x-ray). The catheter was sutured to the subcutaneous tissue and is ready for use. MEDICATIONS: 1 mg of Versed, 50 mcg of fentanyl. COMPLICATIONS: None. Blood Loss: less than 5cc IMPRESSION: Right IJ temporary dialysis catheter is ready for use. at 1133 Reported and signed by: Henrry Wells M.D. CC: Scott Stock MD Technologist: Paco Randolph [facility] Date/Time: 07/28/2018 (3613) [email or web address] Orig Print D/T: S: 07/28/2018 (3646) PAGE 1 Signed Report - XR CHEST 1 [id number] 11:00:00 FAX: Scott Stock MD [phone] [place]: St: ADM Name: CHEYENNE WONG [facility] : [birth year] Age/S: 62/M [address] [facility] Unit #: [id number] Loc: V.[address] [place] [address] Phys: Henrry Wells MD Acct: [id number] Dis Date: Status: ADM IN PHONE #: [phone] Exam Date: 07/28/2018 1059 FAX #: [phone] Reason: HD CATHETER EXAMS: CPT CODE: [id number] XR CHEST 1 V 47128 HISTORY: HD catheter placement. COMPARISON: July 21, 2018. Right jugular catheter with the tip projected over the SVC. No pneumothorax. No acute infiltrates, effusion or congestion. Dependent changes. Cardiomegaly. IMPRESSION: No pneumothorax after right jugular catheter p lacement the tip projected over the SVC. Electronically Sign ed by John Eckert on 07/28/2018 at 1100 Reported a nd signed by: Rodolfo Eckert M.D. CC: Scott Stock Technologist: RT KYA(R) Trnscrd Date/Time/By: 07/28/2018 (1100) : By: Shelli DoughertyTH4 Orig Print D/T: S: 07/28/2018 (0329) PAGE 1 Signed Report LACTIC ACID 2018-07-28 05:34:00* Test Item Value Reference Range Comments LACTIC ACID (test code=LACT) 2.6 mmol/L 0.4-1.9 Results called to [id number] by V.LAB.AG1 07/28/18 0530Critical results verified and read back by Nurse? Y BASIC METABOLIC [id number] 05:10:00* Test Item Value Reference Range Comments SODIUM (test code=NA) 138 mmol/L 136-145 POTASSIUM (test code=K) 4.8 mmol/L 3.5-5.1 CHLORIDE (test code=CL) 106.0 mmol/L 98-107 CARBON DIOXIDE (test code=CO2) 23.0 mmol/L 21-32 ANION GAP (test code=GAP) 13.8 10-20 GLUCOSE (test code=GLU) 65 mg/dL 74-106 BLOOD UREA NITROGEN (test code=BUN) 78 mg/dL 7-18 GLOMERULAR FILTRATION RATE (test code=GFR) 14 mL/min >=60 Estimated GFR by using Modified MDRD formula.Chronic kidney disease is defined as either kidney damageor GFR <60 mL/min/1.73 m2 for >3 months. CREATININE (test code=CREAT) 4.30 mg/dL 0.7-1.3 BUN/CREATININE RATIO (test code=BUN/CREA) 18.3 10-20 CALCIUM (test code=CA) 7.2 mg/dL 8.5-10.1 [id number] 05:10:00* Test Item Value Reference Range Comments PHOSPHORUS (test code=PHOS) 5.4 mg/dL 2.5-4.9 [id number] 05:10:00* Test Item Value Reference Range Comments MAGNESIUM (test code=MAG) 2.4 mg/dL 1.8-2.4 CALCIUM [id number] 05:10:00* Test Item Value Reference Range Comments CALCIUM IONIZED (test code=MARISSA) 1.02 mmol/L 1.12-1.32 [id number] 05:04:00* Test Item Value Reference Range Comments AMMONIA (test code=AMM) < 10 umol/L 11-32 CBC W/O [id number] 05:00:00* Test Item Value Reference Range Comments WHITE BLOOD CELL (test code=WBC) 11.6 K/mm3 4.5-12.5 RED BLOOD CELL (test code=RBC) 3.14 mill/mm3 4.0-5.8 HEMOGLOBIN (test code=HGB) 10.2 gram/dL 13.0-17.5 HEMATOCRIT (test code=HCT) 31.7 % 42.0-52.0 MEAN CELL VOLUME (test code=MCV) 101.0 fL 80-98 MEAN CELL HGB (test code=MCH) 32.5 picogram 27.0-33.0 MEAN CELL HGB CONCETRATION (test code=MCHC) 32.2 gram/dL 33.0-36.0 RED CELL DISTRIBUTION WIDTH (test code=RDW) 14.6 % 11.6-16.2 PLATELET COUNT (test code=PLT) 92 K/mm3 150-450 MEAN PLATELET VOLUME (test code=MPV) 11.2 fL 6.7-11.0 BASIC METABOLIC [id number] 04:58:00* Test Item Value Reference Range Comments SODIUM (test code=NA) mmol/L 136-145 POTASSIUM (test code=K) mmol/L 3.5-5.1 CHLORIDE (test code=CL) mmol/L 98-107 CARBON DIOXIDE (test code=CO2) mmol/L 21-32 ANION GAP (test code=GAP) 10-20 GLUCOSE (test code=GLU) mg/dL 74-106 BLOOD UREA NITROGEN (test code=BUN) mg/dL 7-18 GLOMERULAR FILTRATION RATE (test code=GFR) mL/min >=60 CREATININE (test code=CREAT) mg/dL 0.7-1.3 BUN/CREATININE RATIO (test code=BUN/CREA) 10-20 CALCIUM (test code=CA) mg/dL 8.5-10.1 [id number] 04:58:00* Test Item Value Reference Range Comments PHOSPHORUS (test code=PHOS) mg/dL 2.5-4.9 [id number] 04:58:00* Test Item Value Reference Range Comments MAGNESIUM (test code=MAG) mg/dL 1.8-2.4 CALCIUM [id number] 04:58:00* Test Item Value Reference Range Comments CALCIUM IONIZED (test code=MARISSA) 1.02 mmol/L 1.12-1.32 LACTIC [id number] 23:46:00* Test Item Value Reference Range Comments LACTIC ACID (test code=LACT) 2.9 mmol/L 0.4-1.9 Results called to [id number] by V.LAB.[facility] 07/27/18 2346Critical results verified and read back by Nurse? Y [id number] 21:01:00* Test Item Value Reference Range Comments GLUBED (test code=GLUBED) 84 mg/dL 74-106 Performed by certified staple processing machine operator at [facility] LACTIC [id number] 19:27:00* Test Item Value Reference Range Comments LACTIC ACID (test code=LACT) 2.5 mmol/L 0.4-1.9 Results called to [id number] by V.LAB.KP1 07/27/18 1926Critical results verified and read back by Nurse? Y [id number] 16:45:00* Test Item Value Reference Range Comments AMMONIA (test code=AMM) < 10 umol/L - [id number] 16:30:00* Test Item Value Reference Range Comments GLUBED (test code=GLUBED) 128 mg/dL 74-106 [facility] staple processing [facility] LACTIC [id number] 16:03:00* Test Item Value Reference Range Comments LACTIC ACID (test code=LACT) 2.7 mmol/L 0.4-1.9 Results called to [id number] by V.LAB.[facility] 07/27/18 1602Critical results verified and read back by Nurse? Y [id number] 12:18:00* Test Item Value Reference Range Comments GLUBED (test code=GLUBED) 80 mg/dL 74-106 [facility] certified staple processing machine [facility] LACTIC [id number] 10:50:00* Test Item Value Reference Range Comments LACTIC ACID (test code=LACT) 2.7 mmol/L 0.4-1.9 Results called to [id number] by V.LAB.LDB 07/27/18 1050Critical results verified and read back by Nurse? Y [id number] 07:59:00* Test Item Value Reference Range Comments GLUBED (test code=GLUBED) 69 mg/dL 74-106 [facility] certified staple processing [facility] BILIRUBIN [id number] 05:55:00* Test Item Value Reference Range Comments BILIRUBIN TOTAL (test code=BILT) 2.80 mg/dL 0.0-1.0 LACTIC [id number] 05:38:00* Test Item Value Reference Range Comments LACTIC ACID (test code=LACT) 2.4 mmol/L 0.4-1.9 Results called to [id number] by V.LAB.AG1 07/27/18 0537Critical results verified and read back by Nurse? Y BASIC METABOLIC [id number] 05:35:00* Test Item Value Reference Range Comments SODIUM (test code=NA) 138 mmol/L 136-145 RESULT VERIFIED BY REPEAT ANALYSIS POTASSIUM (test code=K) 4.6 mmol/L 3.5-5.1 CHLORIDE (test code=CL) 105.0 mmol/L 98-107 CARBON DIOXIDE (test code=CO2) 25.0 mmol/L 21-32 ANION GAP (test code=GAP) 12.6 10-20 GLUCOSE (test code=GLU) 78 mg/dL 74-106 BLOOD UREA NITROGEN (test code=BUN) 65 mg/dL 7-18 GLOMERULAR FILTRATION RATE (test code=GFR) 16 mL/min >=60 Estimated GFR by using Modified MDRD formula.Chronic kidney disease is defined as either kidney damageor GFR <60 mL/min/1.73 m2 for >3 months. CREATININE (test code=CREAT) 3.90 mg/dL 0.7-1.3 BUN/CREATININE RATIO (test code=BUN/CREA) 16.5 10-20 CALCIUM (test code=CA) 7.3 mg/dL 8.5-10.1 [id number] 05:35:00* Test Item Value Reference Range Comments ALBUMIN (test code=ALB) 0.8 g/dL 3.4-5.0 [id number] 05:35:00* Test Item Value Reference Range Comments PHOSPHORUS (test code=PHOS) 4.9 mg/dL 2.5-4.9 [id number] 05:35:00* Test Item Value Reference Range Comments MAGNESIUM (test code=MAG) 2.2 mg/dL 1.8-2.4 CALCIUM [id number] 05:35:00* Test Item Value Reference Range Comments CALCIUM IONIZED (test code=MARISSA) 1.11 mmol/L 1.12-1.32 B-TYPE NATRIURETIC [id number] 05:35:00* Test Item Value Reference Range Comments B-TYPE NATRIURETIC PEPTIDE (test code=BNP) 339.52 pgram/mL 0-100 BASIC METABOLIC [id number] 05:24:00* Test Item Value Reference Range Comments SODIUM (test code=NA) mmol/L 136-145 POTASSIUM (test code=K) mmol/L 3.5-5.1 CHLORIDE (test code=CL) mmol/L 98-107 CARBON DIOXIDE (test code=CO2) mmol/L 21-32 ANION GAP (test code=GAP) 10-20 GLUCOSE (test code=GLU) mg/dL 74-106 BLOOD UREA NITROGEN (test code=BUN) mg/dL 7-18 GLOMERULAR FILTRATION RATE (test code=GFR) mL/min >=60 CREATININE (test code=CREAT) mg/dL 0.7-1.3 BUN/CREATININE RATIO (test code=BUN/CREA) 10-20 CALCIUM (test code=CA) mg/dL 8.5-10.1 [id number] 05:24:00* Test Item Value Reference Range Comments ALBUMIN (test code=ALB) g/dL 3.4-5.0 [id number] 05:24:00* Test Item Value Reference Range Comments PHOSPHORUS (test code=PHOS) mg/dL 2.5-4.9 [id number] 05:24:00* Test Item Value Reference Range Comments MAGNESIUM (test code=MAG) mg/dL 1.8-2.4 CALCIUM [id number] 05:24:00* Test Item Value Reference Range Comments CALCIUM IONIZED (test code=MARISSA) 1.11 mmol/L 1.12-1.32 CBC W/O [id number] 05:17:00* Test Item Value Reference Range Comments WHITE BLOOD CELL (test code=WBC) 12.3 K/mm3 4.5-12.5 RED BLOOD CELL (test code=RBC) 3.05 mill/mm3 4.0-5.8 HEMOGLOBIN (test code=HGB) 10.4 gram/dL 13.0-17.5 HEMATOCRIT (test code=HCT) 30.5 % 42.0-52.0 MEAN CELL VOLUME (test code=MCV) 100.0 fL 80-98 MEAN CELL HGB (test code=MCH) 34.1 picogram 27.0-33.0 MEAN CELL HGB CONCETRATION (test code=MCHC) 34.1 gram/dL 33.0-36.0 RED CELL DISTRIBUTION WIDTH (test code=RDW) 14.6 % 11.6-16.2 PLATELET COUNT (test code=PLT) 100 K/mm3 150-450 RESULT VERIFIED BY REPEAT ANALYSIS MEAN PLATELET VOLUME (test code=MPV) 10.8 fL 6.7-11.0 UR NA,[id number] 04:47:00* Test Item Value Reference Range Comments UR NA,RANDOM (test code=GLEN) 13 mmol/L 20-110 UR CREATININE [id number] 04:47:00* Test Item Value Reference Range Comments UR CREATININE RANDOM (test code=CREATU) 346.0 mg/dL 30-125 UR NA,[id number] 04:34:00* Test Item Value Reference Range Comments UR NA,RANDOM (test code=GLEN) 13 mmol/L 20-110 UR CREATININE [id number] 04:34:00* Test Item Value Reference Range Comments UR CREATININE RANDOM (test code=CREATU) mg/dL 30-125 URINALYSIS [id number] 04:24:00* Test Item Value Reference Range Comments UA COLOR (test code=COLU) CALOS YELLOW UA APPEARANCE (test code=APPU) Cloudy CLEAR UA GLUCOSE DIPSTICK (test code=DGLUU) NEGATIVE mg/dL NEGATIVE UA BILIRUBIN DIPSTICK (test code=BILU) 1+ (SMALL) mg/dL NEGATIVE UA KETONE DIPSTICK (test code=KETU) Negative mg/dL NEGATIVE UA SPECIFIC GRAVITY (test code=SGU) 1.021 1.001-1.035 UA BLOOD DIPSTICK (test code=MARIBETH) 3+ (Large) NEGATIVE UA PH DIPSTICK (test code=DAVID) 5.0 5.0-8.0 UA PROTEIN DIPSTICK (test code=PROU) 100 (2+) mg/dL NEGATIVE UA UROBILINIOGEN DIPSTICK (test code=URO) 4.0 (2+) mg/dL NEGATIVE UA NITRITE DIPSTICK (test code=PEPITO) NEGATIVE NEGATIVE UA LEUKOCYTE ESTERASE W REFLEX (test code=LEUUR) 2+ NEGATIVE UA WBC (test code=WBCU) >50 #/HPF 0-5 UA RBC (test code=RBCU) >20 #/HPF 0-5 UA WBC CLUMPS (test code=WBCUCL) >10 /HPF NONE UA EPITHELIAL CELLS (test code=EPIU) FEW per HPF FEW UA BACTERIA (test code=BACU) MANY #/HPF NONE UA HYALINE CAST (test code=HYALU) >20 #/LPF 0-5 UA MUCUS (test code=MUCU) FEW #/LPF FEW Urine Source? CatheterURINALYSIS [id number] 04:21:00* Test Item Value Reference Range Comments UA COLOR (test code=COLU) CALOS YELLOW UA APPEARANCE (test code=APPU) Cloudy CLEAR UA GLUCOSE DIPSTICK (test code=DGLUU) NEGATIVE mg/dL NEGATIVE UA BILIRUBIN DIPSTICK (test code=BILU) 1+ (SMALL) mg/dL NEGATIVE UA KETONE DIPSTICK (test code=KETU) Negative mg/dL NEGATIVE UA SPECIFIC GRAVITY (test code=SGU) 1.021 1.001-1.035 UA BLOOD DIPSTICK (test code=MARIBETH) 3+ (Large) NEGATIVE UA PH DIPSTICK (test code=DAVID) 5.0 5.0-8.0 UA PROTEIN DIPSTICK (test code=PROU) 100 (2+) mg/dL NEGATIVE UA UROBILINIOGEN DIPSTICK (test code=URO) 4.0 (2+) mg/dL NEGATIVE UA NITRITE DIPSTICK (test code=PEPITO) NEGATIVE NEGATIVE UA LEUKOCYTE ESTERASE W REFLEX (test code=LEUUR) 2+ NEGATIVE UA WBC (test code=WBCU) per HPF 0-5 Urine Source? [id number] 21:12:00* Test Item Value Reference Range Comments GLUBED (test code=GLUBED) 106 mg/dL 74-106 Performed by certified staple processing machine operator at [facility] - US RETRO [id number] 19:54:00 Name: CHEYENNE MISHRA [facility] : 1955 Age/S: 62 / M [address] [facility] Unit #: [id number] Loc: [place] [address] Phys: Scott Stock MD Acct: [id number] Dis Date: Status: ADM IN PHONE #: [phone] Exam Date: 07/26/2018 182 FAX #: [phone] Reason: RENAL LABS, FLUID RETENTION EXAMS: CPT CODE: [id number] RETRO LTD [id number] EXAM: Ultrasound retroperitoneum, limited; INFORMATION: Fluid retention; renal failure, creatinine 3.5; FINDINGS: The kidneys are of normal size and shape; no evidence of hydronephrosis or stones. The right kidney measures 10.8 x 5.6 x 5.6 cm, with a parenchymal thickness of 1.4 cm. The left kidney measures 12 x 5.7 x 5.3 cm, with a parenchymal thickness of 1.6 cm. The bladder has been decompressed with a Amaro catheter; IMPRESSION: Normal-sized kidneys without evidence of hydronephrosis or stones. at 1954 Reported and signed by: Mart Estevez M.D. CC: Scott Stock MD Technologist: Leti Padilla RDMS Trnscb Date/Time: 07/26/2018 (1954) Tabby Orig Print D/T: S: 07/26/2018 (1956) Probe: PAGE 1 Signed Report GLUBED 2018-07-26 16:39:00* Test Item Value Reference Range Comments GLUBED (test code=GLUBED) 93 mg/dL 74-106 Performed by certified staple processing machine operator at [facility] BASIC METABOLIC [id number] 15:50:00* Test Item Value Reference Range Comments SODIUM (test code=NA) 133 mmol/L 136-145 RESULT VERIFIED BY REPEAT ANALYSIS POTASSIUM (test code=K) 4.8 mmol/L 3.5-5.1 CHLORIDE (test code=CL) 107.0 mmol/L 98-107 CARBON DIOXIDE (test code=CO2) 16.0 mmol/L 21-32 ANION GAP (test code=GAP) 14.8 10-20 GLUCOSE (test code=GLU) 75 mg/dL 74-106 BLOOD UREA NITROGEN (test code=BUN) 56 mg/dL 7-18 GLOMERULAR FILTRATION RATE (test code=GFR) 18 mL/min >=60 Estimated GFR by using Modified MDRD formula.Chronic kidney disease is defined as either kidney damageor GFR <60 mL/min/1.73 m2 for >3 months. CREATININE (test code=CREAT) 3.50 mg/dL 0.7-1.3 BUN/CREATININE RATIO (test code=BUN/CREA) 16.1 10-20 CALCIUM (test code=CA) 6.9 mg/dL 8.5-10.1 BASIC METABOLIC [id number] 15:49:00* Test Item Value Reference Range Comments SODIUM (test code=NA) 133 mmol/L 136-145 RESULT VERIFIED BY REPEAT ANALYSIS POTASSIUM (test code=K) 4.8 mmol/L 3.5-5.1 CHLORIDE (test code=CL) 107.0 mmol/L 98-107 CARBON DIOXIDE (test code=CO2) mmol/L 21-32 ANION GAP (test code=GAP) 10-20 GLUCOSE (test code=GLU) mg/dL 74-106 BLOOD UREA NITROGEN (test code=BUN) mg/dL 7-18 GLOMERULAR FILTRATION RATE (test code=GFR) mL/min >=60 CREATININE (test code=CREAT) mg/dL 0.7-1.3 BUN/CREATININE RATIO (test code=BUN/CREA) 10-20 CALCIUM (test code=CA) 6.9 mg/dL 8.5-10.1 [id number] 12:24:00* Test Item Value Reference Range Comments GLUBED (test code=GLUBED) 69 mg/dL 74-106 [facility] [id number] 11:11:00* Test Item Value Reference Range Comments GLUBED (test code=GLUBED) 65 mg/dL 74-106 [facility] staple processing [facility] [id number] 11:11:00* Test Item Value Reference Range Comments GLUBED (test code=GLUBED) 44 mg/dL 74-106 [facility] certified staple processing machine [facility] CBC W/AUTO [id number] 07:31:00* Test Item Value Reference Range Comments WHITE BLOOD CELL (test code=WBC) 9.9 K/mm3 4.5-12.5 RED BLOOD CELL (test code=RBC) 3.30 mill/mm3 4.0-5.8 HEMOGLOBIN (test code=HGB) 11.3 gram/dL 13.0-17.5 HEMATOCRIT (test code=HCT) 33.7 % 42.0-52.0 MEAN CELL VOLUME (test code=MCV) 102.1 fL 80-98 MEAN CELL HGB (test code=MCH) 34.2 picogram 27.0-33.0 MEAN CELL HGB CONCETRATION (test code=MCHC) 33.5 gram/dL 33.0-36.0 RED CELL DISTRIBUTION WIDTH (test code=RDW) 14.6 % 11.6-16.2 RED CELL DISTRIBUTION WIDTH SD (test code=RDW-SD) 54.6 fL 37.0-51.0 PLATELET COUNT (test code=PLT) 70 K/mm3 150-450 MEAN PLATELET VOLUME (test code=MPV) 11.3 fL 6.7-11.0 NEUTROPHIL % (test code=NT%) 90.5 % 39.0-69.0 IMMATURE GRANULOCYTE % (test code=IG%) 1.7 % 0.0-5.0 LYMPHOCYTE % (test code=LY%) 3.2 % 25.0-55.0 MONOCYTE % (test code=MO%) 3.7 % 0.0-10.0 EOSINOPHIL % (test code=EO%) 0.2 % 0.0-5.0 BASOPHIL % (test code=BA%) 0.7 % 0.0-1.0 NUCLEATED RBC % (test code=NRBC%) 0.2 % 0-0 NEUTROPHIL # (test code=NT#) 8.99 K/mm3 1.8-7.7 IMMATURE GRANULOCYTE # (test code=IG#) 0.17 x10 3/uL 0-0.03 LYMPHOCYTE # (test code=LY#) 0.32 K/mm3 1.0-5.0 MONOCYTE # (test code=MO#) 0.37 K/mm3 0-0.8 EOSINOPHIL # (test code=EO#) 0.02 K/mm3 0.0-0.5 BASOPHIL # (test code=BA#) 0.07 K/mm3 0.0-0.2 NUCLEATED RBC # (test code=NRBC#) 0.02 K/mm3 0.0-0.1 MANUAL DIFF REQUIRED (test code=MDIFF) NO BASIC METABOLIC [id number] 06:26:00* Test Item Value Reference Range Comments SODIUM (test code=NA) 140 mmol/L 136-145 POTASSIUM (test code=K) 4.2 mmol/L 3.5-5.1 CHLORIDE (test code=CL) 107.0 mmol/L 98-107 CARBON DIOXIDE (test code=CO2) 21.0 mmol/L 21-32 ANION GAP (test code=GAP) 16.2 10-20 GLUCOSE (test code=GLU) 45 mg/dL 74-106 Results called to [id number] by RYAN 07/26/18 0626Critical results verified and read back by Nurse? Y BLOOD UREA NITROGEN (test code=BUN) 50 mg/dL 7-18 GLOMERULAR FILTRATION RATE (test code=GFR) 20 mL/min >=60 Estimated GFR by using Modified MDRD formula.Chronic kidney disease is defined as either kidney damageor GFR <60 mL/min/1.73 m2 for >3 months. CREATININE (test code=CREAT) 3.20 mg/dL 0.7-1.3 BUN/CREATININE RATIO (test code=BUN/CREA) 15.7 10-20 CALCIUM (test code=CA) 7.0 mg/dL 8.5-10.1 [id number] 06:26:00* Test Item Value Reference Range Comments MAGNESIUM (test code=MAG) 1.9 mg/dL 1.8-2.4 BASIC METABOLIC [id number] 05:56:00* Test Item Value Reference Range Comments SODIUM (test code=NA) 140 mmol/L 136-145 POTASSIUM (test code=K) 4.2 mmol/L 3.5-5.1 CHLORIDE (test code=CL) 107.0 mmol/L 98-107 CARBON DIOXIDE (test code=CO2) mmol/L 21-32 ANION GAP (test code=GAP) 10-20 GLUCOSE (test code=GLU) mg/dL 74-106 BLOOD UREA NITROGEN (test code=BUN) mg/dL 7-18 GLOMERULAR FILTRATION RATE (test code=GFR) mL/min >=60 CREATININE (test code=CREAT) mg/dL 0.7-1.3 BUN/CREATININE RATIO (test code=BUN/CREA) 10-20 CALCIUM (test code=CA) mg/dL 8.5-10.1 [id number] 05:56:00* Test Item Value Reference Range Comments MAGNESIUM (test code=MAG) mg/dL 1.8-2.4 BASIC METABOLIC [id number] 11:24:00* Test Item Value Reference Range Comments SODIUM (test code=NA) 142 mmol/L 136-145 POTASSIUM (test code=K) 3.8 mmol/L 3.5-5.1 CHLORIDE (test code=CL) 110.0 mmol/L 98-107 CARBON DIOXIDE (test code=CO2) 27.0 mmol/L 21-32 ANION GAP (test code=GAP) 8.8 10-20 GLUCOSE (test code=GLU) 90 mg/dL 74-106 BLOOD UREA NITROGEN (test code=BUN) 29 mg/dL 7-18 GLOMERULAR FILTRATION RATE (test code=GFR) 51 mL/min >=60 Estimated GFR by using Modified MDRD formula.Chronic kidney disease is defined as either kidney damageor GFR <60 mL/min/1.73 m2 for >3 months. CREATININE (test code=CREAT) 1.40 mg/dL 0.7-1.3 BUN/CREATININE RATIO (test code=BUN/CREA) 20.0 10-20 CALCIUM (test code=CA) 7.2 mg/dL 8.5-10.1 BASIC METABOLIC [id number] 11:21:00* Test Item Value Reference Range Comments SODIUM (test code=NA) 142 mmol/L 136-145 POTASSIUM (test code=K) 3.8 mmol/L 3.5-5.1 CHLORIDE (test code=CL) 110.0 mmol/L 98-107 CARBON DIOXIDE (test code=CO2) mmol/L 21-32 ANION GAP (test code=GAP) 10-20 GLUCOSE (test code=GLU) mg/dL 74-106 BLOOD UREA NITROGEN (test code=BUN) mg/dL 7-18 GLOMERULAR FILTRATION RATE (test code=GFR) mL/min >=60 CREATININE (test code=CREAT) mg/dL 0.7-1.3 BUN/CREATININE RATIO (test code=BUN/CREA) 10-20 CALCIUM (test code=CA) mg/dL 8.5-10.1 [id number] 17:29:00* Test Item Value Reference Range Comments AMMONIA (test code=AMM) 44 umol/L 11-32 ACUTE HEPATITIS [id number] 06:13:00* Test Item Value Reference Range Comments AB HEPATITIS A IGM (test code=HAVMAB) Negative Negative AG HEPAT B SURF (test code=HBSAG) Negative Negative HEPATITIS B CORE ANTIBODY,IGM (test code=HBCMAB) Negative Negative AB HEPATITIS C (test code=HCVAB) >11.0 0.0-0.9 INFCE Result Units: s/co ratio Negative: < 0.8 Indeterminate: 0.8 - 0.9 Positive: > 0.9 The CDC recommends that a positive HCV antibody result be followed up with a HCV Nucleic Acid Amplification test ([id number]).Performed At: [facility] [address] [id number] Kyle L MD Ph:[phone] THYROID PROFILE [id number] 19:27:00* Test Item Value Reference Range Comments T3 UPTAKE (test code=T3UP) 37.0 % 30.0-40.0 T4 (THYROXINE) (test code=T4) 6.3 ug/dL 4.5-13.9 T7 (FREE THYROXINE INDEX) (test code=T7) 2.33 FTI 1.3-5.1 THYROID STIMULATING HORMONE (test code=TSH) 8.270 uIU/mL 0.36-3.74 TSH REFERENCE RANGES: EUTHYROID: 0.35 - 4.3 mIU/mL HYPO : > 5.5 mIU/mL HYPER : < 0.35 mIU/mL LIPID PROFILE (CORONARY RISK)[id number] 11:42:00* Test Item Value Reference Range Comments TRIGLYCERIDES (test code=TRIG) 73 mg/dL 20-150 CHOLESTEROL (test code=CHOL) 141 mg/dL 0-200 CHOLESTEROL/HDL RATIO (test code=CHOLHDL) 3.0 RATIO 0-4.9 RISK ASSOCIATED WITH CHOL/HDL RATIOS: Risk Male Female1/2 AVERAGE 3.43 3.27AVERAGE 4.97 4.442X AVERAGE 9.55 7.053X AVERAGE 23.39 11.04 REFERENCE VALUE IS RELATED TO RISK LEVELS ASRECOMMENDED BY THE [facility]RI[facility]. HEART, LUNG, AND BLOOD INST. HDL CHOLESTEROL (test code=HDL) 45 mg/dL 40-60 LIPOPROTEIN LDL (test code=LDL) 83 mg/dL 100-129 Reference Interval: mg/dL mmol/L Optimal <100 <2.6Near/above optimal 100-129 2.6- 3.3Borderline High 130-159 3.4-4.1High 160-189 4.1-4.9Very High >=190 >=4.9=========This LDL result is a direct measurement.========= VITAMIN [id number] 11:42:00* Test Item Value Reference Range Comments VITAMIN B12 (test code=VITB12) 990 pg/mL 193-986 THYROID STIMULATING [id number] 11:42:00* Test Item Value Reference Range Comments THYROID STIMULATING HORMONE (test code=TSH) 10.300 uIU/mL 0.36-3.74 TSH REFERENCE RANGES: EUTHYROID: 0.35 - 4.3 mIU/mL HYPO : > 5.5 mIU/mL HYPER : < 0.35 mIU/mL [id number] 10:48:00* Test Item Value Reference Range Comments AMMONIA (test code=AMM) 83 umol/L 11-32 URINALYSIS [id number] 02:24:00* Test Item Value Reference Range Comments UA COLOR (test code=COLU) YELLOW YELLOW UA APPEARANCE (test code=APPU) CLEAR CLEAR UA GLUCOSE DIPSTICK (test code=DGLUU) NEGATIVE mg/dL NEGATIVE UA BILIRUBIN DIPSTICK (test code=BILU) NEGATIVE mg/dL NEGATIVE UA KETONE DIPSTICK (test code=KETU) Negative mg/dL NEGATIVE UA SPECIFIC GRAVITY (test code=SGU) 1.008 1.001-1.035 UA BLOOD DIPSTICK (test code=MARIBETH) 3+ (Large) NEGATIVE UA PH DIPSTICK (test code=DAVID) 5.0 5.0-8.0 UA PROTEIN DIPSTICK (test code=PROU) Negative mg/dL NEGATIVE UA UROBILINIOGEN DIPSTICK (test code=URO) NEGATIVE mg/dL NEGATIVE UA NITRITE DIPSTICK (test code=PEPITO) NEGATIVE NEGATIVE UA LEUKOCYTE ESTERASE W REFLEX (test code=LEUUR) NEGATIVE NEGATIVE UA WBC (test code=WBCU) 0-5 #/HPF 0-5 UA RBC (test code=RBCU) 11-20 #/HPF 0-5 UA EPITHELIAL CELLS (test code=EPIU) FEW per HPF FEW UA BACTERIA (test code=BACU) FEW #/HPF NONE UA HYALINE CAST (test code=HYALU) 11-20 #/LPF 0-5 UA MUCUS (test code=MUCU) FEW #/LPF FEW Urine Source? Clean CatchURINALYSIS [id number] 02:21:00* Test Item Value Reference Range Comments UA COLOR (test code=COLU) YELLOW YELLOW UA APPEARANCE (test code=APPU) CLEAR CLEAR UA GLUCOSE DIPSTICK (test code=DGLUU) NEGATIVE mg/dL NEGATIVE UA BILIRUBIN DIPSTICK (test code=BILU) NEGATIVE mg/dL NEGATIVE UA KETONE DIPSTICK (test code=KETU) Negative mg/dL NEGATIVE UA SPECIFIC GRAVITY (test code=SGU) 1.008 1.001-1.035 UA BLOOD DIPSTICK (test code=MARIBETH) 3+ (Large) NEGATIVE UA PH DIPSTICK (test code=DAVID) 5.0 5.0-8.0 UA PROTEIN DIPSTICK (test code=PROU) Negative mg/dL NEGATIVE UA UROBILINIOGEN DIPSTICK (test code=URO) NEGATIVE mg/dL NEGATIVE UA NITRITE DIPSTICK (test code=PEPITO) NEGATIVE NEGATIVE UA LEUKOCYTE ESTERASE W REFLEX (test code=LEUUR) NEGATIVE NEGATIVE UA WBC (test code=WBCU) per HPF 0-5 Urine Source? Clean [id number] 00:36:00* Test Item Value Reference Range Comments MAGNESIUM (test code=MAG) 2.2 mg/dL 1.8-2.4 B-TYPE NATRIURETIC [id number] 00:31:00* Test Item Value Reference Range Comments B-TYPE NATRIURETIC PEPTIDE (test code=BNP) 116.23 pgram/mL 0-100 BASIC METABOLIC [id number] 23:41:00* Test Item Value Reference Range Comments SODIUM (test code=NA) 146 mmol/L 136-145 POTASSIUM (test code=K) 4.1 mmol/L 3.5-5.1 CHLORIDE (test code=CL) 114.0 mmol/L 98-107 CARBON DIOXIDE (test code=CO2) 25.0 mmol/L 21-32 ANION GAP (test code=GAP) 11.1 10-20 GLUCOSE (test code=GLU) 125 mg/dL 74-106 BLOOD UREA NITROGEN (test code=BUN) 22 mg/dL 7-18 GLOMERULAR FILTRATION RATE (test code=GFR) > 60 mL/min >=60 Estimated GFR by using Modified MDRD formula.Chronic kidney disease is defined as either kidney damageor GFR <60 mL/min/1.73 m2 for >3 months. CREATININE (test code=CREAT) 1.20 mg/dL 0.7-1.3 BUN/CREATININE RATIO (test code=BUN/CREA) 19.0 10-20 CALCIUM (test code=CA) 7.4 mg/dL 8.5-10.1 HEPATIC FUNCTION [id number] 23:41:00* Test Item Value Reference Range Comments TOTAL PROTEIN (test code=PROT) 4.2 gram/dL 6.4-8.2 ALBUMIN (test code=ALB) 1.2 g/dL 3.4-5.0 GLOBULIN (test code=GLOB) 3.0 gram/dL 2.7-4.2 ALBUMIN/GLOBULIN RATIO (test code=A/G) 0.4 0.75-1.50 BILIRUBIN TOTAL (test code=BILT) 3.40 mg/dL 0.0-1.0 BILIRUBIN DIRECT (test code=BILD) 1.48 mg/dL 0.0-0.20 SGOT/AST (test code=AST) 65 IUnit/L 15-37 SGPT/ALT (test code=ALT) 24 IUnit/L 12-78 ALKALINE PHOSPHATASE TOTAL (test code=ALKP) 102 IUnit/L 45-117 Note change in reference range due to change in reagent. [id number] 23:41:00* Test Item Value Reference Range Comments TROPONIN-I (test code=TROPI) 0.038 ng/mL 0-0.045 [id number] 23:41:00* Test Item Value Reference Range Comments ACETAMINOPHEN (test code=ACET) < 10 mcg/mL 10-30 A RANGE OF 10-30 mcg/mL IS A THERAPEUTIC RANGE. TOXIC CONCENTRATIONS: >150 mcg/mL AT 4 HOURS AFTER INGESTION >=50 mcg/mL AT 12 HOURS AFTER INGESTION [id number] 23:41:00* Test Item Value Reference Range Comments SALICYLATE (test code=JOSE E) < 1.7 mg/dL 2.8-20.0 [id number] 23:41:00* Test Item Value Reference Range Comments ALCOHOL (test code=ALC) 5 mg/dL 0.0-3.0 INTERPRETIVE DATA NOTE: POSITIVE SCREENING RESULTS SHOULD BE CONSIDERED PRESUMPTIVE.WHEN COLLECTED FOR MEDICAL PURPOSES ONLY. SPECIMEN WILL NOTBE COLLECTED BY CHAIN OF CUSTODY.IF A CONFIRMATION OF POSITIVE RESULTS IS DESIRED, ACONFIRMATION TEST MUST BE REQUESTED BY THE PHYSICIAN AT ANADDITIONAL CHARGE TO THE PATIENT. [id number] 23:34:00* Test Item Value Reference Range Comments AMMONIA (test code=AMM) 82 umol/L 11-32 BASIC METABOLIC [id number] 23:31:00* Test Item Value Reference Range Comments SODIUM (test code=NA) 146 mmol/L 136-145 POTASSIUM (test code=K) 4.1 mmol/L 3.5-5.1 CHLORIDE (test code=CL) 114.0 mmol/L 98-107 CARBON DIOXIDE (test code=CO2) mmol/L 21-32 ANION GAP (test code=GAP) 10-20 GLUCOSE (test code=GLU) mg/dL 74-106 BLOOD UREA NITROGEN (test code=BUN) mg/dL 7-18 GLOMERULAR FILTRATION RATE (test code=GFR) mL/min >=60 CREATININE (test code=CREAT) mg/dL 0.7-1.3 BUN/CREATININE RATIO (test code=BUN/CREA) 10-20 CALCIUM (test code=CA) mg/dL 8.5-10.1 HEPATIC FUNCTION [id number] 23:31:00* Test Item Value Reference Range Comments TOTAL PROTEIN (test code=PROT) gram/dL 6.4-8.2 ALBUMIN (test code=ALB) g/dL 3.4-5.0 GLOBULIN (test code=GLOB) gram/dL 2.7-4.2 ALBUMIN/GLOBULIN RATIO (test code=A/G) 0.75-1.50 BILIRUBIN TOTAL (test code=BILT) mg/dL 0.0-1.0 BILIRUBIN DIRECT (test code=BILD) mg/dL 0.0-0.20 SGOT/AST (test code=AST) IUnit/L 15-37 SGPT/ALT (test code=ALT) IUnit/L 12-78 ALKALINE PHOSPHATASE TOTAL (test code=ALKP) IUnit/L 45-117 [id number] 23:31:00* Test Item Value Reference Range Comments TROPONIN-I (test code=TROPI) ng/mL 0-0.045 [id number] 23:31:00* Test Item Value Reference Range Comments ACETAMINOPHEN (test code=ACET) mcg/mL 10-30 [id number] 23:31:00* Test Item Value Reference Range Comments SALICYLATE (test code=JOSE E) mg/dL 2.8-20.0 [id number] 23:31:00* Test Item Value Reference Range Comments ALCOHOL (test code=ALC) mg/dL 0-3 PROTHROMBIN [id number] 23:23:00* Test Item Value Reference Range Comments PROTHROMBIN TIME PATIENT (test code=PTP) 16.3 seconds 9.0-14.0 INTERNATIONAL NORMAL RATIO (test code=INR) 1.4 0.8-1.2 The therapeutic range for oral anticoagulant therapy formost indications is an international normalized ratio (INR)of between 2.0 and 3.0. The recommended therapeutic INRrange for various clinical situations is listed below: Clinical Situation INR range Pulmonary e mbolism treatment (2.0-3.0)Venous thrombosis treatmentVenous thrombosis prophylaxis (high risk surgery)Prevention of systemic embolism from: Acute myocardial infarction Valvular heart disease Atrial fibrillation Mechanical prosthetic heart valves (2.5-3.5) IS PATIENT ON ANTICOAGULANTS? NTHROMBOPLASTIN TIME [id number] 23:23:00* Test Item Value Reference Range Comments THROMBOPLASTIN TIME PARTIAL (test code=PTT) 37.7 seconds 25.0-36.5 IS PATIENT ON ANTICOAGULANTS? NCBC W/AUTO [id number] 23:04:00* Test Item Value Reference Range Comments WHITE BLOOD CELL (test code=WBC) 7.9 K/mm3 4.5-12.5 RED BLOOD CELL (test code=RBC) 3.65 mill/mm3 4.0-5.8 HEMOGLOBIN (test code=HGB) 12.3 gram/dL 13.0-17.5 HEMATOCRIT (test code=HCT) 35.8 % 42.0-52.0 MEAN CELL VOLUME (test code=MCV) 98.1 fL 80-98 MEAN CELL HGB (test code=MCH) 33.7 picogram 27.0-33.0 MEAN CELL HGB CONCETRATION (test code=MCHC) 34.4 gram/dL 33.0-36.0 RED CELL DISTRIBUTION WIDTH (test code=RDW) 14.0 % 11.6-16.2 RED CELL DISTRIBUTION WIDTH SD (test code=RDW-SD) 50.3 fL 37.0-51.0 PLATELET COUNT (test code=PLT) 135 K/mm3 150-450 MEAN PLATELET VOLUME (test code=MPV) 10.2 fL 6.7-11.0 NEUTROPHIL % (test code=NT%) 70.6 % 39.0-69.0 IMMATURE GRANULOCYTE % (test code=IG%) 0.4 % 0.0-5.0 LYMPHOCYTE % (test code=LY%) 14.5 % 25.0-55.0 MONOCYTE % (test code=MO%) 8.3 % 0.0-10.0 EOSINOPHIL % (test code=EO%) 5.2 % 0.0-5.0 BASOPHIL % (test code=BA%) 1.0 % 0.0-1.0 NUCLEATED RBC % (test code=NRBC%) 0.0 % 0-0 NEUTROPHIL # (test code=NT#) 5.54 K/mm3 1.8-7.7 IMMATURE GRANULOCYTE # (test code=IG#) 0.03 x10 3/uL 0-0.03 LYMPHOCYTE # (test code=LY#) 1.14 K/mm3 1.0-5.0 MONOCYTE # (test code=MO#) 0.65 K/mm3 0-0.8 EOSINOPHIL # (test code=EO#) 0.41 K/mm3 0.0-0.5 BASOPHIL # (test code=BA#) 0.08 K/mm3 0.0-0.2 NUCLEATED RBC # (test code=NRBC#) 0.00 K/mm3 0.0-0.1 MANUAL DIFF REQUIRED (test code=MDIFF) NO - XR CHEST 1 [id number] 22:00:00 FAX: Stewart Beck MD [phone] [place]: [address]: PRE Name: CHEYENNE WONG [facility] : [birth year] 54 Age/S: 62/M [place] Unit #: [id number] Loc: DARIEL Varma [address] Phys: Stewart Beck MD Acct: [id number] Dis Date: Status: PRE ER PHONE #: [phone] Exam Date: 07/21/[id number] FAX #: [phone] Reason: Altered Mental Status EXAMS: CPT CODE: [id number] XR CHEST 1 V [id number] EXAM: Chest x-ray, one view; INFORMATION: Altered mental status; FINDINGS: Lungs are clear; no infiltrates, no edema, no effusions, no pneumothorax. Aortic calcification; normal sized heart. IMPRESSION: No evidence of active cardiopulmonary disease. at 2200 Reported and signed by: Mart Estevez M.D. CC: Stewart Beck MD Technologist: RT TRUPTI(Yoana) Trnscrd Date/Time/By: 07/21/2018 (2199) : By: Tabby Orig Print D/ T: S: 07/21/2018 (2202) PAGE 1 Si gned Report
--- OUTSIDE RECORDS SUMMARY | 2018-09-23 17:38 | XMS REPORT | Summary of Care ---
Author Author Ml Del Toro, Danielle Organization Unknown Address Unknown Phone Unavailable Care Team Providers Care Tobacco Shaker Name Role Phone JEFFERSON Lopez, DEB Unavailable Unavailable MARCELINO Lopez, BRADY Unavailable Unavailable BRYANNA Lopez, MICHAEL Unavailable Unavailable Ml Del Toro, Danielle Unavailable Unavailable MILES N.P., MEHREEN Unavailable Unavailable JEFFERSON FRANCIS NM, DEB Unavailable Unavailable MJ FRANCIS NM, ADELINA Gloria Unavailable Unavailable DIAMANTE FRANCIS NM, ROSELYN Unavailable Unavailable Unavailable Unavailable Functional Status Name Dates Details Functional status health issues are not documented Status: Name Dates Details Cognitive status health issues are not documented Status: Problems Name Dates Details Esophageal varices (456.1, I85.00) Status: Active Portal hypertension (572.3, K76.6) Status: Active Dementia (294.20, F03.90) Status: Active Morbid obesity (278.01, E66.01) Status: Active Elevated TSH (794.5, R79.89) Status: Active Lumbar compression fracture (805.4, S32.000A) Status: Active Vitamin D deficiency (268.9, E55.9) Status: Active Follow up (V67.9, Z09) Status: Active Elevated glucose (790.29, R73.09) Status: Active HTN (hypertension) (401.9, I10) Status: Active Encounter to establish care (V65.8, Z76.89) Status: Active Bruise (924.9, T14.8XXA) Status: Active Liver cirrhosis (571.5, K74.60) Status: Active Needs flu shot (V04.81, Z23) Status: Active At risk for falling (V15.88, Z91.81) Status: Active Tremor (781.0, R25.1) Status: Active Weight gain (783.1, R63.5) Status: Active Wheezing (786.07, R06.2) Status: Active Abnormal chest CT (793.2, R93.89) Status: Active Depression (311, F32.9) Status: Active Pleural effusion, left (511.9, J90) Status: Active Community acquired bacterial pneumonia (482.9, J15.9) Status: Active Mediastinal lymphadenopathy (785.6, R59.0) Status: Active Chronic cough (786.2, R05) Status: Active Smoking (305.1, F17.200) Status: Active Medications Name Dates Details Omeprazole 40 MG Oral Capsule Delayed Release TAKE 1 CAPSULE Daily Take 45 min before eating Active Xifaxan 550 MG Oral Tablet TAKE TABLET TWICE DAILY * Refills: 0 Active Carafate 1 GM Oral Tablet TAKE 1 TABLET EVERY 4 HOURS PRN * Refills: 0 Active Vitamin D (Ergocalciferol) 82086 UNIT Oral Capsule TAKE 1 CAPSULE WEEKLY. * Quantity: 12 Refills: 0 MILES N.P.MEHREEN * Start : 12-Nov-2016 Active Generlac 10 GM/15ML Oral Solution TAKE 20 ML 3 TIMES DAILY * Refills: 0 * Start : 03-Feb-2017 Active Metoprolol Succinate ER 25 MG Oral Tablet Extended Release 24 Hour TAKE 1 TABLET ONCE DAILY. * Quantity: 1 Refills: 3 DEB PAULINO M.D. * Start : 03-Feb-2017 Active 90 Tablet Bottle Carbidopa-Levodopa 25-100 MG Oral Tablet TAKE 1 AND 1/2 TABLETS 2 TIMES DAILY. * Refills: 0 * Start : 03-Feb-2017 Active Lisinopril 5 MG Oral Tablet TAKE 1 TABLET DAILY. * Quantity: 1 Refills: 1 DEB PAULINO M.D. * Start : 29-Jul-2017 Active 90 Tablet Bottle Sertraline HCl - 25 MG Oral Tablet Take one and one half tabs at bedtime. * Quantity: 45 Refills: 3 BRADY BENSON M.D. * Start : 29-Jul-2017 Active Vitamin D (Ergocalciferol) 03578 UNIT Oral Capsule TAKE 1 CAPSULE WEEKLY. * Quantity: 12 Refills: 0 DEB PAULINO M.D. * Start : 30-Jul-2017 Active ProAir HFA 108 (90 Base) MCG/ACT Inhalation Aerosol Solution INHALE 1 TO 2 PUFFS EVERY 4 TO 6 HOURS NEEDED. * Quantity: 1 Refills: 1 DEB PAULINO M.D. * Start : 15-Sep-2017 Active 8.5 GM Inhaler levoFLOXacin 750 MG Oral Tablet TAKE 1 TABLET DAILY. * Quantity: 10 Refills: 0 KINGAH M.D., MICHAEL * Start : 15-Sep-2017 Active Spironolactone 25 MG Oral Tablet TAKE 1 TABLET TWICE DAILY. * Quantity: 60 Refills: 0 KINGAH M.D., MICHAEL * Start : 15-Sep-2017 Active Allergies and Adverse Reactions Name Dates Details No Known Drug Allergies (Allergy) Status: Active Past Medical History Name Dates Details History of cirrhosis (V12.79, Z87.19) Status: Resolved History of esophageal varices (V12.79, Z87.19) Status: Resolved History of hypertension (V12.59, Z86.79) Status: Resolved Procedures Procedure Dates Details History of Esophageal varices band ligation Completed Immunization Name Dates Details Fluzone Quadrivalent 0.5 ML Intramuscular Suspension Lot #: [id number] on: 28-Apr-2017 Family History Name Dates Details Family history of malignant neoplasm (V16.9, Z80.9) Status: Active Family history of asthma (V17.5, Z82.5) Status: Active Name Dates Details Family history of alcoholism (V17.0, Z81.1) Status: Active Social History Name Dates Details - Status: Name Dates Details Current every day smoker Never smoker Smoker. current status unknown Vital Signs Date Test Result Details No Known Vitals to report Results Date Description Value Details Results not documented Plan of Care Name Dates Details Planned Observations Planned Goals not documented Interventions Provided Discussion/Summary* Guideline Used: * Cyndee with [facility] wanting to know the name and contact information of the facility the PT was sent to after being discharged from the hospital. SHe refused to leave a contact number. * She states mother has called her and is concerned that the PT is not getting the care he should at the new facility. The number that was given by the mother is not a good number for the facility. * Intended Caller Action: * Other: speak with clinic staff Instructions Name Dates Details Instructions not documented Encounters Appointment; ROSELYN BOBBY Encounter Diagnosis: Problem not documented On: 19-Oct-2016 10:15 Appointment; DEB PAULINO M.D. Encounter Diagnosis: Problem not documented On: 04-Nov-2016 10:20 Appointment; DEB PAULINO M.D. Encounter Diagnosis: Problem not documented On: 03-Feb-2017 9:40 Appointment; DEB PAULINO M.D. Encounter Diagnosis: Problem not documented On: 28-Apr-2017 15:00 Appointment; ROSELYN BOBBY Encounter Diagnosis: Problem not documented On: 03-May-2017 10:30 Appointment; DEB PAULINO M.D. Encounter Diagnosis: Problem not documented On: 05-May-2017 9:40 Appointment; DEB PAULINO M.D. Encounter Diagnosis: Problem not documented On: 29-Jul-2017 8:40 Appointment; DEB PAULINO M.D. Encounter Diagnosis: Problem not documented On: 19-Aug-2017 8:00 Appointment; MICHAEL GOULD M.D. Encounter Diagnosis: Problem not documented On: 08-Sep-2017 13:20 Appointment; DEB PAULINO M.D. Encounter Diagnosis: Problem not documented On: 15-Sep-2017 9:00 Appointment; MICHAEL GOULD M.D. Encounter Diagnosis: Problem not documented On: 22-Sep-2017 16:00 Appointment; MICHAEL GOULD M.D. Encounter Diagnosis: Problem not documented On: 10-Nov-2017 13:20 Appointment; ROSELYN BOBBY Encounter Diagnosis: Problem not documented On: 24-Nov-2017 9:00 Appointment; BRADY BENSON M.D. Encounter Diagnosis: Problem not documented On: 03-Dec-2017 16:00 Appointment; ALBINO BAUMANN LCSW Encounter Diagnosis: Problem not documented On: 04-Jan-2018 9:00 Appointment; Lakeisha Hull Encounter Diagnosis: Problem not documented On: 14-Jan-2018 13:00 Appointment; ALBINO BAUMANN LCSW Encounter Diagnosis: Problem not documented On: 03-Feb-2018 14:00 Appointment; MICHAEL GOULD M.D. Encounter Diagnosis: Problem not documented On: 09-Feb-2018 13:00 Appointment; MICHAEL GOULD M.D. Encounter Diagnosis: Problem not documented On: 16-Feb-2018 14:00 Appointment; ALBINO BAUMANN LCSW Encounter Diagnosis: Problem not documented On: 24-Feb-2018 14:00 Appointment; Lakeisha Hull Encounter Diagnosis: Problem not documented On: 25-Feb-2018 13:00 Appointment; ALBINO BAUMANN LCSW Encounter Diagnosis: Problem not documented On: 17-Mar-2018 14:00 Appointment; Lakeisha Hull Encounter Diagnosis: Problem not documented On: 18-Mar-2018 13:00 Appointment; DEB PAULINO M.D. Encounter Diagnosis: Problem not documented On: 28-Mar-2018 13:20 Appointment; Lakeisha Hull Encounter Diagnosis: Problem not documented On: 08-Apr-2018 13:00 Appointment; Lakeisha Hull Encounter Diagnosis: Problem not documented On: 29-Apr-2018 13:00
[2018-09-23] MEDS ORDERED: ASPIRIN 81 MG CHEW TAB PO ONE (19:30)
--- NOTE | 2018-09-23 20:08 | Diagnostic Imaging Report ---
EXAMINATION: CHEST SINGLE (PORTABLE) COMPARISON: None INDICATION: UTI ^ams ^[id number] ^[id number] DISCUSSION: Frontal view of the chest obtained at 1935 hours. HEART AND MEDIASTINUM: The heart is top normal in size. The aorta is ectatic. Pulmonary vascular markings are prominent and indistinct LINES: None. LUNGS: Lung volumes are low. There is retrocardiac airspace opacity and haziness of the right lower lung zone. No interstitial thickening. PLEURA: No large effusions. No pneumothorax. BONES AND SOFT TISSUES: No focal osseous lesion. The soft tissues are normal. IMPRESSION: Pulmonary vascular congestion. Retrocardiac airspace opacity may be the result of atelectasis or infiltrate. Haziness of the right lung base may represent atelectasis or developing infiltrate. Signed by: Dr. Elbert Abarca MD on 09/23/2018 8:05 PM
--- NOTE | 2018-09-23 20:43 | Diagnostic Imaging Report ---
CT BRAIN WO HISTORY: Altered mental status COMPARISON: None. Technique: Noncontrast axial scans were obtained from skull base to the vertex. Coronal and sagittal reconstructions obtained from the axial data. One or more of the following dose reduction techniques were used: Automated exposure control, adjustment of the mA and/or kV according to patient size, and/or utilization of iterative reconstruction technique. Motion and beam hardening artifacts obscure some details. DISCUSSION: Scalp/Skull: Unremarkable. Brain sulci: Mildly prominent. Ventricles: Compensatory dilatation. Extra-axial spaces: No masses or fluid collections. Mild carotid siphon and vertebral artery calcifications are present. Parenchyma: Mild bilateral deep white matter hypodensity is likely chronic microvascular ischemic change. Otherwise, no masses, hemorrhage, or large vascular territory acute infarct. Dural sinuses: No abnormal densities. Sellar/Suprasellar region: Intact. Skull base: Intact. Incidental findings: Minimal left maxillary sinus mucosal thickening. IMPRESSION: 1. No acute intracranial abnormalities. 2. Mild supratentorial chronic microvascular ischemic change. Mild generalized cerebral volume loss. Signed by: Dr. Christian Stoll M.D. on 09/23/2018 8:39 PM
[2018-09-23 21:09] LABS: BASOPHILS % 0.5 % (0.0-1.0); EOSINOPHILS # (AUTO) 0.3 (0.0-0.4); EOSINOPHILS % 4.9 % (0.0-6.0); HEMOGLOBIN 7.6 g/dL (14.0-18.0); LYMPHOCYTES # (AUTO) 3.3 (1.0-3.2); LYMPHOCYTES % 52.8 % (18.0-39.1); MEAN CORPUSCULAR HEMOGLOBIN 30.3 pg (28-32); MEAN CORPUSCULAR HGB CONC 31.7 g/dL (31-35); MEAN CORPUSCULAR VOLUME 95.6 fL (81-99); MONOCYTES # (AUTO) 0.5 (0.2-0.8); MONOCYTES % 8.2 % (4.4-11.3); NEUTROPHILS # (AUTO) 2.1 (2.1-6.9); NEUTROPHILS % 33.1 % (38.7-80.0); PLATELET COUNT 100 x10e3/uL (140-360); RED BLOOD COUNT 2.51 x10e6/uL (4.3-5.7); RED CELL DISTRIBUTION WIDTH 17.7 % (11.7-14.4)
[2018-09-23 21:15] LABS: CLARITY,URINE SL CLOUDY (CLEAR); COLOR,URINE YELLOW (YELLOW); LEUKOCYTE ESTERASE ,URINE 2+ (NEGATIVE)
[2018-09-23 21:16] LABS: BILIRUBIN,URINE NEGATIVE (NEGATIVE); KETONES,URINE TRACE (NEGATIVE); NITRITE,URINE NEGATIVE (NEGATIVE); PROTEIN,URINE DIPSTICK 2+ (NEGATIVE); URINE UROBILINOGEN 0.2 mg/dL (0.2 - 1)
[2018-09-23 21:21] LABS: BACTERIA,URINE MANY /HPF; RBC,URINE 21-50 /HPF (0-5); WBC,URINE (MAN) >50 /HPF (0-5)
[2018-09-23 21:24] LABS: INR 2.15; PROTHROMBIN TIME 24.7 seconds (11.9-14.5)
[2018-09-23 21:26] LABS: ALBUMIN 1.3 g/dL (3.5-5.0); ALBUMIN/GLOBULIN RATIO 0.3 (0.8-2.0); ANION GAP 10.5 mmol/L (8-16); CALCIUM 8.1 mg/dL (8.4-10.2); CREATININE, SERUM 1.38 mg/dL (0.72-1.25); POTASSIUM 3.5 mmol/L (3.5-5.1)
[2018-09-23 21:35] LABS: CREATINE KINASE MB 5.4 ng/mL (0-5.0)
[2018-09-23] MEDS ORDERED: ONDANSETRON HCL INJ 2MG/ML 2ML 2 MG/ML VIAL IV PRN (22:45)
[2018-09-23] MEDS ORDERED: SODIUM CHLORIDE 0.45% 1,000 ML IV SCH (22:45)
[2018-09-24] VITALS (10 sets, daily range): BP systolic 130–169; BP diastolic 60–77
[2018-09-24] MEDS: PIPER-TAZ 3.375 GM 50 ML IV SCH ×4 (03:41→21:02)
[2018-09-24] MEDS ORDERED: ASPIRIN 81 MG CHEW TAB ONE (04:15)
--- NOTE | 2018-09-24 06:19 | NUR ---
Received patient from er via bed. AAOx1 but obeys some commands. No s/s of resp distress or pain. Has multiply skin tears to R arm, redness to groin, and buttocks. Has english patient, intact, and draining cloudy dark yellow urine. Has 1:1 sitter at bedside. Bed locked in lowest position, side rails up, and call richard within reach.
[2018-09-24 06:24] LABS: ALBUMIN 1.3 g/dL (3.5-5.0); ALBUMIN/GLOBULIN RATIO 0.3 (0.8-2.0); ANION GAP 10.5 mmol/L (8-16); CREATININE, SERUM 1.36 mg/dL (0.72-1.25); POTASSIUM 3.5 mmol/L (3.5-5.1)
[2018-09-24 06:49] LABS: CREATINE KINASE MB 5.9 ng/mL (0-5.0)
[2018-09-24] MEDS: ALBUTEROL SULF 0.083% NEB SOLN 3 ML NEB NEB SCH ×5 (07:00→23:22)
[2018-09-24] MEDS: IPRATROPIUM BROMIDE 0.02% 2.5 ML NEB NEB SCH ×3 (07:00→19:04)
[2018-09-24] MEDS ORDERED: ASCORBIC ACID500 MG PO (07:07)
[2018-09-24] MEDS ORDERED: FOLIC ACID1 MG PO (07:07)
[2018-09-24] MEDS ORDERED: LACTULOSE20 GM/30 M PO (07:07)
[2018-09-24] MEDS ORDERED: FAMOTIDINE20 MG PO (07:07)
[2018-09-24] MEDS ORDERED: DOCUSATE SODIU100 MG PO (07:07)
[2018-09-24 07:09] LABS: BASOPHILS % 0.6 % (0.0-1.0); EOSINOPHILS # (AUTO) 0.4 (0.0-0.4); EOSINOPHILS % 5.3 % (0.0-6.0); HEMATOCRIT 24.1 % (38.2-49.6); HEMOGLOBIN 7.7 g/dL (14.0-18.0); LYMPHOCYTES # (AUTO) 3.3 (1.0-3.2); LYMPHOCYTES % 49.6 % (18.0-39.1); MEAN CORPUSCULAR HEMOGLOBIN 30.3 pg (28-32); MEAN CORPUSCULAR VOLUME 94.9 fL (81-99); MONOCYTES # (AUTO) 0.7 (0.2-0.8); MONOCYTES % 10.5 % (4.4-11.3); NEUTROPHILS # (AUTO) 2.3 (2.1-6.9); NEUTROPHILS % 33.6 % (38.7-80.0); PLATELET COUNT 105 x10e3/uL (140-360); RED BLOOD COUNT 2.54 x10e6/uL (4.3-5.7); RED CELL DISTRIBUTION WIDTH 17.6 % (11.7-14.4)
[2018-09-24] MEDS ORDERED: THIAMINE H100 MG/1 M IV (07:13)
[2018-09-24] MEDS ORDERED: SEROQUEL25 MG PO (07:13)
[2018-09-24] MEDS ORDERED: SEROQUEL100 MG (07:13)
[2018-09-24] MEDS ORDERED: METOPROLOL TART25 MG PO (07:13)
[2018-09-24] MEDS ORDERED: ACETAMINOPHEN325 M1 PO (07:13)
[2018-09-24] MEDS ORDERED: MEGESTROL ACETA40 MG PO (07:13)
[2018-09-24] MEDS ORDERED: NEOMYCIN SULFA500 MG (07:13)
[2018-09-24] MEDS ORDERED: ULTRAM 50MG50 MG PO (07:20)
[2018-09-24] MEDS: LACTULOSE SYRUP 20 GM/30 ML UDC PO SCH ×3 (08:29→21:02)
--- NOTE | 2018-09-24 13:04 | NUR ---
Nutrition Screen Note RD Recommendation for Physician: DIRECTOR OF PUBLICATIONS consult Plan of Care: RD following, monitoring for adequacy and tolerance Nutrition reason for involvement: Nutrition Risk Trigger - MST Primary Diagnose(s):Altered mental status, anemia Ht:68 in Wt:269.56lbs BMI:41 kg/m2 IBW:154lbs RD Assessment:(09/24) Initial encounter with patient. Pt was not able to provide a nutrition Hx during the time of visit. Sitter in room. Pt with a hx of bleeding esophageal varices,dyphagia, and missing teeth. Pt will need an DIRECTOR OF PUBLICATIONS evaluation before starting po diet. Current Diet: NPO Malnutrition Evaluation (09/24) The patient does not meet criteria for a specified degree of malnutrition at this time. Will re-evaluate at follow-up as appropriate. Diet Education Needs Assessment: Diet education not indicated. Diet Adequacy: Not meeting protein needs Tolerance: NPO Nutrition Care Level:Kristian Dove RD, LD, CNSC
[2018-09-24] MEDS ORDERED: HYDRALAZINE HCL 20 MG/ML VIAL IV PRN (14:15)
[2018-09-24] MEDS ORDERED: ACETAMINOPHEN 325 MG TAB PO PRN (14:15)
[2018-09-24] MEDS: METOPROLOL TARTRATE 25 MG TAB PO SCH (15:46)
[2018-09-24] MEDS: DEXTROSE 5%/0.45% SOD CHL 1,000 ML IV SCH (15:46)
[2018-09-24 15:49] LABS: CREATINE KINASE MB 5.8 ng/mL (0-5.0)
[2018-09-24] MEDS: OYST-CAL-D 500MG TABLET PO SCH (16:46)
[2018-09-24] MEDS: MEGESTROL ACETATE 40 MG TAB PO SCH (16:46)
[2018-09-24] MEDS: ASCORBIC ACID 500 MG TAB PO SCH (16:46)
--- NOTE | 2018-09-24 19:00 | NUR ---
Received patient awake on bed confused, not in distress, with ongoing IVF, english catheter in place, 1:1 sitter at the bedside. Will continue to monitor closely.
[2018-09-24] MEDS: QUETIAPINE FUMARATE 100 MG TAB PO SCH (21:02)
[2018-09-25] VITALS (8 sets, daily range): BP systolic 135–160; BP diastolic 68–82
[2018-09-25] MEDS: IPRATROPIUM BROMIDE 0.02% 2.5 ML NEB NEB SCH ×4 (01:00→19:00)
[2018-09-25] MEDS: METOPROLOL TARTRATE 25 MG TAB PO SCH ×2 (03:00→17:06)
[2018-09-25 03:20] LABS: BASOPHILS % 0.6 % (0.0-1.0); EOSINOPHILS # (AUTO) 0.4 (0.0-0.4); EOSINOPHILS % 7.8 % (0.0-6.0); HEMATOCRIT 21.3 % (38.2-49.6); LYMPHOCYTES % 40.8 % (18.0-39.1); MEAN CORPUSCULAR HEMOGLOBIN 30.8 pg (28-32); MEAN CORPUSCULAR HGB CONC 32.4 g/dL (31-35); MEAN CORPUSCULAR VOLUME 95.1 fL (81-99); MONOCYTES # (AUTO) 0.5 (0.2-0.8); MONOCYTES % 9.6 % (4.4-11.3); NEUTROPHILS % 40.8 % (38.7-80.0); PLATELET COUNT 89 x10e3/uL (140-360); RED BLOOD COUNT 2.24 x10e6/uL (4.3-5.7); RED CELL DISTRIBUTION WIDTH 17.6 % (11.7-14.4)
[2018-09-25 03:28] LABS: HEMOGLOBIN 6.9 g/dL (14.0-18.0)
[2018-09-25 03:48] LABS: B-TYPE NATRIURETIC PEPTIDE2 1579.4 pg/mL (0-100)
[2018-09-25 03:50] LABS: ANION GAP 9.2 mmol/L (8-16); CALCIUM 7.9 mg/dL (8.4-10.2); CREATININE, SERUM 1.43 mg/dL (0.72-1.25); POTASSIUM 3.2 mmol/L (3.5-5.1)
[2018-09-25 04:00] LABS: FERRITIN 316.38 ng/mL (21.81-274.66); FREE T4 (FREE THYROXINE) 0.66 ng/dL (0.9-1.8); THYROID STIMULATING HORMONE 8.829 uIU/mL (0.350-4.940)
--- NOTE | 2018-09-25 04:12 | NUR ---
paged Lizbeth MURPHY to relay latest lab results, left a VM, awaiting call back
[2018-09-25 04:37] LABS: FOLATE 14.7 ng/mL (7.0-15.4)
[2018-09-25] MEDS: DEXTROSE 5%/0.45% SOD CHL 1,000 ML IV SCH (05:11)
[2018-09-25] MEDS: PIPER-TAZ 3.375 GM 50 ML IV SCH (05:11)
[2018-09-25] MEDS: ALBUTEROL SULF 0.083% NEB SOLN 3 ML NEB NEB SCH ×2 (06:31→10:00)
--- NOTE | 2018-09-25 06:59 | NUR ---
Spoke to Lizbeth stephen Hgb level and K level, with orders to transfuse 2 units PRBC and 40 meq KCL po x 1, communicated with incoming nurse
[2018-09-25] MEDS ORDERED: SODIUM CHLORIDE 0.9% 250ML 250 ML IV ONE (07:00)
[2018-09-25] MEDS ORDERED: POTASSIUM CHLORIDE 20 MEQ TAB CR PO ONE (07:30)
[2018-09-25] MEDS: FOLIC ACID 1 MG TAB PO SCH (08:22)
[2018-09-25] MEDS: LACTULOSE SYRUP 20 GM/30 ML UDC PO SCH ×3 (08:22→17:09)
[2018-09-25] MEDS: QUETIAPINE FUMARATE 25 MG TAB PO SCH (08:23)
[2018-09-25] MEDS: OYST-CAL-D 500MG TABLET PO SCH ×2 (08:23→17:06)
[2018-09-25] MEDS: MEGESTROL ACETATE 40 MG TAB PO SCH ×2 (08:23→17:06)
[2018-09-25] MEDS: FAMOTIDINE 20 MG TAB PO SCH (08:23)
[2018-09-25] MEDS: ASCORBIC ACID 500 MG TAB PO SCH ×2 (08:23→17:06)
[2018-09-25] MEDS ORDERED: DEXTROSE 5% 500ML 500 ML IV SCH (11:15)
[2018-09-25] MEDS ORDERED: HYDROCHLOROTHIAZIDE 25 MG TAB PO ONE (11:30)
[2018-09-25] MEDS: ALBUTEROL/IPRATROPIUM 3 ML NEB NEB SCH ×2 (11:54→19:50)
[2018-09-25] MEDS ORDERED: GUAIFENESIN 600 MG TAB PO SCH (12:00)
[2018-09-25] MEDS: CEFTRIAXONE SOD 1 GM/NS 50 ML 50 ML IV SCH (12:07)
[2018-09-25] MEDS: AZITHROMYCIN 500MG/NS 250 ML 250 ML IV SCH (12:08)
[2018-09-25] MEDS ORDERED: SODIUM CHLORIDE 0.45% 1,000 ML IV ONE (12:30)
--- NOTE | 2018-09-25 13:30 | NUR ---
Pt complain of itching and nausea as azithromycin was running. Stopped infusion and notified attending. Received orders to discontinue azithromycin, give one time IVP benadryl 12.5mg and zosyn 4mg IVP was also administered. Addendum: 09/28/18 at 1925 by Tammie Daniels RN wrong chart
--- NOTE | 2018-09-25 16:00 | NUR ---
Dr. Malvin Nunez called at this time and gave orders to transfuse two jumbo platelets. Transfusion to be done tonight in case EGD is needed to be done tomorrow.
[2018-09-25] MEDS: RIFAXIMIN 550 MG TABLET PO SCH (17:06)
--- NOTE | 2018-09-25 19:49 | Consultation ---
DATE OF CONSULTATION: Pulmonary Critical Care Consultation CHIEF COMPLAINT: Confusion and history of liver disease. HISTORY OF PRESENT ILLNESS: The patient is a 62-year-old man. He has a history of cirrhosis. Apparently, he has been more confused over the past several days. He has not had any fever. There has been no chest pain or cough. He is not complaining of abdominal pain or diarrhea. PAST MEDICAL HISTORY: 1. History of cirrhosis. 2. Hypothyroidism. PAST SURGICAL HISTORY: Noncontributory. FAMILY HISTORY: Noncontributory. SOCIAL HISTORY: The patient has not been a drinker in many years. ALLERGIES: THERE ARE NO KNOWN DRUG ALLERGIES. REVIEW OF SYSTEMS: He has no fever. He has no headache. He has no neck pain. He has no sore throat. He has no chest pain. He does have some dyspnea. There is some mild abdominal swelling and possible ascites. He has some mild leg edema. PHYSICAL EXAMINATION: VITAL SIGNS: The patient is afebrile. The blood pressure is 156/82 and the saturation is 98%. Pulse is 78. HEENT: Shows no facial swelling or erythema. The oropharynx is normal. LYMPHATIC: Shows no submandibular, cervical, or supraclavicular adenopathy. CARDIAC: Reveals a regular rate and rhythm with normal S1, S2. There are no murmurs or rubs. LUNGS: Auscultation of lungs reveals rhonchorous breath sounds bilaterally. There is no wheezing. ABDOMEN: Soft, nontender. There is no rebound or guarding. EXTREMITIES: Show 1 to 2+ leg edema. LABORATORY DATA: Urinalysis shows some red blood cells and greater than 50 white blood cells. The sodium is 150, and the BUN to creatinine ratio is 23 to 1.49. The white blood cell count is 4.98 and the hemoglobin is 6.9. The platelet count is 89. RADIOGRAPHIC DATA: Chest x-ray shows a retrocardiac airspace opacity, possibly suggestive of pneumonia. IMPRESSION: 1. Hepatic encephalopathy secondary to longstanding liver disease. 2. Anemia from chronic blood loss. 3. Thrombocytopenia. 4. Hypernatremia. 5. Renal insufficiency. 6. Right lower lobe pneumonia. PLAN: 1. The patient will receive packed RBCs followed by diuretics. 2. Continue lactulose along with rifaximin for hepatic encephalopathy. 3. Continue current antibiotics. 4. Abdominal ultrasound. 5. Continue to monitor urine output and renal function. MD TAWANNA Sen/MEL /[id number]
[2018-09-25] MEDS ORDERED: ASPIRIN 81 MG CHEW TAB PO ONE (21:15)
[2018-09-25] MEDS: QUETIAPINE FUMARATE 100 MG TAB PO SCH (21:28)
[2018-09-25] MEDS ORDERED: SODIUM CHLORIDE 0.9% 250ML 250 ML ONE (21:43)
--- NOTE | 2018-09-25 21:45 | NUR ---
BLOOD TRANSFUSION ADMINISTERED. VITAL SIGN STABLE AT THIS TIME. VERIFIED WITH 2ND RN. CONTINUE TO MONITOR CLOSELY
--- NOTE | 2018-09-25 22:31 | NUR ---
Received patient awake on bed confused, no acute distress noted, english catheter in place, 1:1 sitter at the bedside. Will continue to monitor closely.
[2018-09-26] MEDS: LACTULOSE SYRUP 20 GM/30 ML UDC PO SCH ×4 (00:17→17:25)
[2018-09-26] MEDS: IPRATROPIUM BROMIDE 0.02% 2.5 ML NEB NEB SCH ×4 (01:00→19:00)
[2018-09-26] MEDS: ALBUTEROL/IPRATROPIUM 3 ML NEB NEB SCH ×4 (01:00→19:00)
[2018-09-26] MEDS ORDERED: SODIUM CHLORIDE 0.9% 250ML 250 ML ONE ×2 (01:08→03:04)
--- NOTE | 2018-09-26 01:15 | NUR ---
administers 1st unit of platelet. vital sign stable at this time. verified with 2nd RN
--- NOTE | 2018-09-26 01:45 | NUR ---
Dr Nunez ordered 2 jumbo bags of FFP. No further platelet transfusion need to be given at this time. Spoke to lab
--- NOTE | 2018-09-26 01:47 | NUR ---
round patient with Dr Nunez. Dr Nunez order 2 jumbo FFP. cancel platelet order. Notified lab Addendum: 09/26/18 at 0324 by Mirian Fritz RN error charting
[2018-09-26] MEDS: METOPROLOL TARTRATE 25 MG TAB PO SCH ×2 (01:49→14:15)
[2018-09-26] MEDS ORDERED: SODIUM CHLORIDE 0.45% 1,000 ML IV ONE (02:00)
--- NOTE | 2018-09-26 03:00 | NUR ---
1st bag of FFP given. vital sign stable. verified with 2nd nurse
--- NOTE | 2018-09-26 03:47 | NUR ---
patient has been agitated, kicking and hitting staffs. spoke to Lizbeth. New order received for Ativan 0.5mg IV Q6h PRN
[2018-09-26] MEDS: LORAZEPAM INJ 2 MG/ML VIAL IV PRN ×2 (03:55→14:21)
[2018-09-26 05:18] LABS: BASOPHILS % 0.6 % (0.0-1.0); EOSINOPHILS # (AUTO) 0.7 (0.0-0.4); EOSINOPHILS % 13.8 % (0.0-6.0); HEMOGLOBIN 8.3 g/dL (14.0-18.0); LYMPHOCYTES # (AUTO) 1.9 (1.0-3.2); LYMPHOCYTES % 36.9 % (18.0-39.1); MEAN CORPUSCULAR HEMOGLOBIN 29.6 pg (28-32); MEAN CORPUSCULAR HGB CONC 31.9 g/dL (31-35); MEAN CORPUSCULAR VOLUME 92.9 fL (81-99); MONOCYTES # (AUTO) 0.5 (0.2-0.8); NEUTROPHILS % 39.1 % (38.7-80.0); PLATELET COUNT 83 x10e3/uL (140-360); RED CELL DISTRIBUTION WIDTH 18.9 % (11.7-14.4)
[2018-09-26 05:40] LABS: ALBUMIN 1.5 g/dL (3.5-5.0); ANION GAP 9.6 mmol/L (8-16); BILIRUBIN,DIRECT 1.6 mg/dL (0.0-0.5); CALCIUM 8.1 mg/dL (8.4-10.2); CREATININE, SERUM 1.41 mg/dL (0.72-1.25); MAGNESIUM 1.5 MG/DL (1.3-2.1); POTASSIUM 3.6 mmol/L (3.5-5.1)
--- NOTE | 2018-09-26 05:45 | NUR ---
2nd bag of FFP given. vital sign stable. verified with 2nd nurse
[2018-09-26 05:51] LABS: B-TYPE NATRIURETIC PEPTIDE2 1269.7 pg/mL (0-100)
[2018-09-26] MEDS: LEVOTHYROXINE SODIUM 25 MCG TABLET PO SCH (06:00)
--- NOTE | 2018-09-26 07:10 | NUR ---
RCD PT AT BED PT IS CONFUSED AND AGITATED 1;1 SITTER WITH PT MCMAHON DRAINING BY GRAVITY IV PATENT AND RUNNING 75 ML /HR BED LOW AND LOCKED CALL LIGHT IN REACH
[2018-09-26 07:20] VITALS: BP 160/82
[2018-09-26 09:00] VITALS: BP 160/82
[2018-09-26] MEDS: QUETIAPINE FUMARATE 25 MG TAB PO SCH (09:00)
[2018-09-26] MEDS: GUAIFENESIN 600MG/DEXTROMETHORPHAN 30MG TABSR PO SCH ×2 (09:00→17:00)
[2018-09-26] MEDS: FOLIC ACID 1 MG TAB PO SCH (09:00)
[2018-09-26] MEDS: MEGESTROL ACETATE 40 MG TAB PO SCH ×2 (09:00→17:00)
[2018-09-26] MEDS: OYST-CAL-D 500MG TABLET PO SCH ×2 (09:00→17:00)
[2018-09-26] MEDS: RIFAXIMIN 550 MG TABLET PO SCH ×2 (09:00→17:00)
[2018-09-26] MEDS: ASCORBIC ACID 500 MG TAB PO SCH ×2 (09:00→17:00)
[2018-09-26] MEDS: SPIRONOLACTONE 25 MG TAB PO SCH (09:00)
[2018-09-26] MEDS: FAMOTIDINE 20 MG TAB PO SCH (09:00)
[2018-09-26] MEDS: CEFTRIAXONE SOD 1 GM/NS 50 ML 50 ML IV SCH (11:30)
--- NOTE | 2018-09-26 11:32 | NUR ---
SPEECH RECOMMENDED MBS PAGED ISABEL TO NOTIFY THAT AND LEFT THE MESSAGE
[2018-09-26 11:46] VITALS: BP 148/84
[2018-09-26] MEDS: AZITHROMYCIN 500MG/NS 250 ML 250 ML IV SCH (12:00)
[2018-09-26] MEDS ORDERED: DEXTROSE 5% 1,000 ML IV SCH (12:00)
--- NOTE | 2018-09-26 12:27 | NUR ---
ISABEL MURPHY RETURNED CALL AND GOT THE ORDER TO MBS
[2018-09-26 14:54] VITALS: BP 156/80
--- NOTE | 2018-09-26 15:12 | NUR ---
ST NOTE: Attempted MBS, pt recently given sedative for agitation to complete scan procedure in room. Pt now too lethargic to complete MBS, will schedule for 09/27/18 in AM. Handoff to CINDY Hein and Stephanie, radiology lead tech
--- NOTE | 2018-09-26 15:48 | Progress Note ---
DATE: 09/26/2018 Pulmonary Critical Care Progress Note SUBJECTIVE: The patient is slightly less confused today. He is awaiting an ultrasound of his abdomen. There are no fevers. PHYSICAL EXAMINATION: VITAL SIGNS: The patient is afebrile. The vital signs are stable. HEENT: Shows no facial swelling or erythema. CARDIAC: Reveals regular rate and rhythm with normal S1 and S2. LUNGS: Auscultation of lungs reveals decreased breath sounds at the bases. There is no wheezing. ABDOMEN: Soft and nontender. There is no rebound or guarding. EXTREMITIES: Show 1 to 2+ leg edema. IMPRESSION: 1. Cirrhosis with hepatic encephalopathy. 2. Hyponatremia. 3. Hepatorenal syndrome type 2. 4. Anemia, unspecified. 5. Thrombocytopenia. 6. Community-acquired pneumonia. PLAN: 1. Continue current antibiotics. Hopefully, the patient can stop the Zithromax if the urine antigen for legionella is negative. 2. Continue rifaximin and lactulose for hepatic encephalopathy. 3. Continue to monitor blood counts after receiving packed red blood cells. 4. Continue to monitor creatinine and sodium. Tin Carlson MD [facility]/MODL /[id number]
--- NOTE | 2018-09-26 15:48 | Diagnostic Imaging Report ---
EXAM: Right upper quadrant abdominal ultrasound INDICATION: History of cirrhosis, query mass. COMPARISON: None. TECHNIQUE: Transverse and longitudinal images of the right upper quadrant abdomen were obtained FINDINGS: Exam is substantially limited as the patient was combative and with altered mental status, therefore the exam could not be completed despite sedation. Liver: Size: 14.3 cm in the right midclavicular line, nodular in contour. A 0.9 cm anechoic lesion is present within the left lobe of the liver. Limited evaluation for solid mass as the exam was terminated. Gallbladder: Cannot be evaluated. Negative reported sonographic Bean's sign. Bile Ducts: Not evaluated. Pancreas: Partially visualized portions are unremarkable. Tail is not well-visualized. Kidney: Not evaluated. Vessels: Aorta: Not well evaluated. Inferior Vena Cava: Unremarkable in appearance. Main Portal Vein: Not evaluated. Free Fluid: No evidence of ascites. IMPRESSION: Exam terminated early as the patient was combative and altered mental status. Suggest repeat ultrasound when clinically able. Cirrhotic morphology of liver. A 0.9 cm likely simple appearing cyst within the left lobe of liver. Limited evaluation for solid mass as the exam was terminated. Signed by: Dr. Amada Finley MD on 09/26/2018 3:44 PM
--- NOTE | 2018-09-26 16:00 | NUR ---
WOUND CARE CONSULTATION- INITIAL EVALUATION Patient admitted from [place] to ER for recent falls and AMS. DX: AMS, Anemia, Chronic Disease, Hepatic Encephalopathy, Cirrhosis. HX: Hepatic Encephalopathy, Cirrhosis. WBC5.01 HGB8.3 HCT26 Neut%39 HbA1c%3.6 Alb1.5 - Wound Care Consulted for evaluation of bilateral gluteal/ Sacral ulcers. PATIENT VISIT: Patient confused with sitter at bedside. Patient flaring arms, restless. Able to follow simple commands and requires constant redirection. Diapered Ramone Score 12 Moderate PUP Active HOB elevated 15 degrees. Bed to lowest position. Turned patient with 2 person assist. presents with moderate linear scar tissue to bilateral sacrogluteal areas. No Bleeding, No redness. No open skin. Appears to be stable. Ischeal Areas intact. Sacral area intact. IMPRESSION: Bilateral Sacrogluteal Areas- Healing Stage II Pressure Ulcers - Present On Admission RECOMMENDATION: 1. Sacrogluteal Area- Healing Stage II PU - Cleanse area with mild soap and water then pat dry thoroughly - Apply Ismael Cream PRN Soiling and cover with Allevyn Foam Dressing qShift. 2. Turn and Reposition every 2 hours 3. HOB no greater than 30 degrees 4. Bilateral Heel Protectors/ Offload Heels with pillows while in bed. Thank you for consulting with Wound Care. Addendum: 09/26/18 at 1612 by Yao Lilly RN Amended: Links added.
--- NOTE | 2018-09-26 17:00 | NUR ---
heel protector on both heel
[2018-09-26 17:08] VITALS: BP 156/80
--- NOTE | 2018-09-26 18:39 | NUR ---
PT RESTING ON BED BED SIDE REPORT GIVEN TO ONCOMING NURSE
--- NOTE | 2018-09-26 19:29 | Consultation ---
DATE OF CONSULTATION: Nephrology Consultation Note REASON FOR CONSULTATION: Hypernatremia and kidney injury on CKD. HISTORY OF PRESENT ILLNESS: This is a 62-year-old male with multiple comorbidities, of note has liver cirrhosis and hypothyroidism, recently was at [facility], sent to [facility], now back to [facility] due to worsening confusion over the last several days. There is no report of any cough, congestion, or any fever. Nephrology was consulted due to underlying dehydration, hypernatremia, and acute kidney injury. The patient was evaluated at bedside. He is very confused. I am unable to obtain any information from the patient. All information has been obtained from the prior H and P and nursing staff. REVIEW OF SYSTEMS: Unable to obtain as the patient is currently confused. ALLERGIES: NO KNOWN DRUG ALLERGIES. HOME MEDICATION: Lactulose 30 g p.o. t.i.d., tramadol, ascorbic acid, famotidine, folic acid, Megace, metoprolol, quetiapine. PAST MEDICAL HISTORY: History of liver cirrhosis, alcoholic, hypothyroidism. PAST SURGICAL HISTORY: None. FAMILY HISTORY: Hypertensin and diabetes. SOCIAL HISTORY: He was a drinker in the past, but has not been drinking recently. No drugs. No smoking. PHYSICAL EXAMINATION: VITAL SIGNS: Temperature is 98.9, pulse 85, respiratory rate 16, blood pressure 148/84, pulse ox 98% on room air. GENERAL: No acute distress. Alert and oriented x3. Cooperative on examination. HEENT: Head is normocephalic, atraumatic. Eyes; pupils equal, round and reactive to light bilaterally. Extraocular movements are intact bilaterally. Throat; no evidence of erythema or exudates in the posterior pharynx. Has poor dentition. NECK: Supple. Good range of motion throughout. PULMONARY: Clear to auscultation bilaterally. No wheezing, rales or rhonchi. No crackles appreciated. CARDIOVASCULAR: Positive S1, S2. No murmurs, rubs, or gallops appreciated. ABDOMEN: Soft, nondistended, nontender to palpation. Bowel sounds present. MUSCULOSKELETAL: Unable to assess, currently confused. NEUROLOGIC: Unable to assess, currently confused. SKIN: Intact. Warm to touch. Good cap refill. PSYCHIATRIC: Confused. EXTREMITIES: No edema. Good range of motion throughout. LAB FINDINGS: Show white count 5, hemoglobin 8.3, hematocrit 26, platelets of 83. Chemistry, sodium of 141, potassium 2.6, chloride 123, bicarb 21, anion gap of 19, BUN 18, creatinine 1.41, calcium 8.1, hemoglobin A1c is 3.6, iron saturation 95%, likely an error. LFTs, total bilirubin is 3.3, direct bilirubin 1.6, AST , ALT 31. Ammonia level is 104, within normal range. Albumin is 1.5. Alpha fetoprotein is pending. Vitamin B12 of 1482. Urinalysis concerning for UTI. Urine culture was negative for any growth. IMAGING STUDIES: CT brain found to be negative. IMPRESSION: 1. Hypovolemic, hypotonic hyponatremia secondary to dehydration. 2. Acute on chronic kidney disease stage 3. 3. Electrolyte abnormalities. 4. Metabolic encephalopathy due to underlying liver cirrhosis. PLAN: At this time change IV fluids to D5W at 100 mL/h for 2 total L. Replace the electrolytes. Monitor creatinine and kidney function. Renally dose all medications. Avoid nephrotoxic agents. Repeat labs in the morning. Otherwise, we will continue same plan of care and monitor very closely. Thank you so much for this consultation. We will continue to follow with you. MD MIGUEL ANGEL Bray/MEL /[id number]
[2018-09-26 20:07] VITALS: BP 164/93
[2018-09-26] MEDS ORDERED: ZINC OXIDE / BALSAM PERU 30 GM TUBE TOP SCH (21:00)
[2018-09-26] MEDS: QUETIAPINE FUMARATE 100 MG TAB PO SCH (21:00)
[2018-09-27] VITALS (8 sets, daily range): BP systolic 130–176; BP diastolic 59–87
[2018-09-27] MEDS: LACTULOSE SYRUP 20 GM/30 ML UDC PO SCH ×4 (00:11→16:52)
--- NOTE | 2018-09-27 00:40 | NUR ---
PT NOTED TO BE WHEEZING AND SHORT OF BREATH,SPO2 87% ON ROOM AIR,O2 APPLIED 2 LPM VIA NC.SPO2 NOTED 90-93%.NOTIFIED RT ARABELLA FOR BREATHING TX.RT AT BEDSIDE AT THIS TIME ADMINISTERING TX.
[2018-09-27] MEDS: ALBUTEROL/IPRATROPIUM 3 ML NEB NEB SCH ×4 (01:10→19:05)
[2018-09-27] MEDS: IPRATROPIUM BROMIDE 0.02% 2.5 ML NEB NEB SCH ×4 (01:10→19:00)
--- NOTE | 2018-09-27 01:58 | NUR ---
CALL PLACED TO DR KIRAN SPOKE WITH ZENY MURPHY.NOTIFIED ABOUT PT BEING SHORT OF BREATH AND WHEEZING.NEW ORDERS RECEIVED.
[2018-09-27] MEDS: METOPROLOL TARTRATE 25 MG TAB PO SCH ×2 (02:38→14:00)
[2018-09-27 02:48] LABS: ABG HCO3 18 mmol/L (23-28); ABG PCO2 27 mmHg (41-51); ABG PH 7.44 (7.31-7.41); ABG PO2 73 mmHg (80-105)
[2018-09-27 03:00] LABS: BASOPHILS # (AUTO) 0.1 (0.0-0.1); BASOPHILS % 0.7 % (0.0-1.0); EOSINOPHILS # (AUTO) 0.5 (0.0-0.4); EOSINOPHILS % 5.7 % (0.0-6.0); HEMATOCRIT 29.3 % (38.2-49.6); HEMOGLOBIN 9.6 g/dL (14.0-18.0); LYMPHOCYTES # (AUTO) 1.9 (1.0-3.2); LYMPHOCYTES % 20.6 % (18.0-39.1); MEAN CORPUSCULAR HEMOGLOBIN 30.2 pg (28-32); MEAN CORPUSCULAR HGB CONC 32.8 g/dL (31-35); MEAN CORPUSCULAR VOLUME 92.1 fL (81-99); MONOCYTES # (AUTO) 0.9 (0.2-0.8); MONOCYTES % 9.1 % (4.4-11.3); NEUTROPHILS # (AUTO) 5.9 (2.1-6.9); NEUTROPHILS % 62.4 % (38.7-80.0); PLATELET COUNT 69 x10e3/uL (140-360); RED BLOOD COUNT 3.18 x10e6/uL (4.3-5.7); RED CELL DISTRIBUTION WIDTH 18.9 % (11.7-14.4)
[2018-09-27 03:19] LABS: ALANINE AMINOTRANSFERASE 32 IU/L (0-55); ALBUMIN 1.7 g/dL (3.5-5.0); ALBUMIN/GLOBULIN RATIO 0.4 (0.8-2.0); ALKALINE PHOSPHATASE 91 IU/L (40-150); ANION GAP 9.6 mmol/L (8-16); BLOOD UREA NITROGEN 17 mg/dL (7-26); BUN/CREATININE RATIO 15 (6-25); CALCIUM 8.5 mg/dL (8.4-10.2); CARBON DIOXIDE 19 mmol/L (22-29); CHLORIDE 118 mmol/L (98-107); CREATININE, SERUM 1.12 mg/dL (0.72-1.25); EST GLOMERULAR FILTRATION RATE > 60 ML/MIN (60-); GLUCOSE 113 mg/dL (74-118); POTASSIUM 3.6 mmol/L (3.5-5.1); SODIUM 143 mmol/L (136-145)
--- NOTE | 2018-09-27 03:19 | Diagnostic Imaging Report ---
Examination: Single AP view of the chest. COMPARISON: None. INDICATION: Wheezing, shortness of breath DISCUSSION: Lines/tubes: None. Lungs: Pulmonary venous congestion. Pleura: Possible small left effusion. Heart and mediastinum: Mild cardiomegaly Bones and soft tissues: No acute bony abnormalities. IMPRESSION: Mild cardiomegaly with pulmonary venous congestion Signed by: Dr. Dwight Sefl M.D. on 09/27/2018 3:16 AM
[2018-09-27] MEDS: LEVOTHYROXINE SODIUM 25 MCG TABLET PO SCH (06:13)
--- NOTE | 2018-09-27 06:58 | NUR ---
REPORT GIVEN TO ONCOMING NURSE.WALKING ROUNDS DONE.PT RESTING IN BED O2 AT 2 LPM ON VIA NC.SPO2 100%. NO S/S OF ACUTE DISTRESS NOTED AT THIS TIME.1:1 SITTER AT BEDSIDE.
--- NOTE | 2018-09-27 07:00 | NUR ---
RCD PT AT BED PT IS CONFUSED AND AGITATED 1;1 SITTER WITH PT MCMAHON DRAINING BY GRAVITY IV PATENT AND RUNNING 75 ML /HRGETTING O2 2L BY NC BED LOW AND LOCKED CALL LIGHT IN REACH
[2018-09-27] MEDS: QUETIAPINE FUMARATE 25 MG TAB PO SCH (08:58)
[2018-09-27] MEDS: GUAIFENESIN 600MG/DEXTROMETHORPHAN 30MG TABSR PO SCH ×2 (08:58→16:51)
[2018-09-27] MEDS: SPIRONOLACTONE 25 MG TAB PO SCH (08:58)
[2018-09-27] MEDS: FAMOTIDINE 20 MG TAB PO SCH (08:58)
[2018-09-27] MEDS: MEGESTROL ACETATE 40 MG TAB PO SCH ×2 (08:58→16:51)
[2018-09-27] MEDS: FOLIC ACID 1 MG TAB PO SCH (08:58)
[2018-09-27] MEDS: OYST-CAL-D 500MG TABLET PO SCH ×2 (08:58→16:51)
[2018-09-27] MEDS: RIFAXIMIN 550 MG TABLET PO SCH ×2 (08:59→17:00)
[2018-09-27] MEDS: ASCORBIC ACID 500 MG TAB PO SCH ×2 (08:59→16:51)
[2018-09-27] MEDS ORDERED: FUROSEMIDE INJ 10 MG/ML 4 ML VIAL IV ONE (09:00)
[2018-09-27] MEDS: ZINC OXIDE / BALSAM PERU 30 GM TUBE TOP SCH ×2 (09:00→21:31)
--- NOTE | 2018-09-27 09:30 | NUR ---
MBS DONE AT BED SIDE
[2018-09-27] MEDS: CEFTRIAXONE SOD 1 GM/NS 50 ML 50 ML IV SCH (11:30)
[2018-09-27] MEDS: AZITHROMYCIN 500MG/NS 250 ML 250 ML IV SCH (11:41)
--- NOTE | 2018-09-27 11:56 | NUR ---
Spoke with KATHERINE Nieves regarding discharge plan. She said anticipating discharge in 2-4 days. Informed her that if plan is to return to SNF, we would need to restart auth and it may take 2-3 days for insurance. Received order for SNF eval. CM placed call to pt's family Jerri Clinton ([phone] & [phone]) to discuss discharge plan. She did not respond. Left for callback.
--- NOTE | 2018-09-27 12:37 | Diagnostic Imaging Report ---
EXAM: Modified barium swallow INDICATION: Dysphagia COMPARISON: None FINDINGS: This examination was conducted in conjunction with speech pathologist. Patient was given, by mouth, liquids and solids of various consistencies. Premature spillage to vallecula was seen with thick and thin puree texture. Laryngeal penetration was noted with thin liquids using large straw sip. Silent aspiration during the swallow was seen with large straw sips thin. Fluoro time: 2.0 minutes IMPRESSION: <Mild pharyngeal dysphagia with silent aspiration of thin liquids during the swallow. Please see speech pathology report for detailed description and recommendations.> Signed by: Dr. Juan Luis Steve M.D. on 09/27/2018 12:32 PM
--- NOTE | 2018-09-27 18:13 | Progress Note ---
DATE: SUBJECTIVE: The patient is still confused. He remains on nasal cannula. He has no fevers. OBJECTIVE: VITAL SIGNS: The blood pressure is 145/72 and the pulse is 86. Saturation is 96% on 2 L. HEENT: Shows no facial swelling or erythema. The nasal mucosa is normal. The oropharynx is normal. LYMPHATIC: Shows no submandibular, cervical, or supraclavicular adenopathy. CARDIAC: Reveals regular rate and rhythm with normal S1 and S2. There are no murmurs or rubs heard. LUNGS: Auscultation of lungs reveals clear breath sounds bilaterally. There is no wheezing. ABDOMEN: Soft, nontender. There is no rebound or guarding. IMPRESSION: 1. Cirrhosis with hepatic encephalopathy. 2. Hyponatremia. 3. Hepatorenal syndrome, type 2. 4. Anemia, unspecified. 5. Community-acquired pneumonia. 6. Thrombocytopenia. PLAN: 1. Continue current antibiotics. 2. Continue rifaximin and lactulose for hepatic encephalopathy. 3. Continue to monitor creatinine and sodium. 4. Continue to monitor blood counts. 5. Long-term prognosis is poor. Tin Carlson MD [facility]/MODL /[id number]
--- NOTE | 2018-09-27 18:46 | NUR ---
PT RESTING ON BED BED SIDE REPORT GIVEN TO ONCOMING NURSE
--- NOTE | 2018-09-27 18:53 | Progress Note ---
DATE: 09/27/2018 Nephrology Progress Note SUBJECTIVE: The patient is still confused on examination. Sodium has improved. He does have good urine output. PHYSICAL EXAMINATION: VITAL SIGNS: Temperature 98.2, pulse 86, respiratory rate 20, blood pressure 145/72, pulse ox 98% on 2 L nasal cannula. GENERAL: Not in acute distress. Alert and oriented x3. Cooperative on examination. He is confused. HEENT: Head is normocephalic and atraumatic. Eyes; pupils are equal, round, and reactive to light bilaterally. Extraocular movements are intact bilaterally. Throat, no evidence of erythema or exudates in the posterior pharynx. Has poor dentition. NECK: Supple. Good range of motion. PULMONARY: Clear to auscultation bilaterally. No wheezing, no rales, no rhonchi, no crackles appreciated. CARDIOVASCULAR: Positive S1, S2. No murmurs, rubs, or gallops appreciated. ABDOMEN: Soft, nondistended, and nontender to palpation. Bowel sounds present. MUSCULOSKELETAL: Strength is 5/5 throughout. No evidence of any muscle deficits on examination. No weakness appreciated. NEUROLOGICAL: He is confused on exam. SKIN: Intact. Warm to touch. Good cap refill. PSYCHIATRIC: Normal affect. EXTREMITIES: No edema. Good range of motion throughout. LABORATORY DATA: Lab findings show white count 9.4, hemoglobin 9.3, hematocrit 29, and platelets of 69. Chemistry; sodium is 143, potassium 3.6, chloride 118, bicarb 19, anion gap of 9.6, BUN 17, creatinine 1.1, glucose is 113, calcium is 8.5, total bilirubin is 3.8, AST is 65, ALT 32, alkaline phosphatase is 91. Ammonia level is 86. BNP is 2510. MICROBIOLOGY: None. IMPRESSION: 1. Hypovolemic hypotonic hypernatremia secondary to dehydration, now resolved. 2. Acute kidney injury on chronic kidney disease stage 3, improved. 3. Electrolyte abnormalities. 4. Metabolic encephalopathy secondary to the alcoholic liver cirrhosis. PLAN: At this time, his sodium has improved. Currently is going to be off fluids. His electrolytes are stable and reviewed. His creatinine improved as well. We will avoid nephrotoxic agent. Repeat labs in the morning. Discussed the case with nursing staff. Monitor sodium level very closely. MD MIGUEL ANGEL Bray/MEL /[id number]
[2018-09-27] MEDS: QUETIAPINE FUMARATE 100 MG TAB PO SCH (21:30)
[2018-09-28] VITALS (8 sets, daily range): BP systolic 118–158; BP diastolic 68–74
[2018-09-28] MEDS: LACTULOSE SYRUP 20 GM/30 ML UDC PO SCH ×4 (00:15→17:00)
[2018-09-28] MEDS: IPRATROPIUM BROMIDE 0.02% 2.5 ML NEB NEB SCH ×4 (01:00→19:00)
--- NOTE | 2018-09-28 01:28 | NUR ---
DR Malvin PALAFOX IN UNIT ROUNDED ON PT AT THIS TIME.NO NEW ORDERS RECEIVED.
[2018-09-28] MEDS: ALBUTEROL/IPRATROPIUM 3 ML NEB NEB SCH ×4 (02:30→20:00)
[2018-09-28] MEDS: METOPROLOL TARTRATE 25 MG TAB PO SCH ×2 (03:00→16:00)
[2018-09-28 05:10] LABS: BASOPHILS # (AUTO) 0.1 (0.0-0.1); BASOPHILS % 0.9 % (0.0-1.0); EOSINOPHILS # (AUTO) 0.4 (0.0-0.4); HEMATOCRIT 25.6 % (38.2-49.6); HEMOGLOBIN 8.1 g/dL (14.0-18.0); LYMPHOCYTES # (AUTO) 1.9 (1.0-3.2); LYMPHOCYTES % 36.3 % (18.0-39.1); MEAN CORPUSCULAR HGB CONC 31.6 g/dL (31-35); MEAN CORPUSCULAR VOLUME 94.8 fL (81-99); MONOCYTES # (AUTO) 0.5 (0.2-0.8); MONOCYTES % 9.5 % (4.4-11.3); NEUTROPHILS # (AUTO) 2.4 (2.1-6.9); RED CELL DISTRIBUTION WIDTH 18.5 % (11.7-14.4)
[2018-09-28 05:13] LABS: PLATELET COUNT 50 x10e3/uL (140-360)
[2018-09-28 05:42] LABS: ANION GAP 7.5 mmol/L (8-16); BLOOD UREA NITROGEN 20 mg/dL (7-26); BUN/CREATININE RATIO 18 (6-25); CALCIUM 8.2 mg/dL (8.4-10.2); CARBON DIOXIDE 23 mmol/L (22-29); CHLORIDE 122 mmol/L (98-107); EST GLOMERULAR FILTRATION RATE > 60 ML/MIN (60-); GLUCOSE 99 mg/dL (74-118); MAGNESIUM 1.4 MG/DL (1.3-2.1); POTASSIUM 3.5 mmol/L (3.5-5.1); SODIUM 149 mmol/L (136-145)
[2018-09-28] MEDS: LEVOTHYROXINE SODIUM 25 MCG TABLET PO SCH (05:50)
[2018-09-28 05:55] LABS: B-TYPE NATRIURETIC PEPTIDE2 2160.4 pg/mL (0-100)
--- NOTE | 2018-09-28 06:18 | NUR ---
PT'S 20G IV TO LEFT WRIST NOTED INFILTRATED.CATH TIP NOTED INTACT UPON REMOVAL.PRESSURE DRESSING APPLIED.1:1 SITTER AT BEDSIDE.BED IN LOWEST/LOCKED POSITION.WILL CONTINUE TO MONITOR.
[2018-09-28 06:39] LABS: ALBUMIN 1.4 g/dL (3.5-5.0); BILIRUBIN,DIRECT 1.5 mg/dL (0.0-0.5)
--- NOTE | 2018-09-28 07:17 | NUR ---
REPORT GIVEN TO ONCOMING NURSE,WALKING ROUNDS MADE.PT RESTING IN BED WITH NO S/S OF DISTRESS.1:1 SITTER AT BEDSIDE.
--- NOTE | 2018-09-28 09:35 | NUR ---
Patient took PO am medications without any difficulty. Alert x 2 at this time. He has no complaints and denies needing anything at this time. Amaro catheter is draining without any problems. call light in reach, bed alarm on.
[2018-09-28] MEDS: GUAIFENESIN 600MG/DEXTROMETHORPHAN 30MG TABSR PO SCH ×2 (09:44→16:32)
[2018-09-28] MEDS: FOLIC ACID 1 MG TAB PO SCH (09:44)
[2018-09-28] MEDS: MEGESTROL ACETATE 40 MG TAB PO SCH ×2 (09:44→16:32)
[2018-09-28] MEDS: OYST-CAL-D 500MG TABLET PO SCH ×2 (09:44→16:32)
[2018-09-28] MEDS: ZINC OXIDE / BALSAM PERU 30 GM TUBE TOP SCH ×2 (09:45→21:00)
[2018-09-28] MEDS: RIFAXIMIN 550 MG TABLET PO SCH ×2 (09:45→16:32)
[2018-09-28] MEDS: SPIRONOLACTONE 25 MG TAB PO SCH (09:45)
[2018-09-28] MEDS: ASCORBIC ACID 500 MG TAB PO SCH ×2 (09:45→16:32)
[2018-09-28] MEDS: FAMOTIDINE 20 MG TAB PO SCH (09:45)
[2018-09-28] MEDS: CEFTRIAXONE SOD 1 GM/NS 50 ML 50 ML IV SCH (10:30)
[2018-09-28] MEDS: AZITHROMYCIN 500MG/NS 250 ML 250 ML IV SCH (12:30)
[2018-09-28] MEDS: QUETIAPINE FUMARATE 25 MG TAB PO SCH (12:31)
--- NOTE | 2018-09-28 12:49 | NUR ---
[employer] SIGNATURE FOR [facility] REP PICKED UP CLINICALS TO RETURN PATIENT.
[2018-09-28] MEDS ORDERED: DEXTROSE 5% 1,000 ML IV SCH (17:00)
--- NOTE | 2018-09-28 18:10 | Progress Note ---
DATE: 09/28/2018 Pulmonary Critical Care Progress Note SUBJECTIVE: The patient is somnolent and has been sleeping much of the day. He is not febrile. PHYSICAL EXAMINATION: VITAL SIGNS: The blood pressure is 151/70 and the pulse is 76. Respiratory rate is 19 and saturation is 98% on 2 L. HEENT: Shows no facial swelling or erythema. CARDIAC: Reveals a regular rate and rhythm with a normal S1 and S2. There are no murmurs or rubs. LUNGS: Auscultation of lungs reveals decreased breath sounds bilaterally. There is no wheezing. ABDOMEN: Soft, nontender. There is no rebound or guarding. EXTREMITIES: Show no leg edema or calf tenderness. LABORATORY DATA: The BUN to creatinine ratio is 20:1.1 and the sodium is 149. The other electrolytes are within normal limits. The albumin is 1.4. IMPRESSION: 1. Cirrhosis with hepatic encephalopathy. 2. Hepatorenal syndrome type 2. 3. Anemia, unspecified. 4. Community-acquired pneumonia. 5. Thrombocytopenia. PLAN: 1. Continue current antibiotics. 2. Continue rifaximin and lactulose. 3. Continue to monitor creatinine and sodium. 4. Arrange for disposition. Tin Carlson MD [facility]/JAMIEL /[id number]
--- NOTE | 2018-09-28 20:09 | Progress Note ---
DATE: 09/28/2018 Nephrology Progress Note SUBJECTIVE: The patient . He is much more alert today on examination, is oriented x2. PHYSICAL EXAMINATION: VITAL SIGNS: Temperature 98.1, pulse 76, respiratory rate 19, blood pressure 151/70, pulse ox 98% on 2 L nasal cannula. GENERAL: Not in acute distress. Alert and oriented x2. Cooperative on examination. HEENT: Head is normocephalic and atraumatic. Eyes; pupils are equal, round, and reactive to light bilaterally. Extraocular movements are intact bilaterally. Throat, no evidence of erythema or exudates in the posterior pharynx. Has poor dentition. NECK: Supple. Good range of motion. PULMONARY: Clear to auscultation bilaterally. No wheezing, no rales, no rhonchi, no crackles appreciated. CARDIOVASCULAR: Positive S1, S2. No murmurs, rubs, or gallops appreciated. ABDOMEN: Soft, nondistended, and nontender to palpation. Bowel sounds present. MUSCULOSKELETAL: Strength is 5/5 throughout. No evidence of any muscle deficits on examination. No weakness appreciated. NEUROLOGICAL: Cranial nerves 2 through 12 grossly intact. No evidence of any neurological deficits on exam. SKIN: Intact. Warm to touch. Good cap refill. PSYCHIATRIC: Normal affect and mood. EXTREMITIES: No edema. Good range of motion throughout. LABORATORY FINDINGS: Show white count 5.3, hemoglobin 8.2, hematocrit 25, platelets of 50. Chemistry; sodium 149, potassium is 3.5, chloride is 1.2, bicarb 23, anion gap 10.5, BUN is 20, creatinine is 1.1, calcium is 8.2, magnesium 1.4. AST is 41, ALT 22, alkaline phosphatase 74, total bilirubin 2.3, albumin is 1.4. BNP 2160. Urine culture was found to be negative. IMPRESSION: 1. Hypovolemic hypotonic hypernatremia secondary to dehydration, now elevated sodium level. 2. Acute kidney injury on chronic kidney disease stage 3, improved. 3. Electrolyte abnormalities. 4. Mild encephalopathy secondary to alcoholic liver cirrhosis. 5. Thrombocytopenia. PLAN: At this time, add D5W at 75 mL/h in 1 L total. The patient is not drinking enough fluids. His electrolytes are stable. Get a.m. labs. Avoid nephrotoxic agents. We will monitor very closely. MD MIGUEL ANGEL Bray/MEL /[id number]
[2018-09-28] MEDS: QUETIAPINE FUMARATE 100 MG TAB PO SCH (22:06)
[2018-09-29] VITALS (8 sets, daily range): BP systolic 119–176; BP diastolic 62–80
[2018-09-29] MEDS: LACTULOSE SYRUP 20 GM/30 ML UDC PO SCH ×4 (00:53→17:30)
[2018-09-29] MEDS: IPRATROPIUM BROMIDE 0.02% 2.5 ML NEB NEB SCH ×4 (01:00→19:00)
[2018-09-29] MEDS: ALBUTEROL/IPRATROPIUM 3 ML NEB NEB SCH ×4 (01:30→19:00)
[2018-09-29] MEDS: METOPROLOL TARTRATE 25 MG TAB PO SCH ×2 (03:40→15:00)
[2018-09-29 04:59] LABS: BASOPHILS # (AUTO) 0.1 (0.0-0.1); BASOPHILS % 1.1 % (0.0-1.0); EOSINOPHILS # (AUTO) 0.5 (0.0-0.4); EOSINOPHILS % 9.2 % (0.0-6.0); HEMATOCRIT 26.4 % (38.2-49.6); HEMOGLOBIN 8.4 g/dL (14.0-18.0); LYMPHOCYTES % 37.2 % (18.0-39.1); MEAN CORPUSCULAR HEMOGLOBIN 29.8 pg (28-32); MEAN CORPUSCULAR HGB CONC 31.8 g/dL (31-35); MEAN CORPUSCULAR VOLUME 93.6 fL (81-99); MONOCYTES # (AUTO) 0.5 (0.2-0.8); MONOCYTES % 9.9 % (4.4-11.3); NEUTROPHILS # (AUTO) 2.3 (2.1-6.9); NEUTROPHILS % 41.5 % (38.7-80.0); PLATELET COUNT 62 x10e3/uL (140-360); RED BLOOD COUNT 2.82 x10e6/uL (4.3-5.7); RED CELL DISTRIBUTION WIDTH 18.4 % (11.7-14.4)
[2018-09-29 05:20] LABS: ALANINE AMINOTRANSFERASE 19 IU/L (0-55); ALBUMIN 1.3 g/dL (3.5-5.0); ALKALINE PHOSPHATASE 79 IU/L (40-150); BILIRUBIN,DIRECT 1.3 mg/dL (0.0-0.5); BLOOD UREA NITROGEN 19 mg/dL (7-26); BUN/CREATININE RATIO 16 (6-25); CALCIUM 8.2 mg/dL (8.4-10.2); CARBON DIOXIDE 24 mmol/L (22-29); CHLORIDE 120 mmol/L (98-107); EST GLOMERULAR FILTRATION RATE > 60 ML/MIN (60-); GLUCOSE 109 mg/dL (74-118); MAGNESIUM 1.6 MG/DL (1.3-2.1); POTASSIUM 3.8 mmol/L (3.5-5.1); SODIUM 145 mmol/L (136-145)
[2018-09-29 05:24] LABS: ANION GAP 4.8 mmol/L (8-16)
[2018-09-29] MEDS: LEVOTHYROXINE SODIUM 25 MCG TABLET PO SCH (06:06)
[2018-09-29] MEDS ORDERED: SODIUM CHLORIDE 0.9% 50ML 50 ML ONE (09:39)
[2018-09-29] MEDS: OYST-CAL-D 500MG TABLET PO SCH ×2 (10:00→17:30)
[2018-09-29] MEDS: RIFAXIMIN 550 MG TABLET PO SCH ×2 (10:00→17:30)
[2018-09-29] MEDS: FOLIC ACID 1 MG TAB PO SCH (10:00)
[2018-09-29] MEDS: MEGESTROL ACETATE 40 MG TAB PO SCH ×2 (10:00→17:30)
[2018-09-29] MEDS: SPIRONOLACTONE 25 MG TAB PO SCH (10:00)
[2018-09-29] MEDS: FAMOTIDINE 20 MG TAB PO SCH (10:00)
[2018-09-29] MEDS: ZINC OXIDE / BALSAM PERU 30 GM TUBE TOP SCH ×2 (10:00→21:00)
[2018-09-29] MEDS: ASCORBIC ACID 500 MG TAB PO SCH ×2 (10:00→17:30)
[2018-09-29] MEDS: QUETIAPINE FUMARATE 25 MG TAB PO SCH (10:00)
[2018-09-29] MEDS: GUAIFENESIN 600MG/DEXTROMETHORPHAN 30MG TABSR PO SCH ×2 (10:00→17:30)
[2018-09-29] MEDS: CEFTRIAXONE SOD 1 GM/NS 50 ML 50 ML IV SCH (11:00)
[2018-09-29] MEDS: AZITHROMYCIN 500MG/NS 250 ML 250 ML IV SCH (13:00)
--- NOTE | 2018-09-29 14:11 | NUR ---
CM called and spoke with pt's daughter Jerri Clinton at [phone]. Informed her of discharge plan. Possible discharge to [facility] tomorrow. Discussed Medicare Rights letter. Ms. Clinton verbalized understanding. Telephone acknowledgement received. CINDY Abreu witnessed and cosigned IMM form. Signed copy placed in chart. HANNA informed Ms. Clinton that copy will be placed at bedside.
--- NOTE | 2018-09-29 15:29 | Consultation ---
DATE OF CONSULTATION: 09/29/2018 Thank you, Dr. Posey for this consultation. REASON FOR CONSULTATION: Pancytopenia and anemia. HISTORY OF PRESENT ILLNESS: A 63-year-old gentleman with a past medical history includes chronic liver disease, likely because of chronic history of alcoholism in the past, history of hypothyroidism, admitted through emergency room with worsening confusion for the last few days. The patient was fatigue and tired. He is not a good historian. Mostly history obtained form medical chart. At admission, workup shows severe anemia and pancytopenia. The patient also has renal insufficiency. The patient's hemoglobin was 6.9 with a platelet count of 59. 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 Initial impression was hepatic encephalopathy, pneumonia, renal insufficiency, anemia, and thrombocytopenia. The patient required blood transfusion. He had persistent thrombocytopenia with no active evidence of any bleeding. The patient's hemoglobin stays the better when his kidney function completely improve. PAST MEDICAL HISTORY: Liver cirrhosis, hypothyroidism. PAST SURGICAL HISTORY: Noncontributory. FAMILY HISTORY: Reviewed, nonrelevant. SOCIAL HISTORY: The patient has history of alcoholism, but recently he is sober. ALLERGIES: NKDA. MEDICATIONS: List reviewed. REVIEW OF SYSTEMS: Could not obtain because of patient's mental status. PHYSICAL EXAMINATION: GENERAL: The patient is alert, awake, slightly confused. HEENT: Normocephalic and atraumatic. Sclerae pale. Conjunctivae clear. NECK: Supple. CHEST: Decreased breath sounds in bases. CARDIOVASCULAR: Regular rate and rhythm. ABDOMEN: Soft. EXTREMITIES: No edema. LABORATORY AND IMAGING DATA: Reviewed. ASSESSMENT AND PLAN: The patient with history of multiple medical conditions, pancytopenia. The patient has chronic liver disease with from liver and includes destruction of white cell and platelets through the spleen count is low, but no evidence of any acute bleeding, clinically condition is stable. Continue folic acid. Continue remaining care. Try to avoid medication. We will follow the patient closely. Anemia, multifactorial. The patient require blood transfusion. Hemoglobin is stable. Continue current care. Try to avoid frequent blood outpatient followup. The patient already had anemia workup, which was consistent with anemia of chronic disease. We will follow the patient. MD CATERINA Villalba/MEL /[id number]
[2018-09-29] MEDS ORDERED: ONDANSETRON HCL 4 MG ORAL DISINTEGRATING TAB PO PRN (15:45)
--- NOTE | 2018-09-29 16:31 | Diagnostic Imaging Report ---
EXAMINATION: CHEST SINGLE (PORTABLE) INDICATION: Fever. Altered mental status ^Fever COMPARISON: 09/27/2018 FINDINGS: TUBES and LINES: None. LUNGS: Lungs are well inflated. Perihilar peribronchial hazy opacity could be due to bronchitis. There is no evidence of pneumonia or pulmonary edema. PLEURA: No pleural effusion or pneumothorax. HEART AND MEDIASTINUM: Cardiomegaly with pulmonary vascular congestion. BONES AND SOFT TISSUES: No acute osseous lesion. Soft tissues are unremarkable. UPPER ABDOMEN: No free air under the diaphragm. IMPRESSION: Perihilar peribronchial hazy opacity could be due to bronchitis. Cardiomegaly with pulmonary vascular congestion. Signed by: Dr. Jer Vernon M.D. on 09/29/2018 4:28 PM
--- NOTE | 2018-09-29 16:49 | Progress Note ---
DATE: 09/29/2018 Nephrology Progress Note SUBJECTIVE: The patient is seen at bedside. He is alert, awake, but he is still confused on exam from the hepatic encephalopathy. No overnight events. LABORATORY DATA: White count 5.4, hemoglobin 8.4, hematocrit 26, platelets of 62. Chemistry; sodium 145, potassium 3.8, chloride 120, bicarb 24, anion gap of 4.8, BUN 19, creatinine 1.2, glucose is 109, calcium is 8.2, magnesium is 1.6. Microbiology; none. OBJECTIVE: VITAL SIGNS: Temperature is 97.8, pulse is 77, respiratory rate is 18, blood pressure is 150/71, pulse ox 97% on 2 L nasal cannula. GENERAL: Not in acute distress. Alert and oriented x3. Cooperative on examination. HEENT: Head is normocephalic and atraumatic. Eyes; pupils are equal, round, and reactive to light bilaterally. Extraocular movements are intact bilaterally. Throat, no evidence of erythema or exudates in the posterior pharynx. Has poor dentition. NECK: Supple. Good range of motion. PULMONARY: Clear to auscultation bilaterally. No wheezing, no rales, no rhonchi, no crackles appreciated. CARDIOVASCULAR: Positive S1, S2. No murmurs, rubs, or gallops appreciated. ABDOMEN: Soft, nondistended, and nontender to palpation. Bowel sounds present. MUSCULOSKELETAL: Strength is 5/5 throughout. No evidence of any muscle deficits on examination. No weakness appreciated. NEUROLOGICAL: Cranial nerves 2 through 12 grossly intact. No evidence of any neurological deficits on exam. SKIN: Intact. Warm to touch. Good cap refill. PSYCHIATRIC: Normal affect and mood. EXTREMITIES: No edema. Good range of motion throughout. IMPRESSION: 1. Hypovolemic hypotonic hypernatremia now after D5W. 2. Acute kidney injury on chronic kidney disease, stage 3. 3. Electrolyte abnormalities. 4. Mild encephalopathy secondary to alcoholic liver cirrhosis. 5. Thrombocytopenia. PLAN: At this time, still encourage oral fluid free water intake. His labs were reviewed and stable. Avoid nephrotoxic agents. We will continue to monitor very closely. We will get a.m. labs and monitor electrolytes. Jiries S Dahu, MD [facility]/MEL /[id number]
--- NOTE | 2018-09-29 16:55 | Progress Note ---
DATE: 09/29/2018 Pulmonary Critical Care Progress Note SUBJECTIVE: The patient is more awake, but is still confused. He had a temperature to 100 today. PHYSICAL EXAMINATION: VITAL SIGNS: The blood pressure is 151/70 and the saturation is 97% on 2 L. The pulse is 82. Respiratory rate is 20. HEENT: Shows no facial swelling or erythema. CARDIAC: Reveals a regular rate and rhythm with a normal S1 and S2. LUNGS: Auscultation of lungs reveals rhonchorous breath sounds bilaterally. There is no wheezing. ABDOMEN: Soft, nontender. There is no rebound or guarding. EXTREMITIES: Show 2+ leg edema bilaterally. MICROBIOLOGICAL DATA: Shows negative urinalysis. IMPRESSION: 1. Cirrhosis with hepatic encephalopathy. 2. Fever. 3. Community-acquired pneumonia. 4. Anemia, unspecified. 5. Thrombocytopenia. PLAN: 1. Repeat chest x-ray. 2. Repeat cultures. 3. Consider paracentesis. 4. Continue to monitor creatinine and sodium. 5. Continue treatment for hepatic encephalopathy. Tin Carlson MD [facility]/MODL /[id number]
--- NOTE | 2018-09-29 19:15 | NUR ---
Patient received lying in bed. AAO x 2. Patient had no complaints of pain. 2L NC in place. Respirations even and non-labored. Amaro catheter draining dark phil urine. Fall precautions implemented. Patient instructed to call for assistance when needed. Call light within reach.
[2018-09-29] MEDS: QUETIAPINE FUMARATE 100 MG TAB PO SCH (22:00)
[2018-09-30 00:05] VITALS: BP 120/67
[2018-09-30] MEDS: LACTULOSE SYRUP 20 GM/30 ML UDC PO SCH ×3 (00:20→12:00)
[2018-09-30] MEDS: IPRATROPIUM BROMIDE 0.02% 2.5 ML NEB NEB SCH ×3 (01:00→13:00)
[2018-09-30] MEDS: METOPROLOL TARTRATE 25 MG TAB PO SCH ×2 (02:33→14:15)
[2018-09-30 04:50] VITALS: BP 128/73
[2018-09-30] MEDS: LEVOTHYROXINE SODIUM 25 MCG TABLET PO SCH (05:44)
[2018-09-30] MEDS: ALBUTEROL/IPRATROPIUM 3 ML NEB NEB SCH ×3 (07:00→13:00)
--- NOTE | 2018-09-30 07:00 | NUR ---
Walking rounds done. Shift report given to oncoming nurse.
[2018-09-30 08:08] VITALS: BP 128/73
[2018-09-30 08:12] LABS: BASOPHILS % 0.8 % (0.0-1.0); EOSINOPHILS # (AUTO) 0.4 (0.0-0.4); HEMATOCRIT 27.5 % (38.2-49.6); HEMOGLOBIN 8.6 g/dL (14.0-18.0); LYMPHOCYTES # (AUTO) 2.3 (1.0-3.2); LYMPHOCYTES % 43.2 % (18.0-39.1); MEAN CORPUSCULAR HEMOGLOBIN 29.8 pg (28-32); MEAN CORPUSCULAR HGB CONC 31.3 g/dL (31-35); MEAN CORPUSCULAR VOLUME 95.2 fL (81-99); MONOCYTES # (AUTO) 0.5 (0.2-0.8); NEUTROPHILS % 38.4 % (38.7-80.0); PLATELET COUNT 69 x10e3/uL (140-360); RED BLOOD COUNT 2.89 x10e6/uL (4.3-5.7); RED CELL DISTRIBUTION WIDTH 18.2 % (11.7-14.4)
[2018-09-30 08:35] LABS: ALBUMIN 1.3 g/dL (3.5-5.0); CALCIUM 8.2 mg/dL (8.4-10.2); CREATININE, SERUM 1.35 mg/dL (0.72-1.25)
[2018-09-30 08:55] LABS: BILIRUBIN,DIRECT 1.2 mg/dL (0.0-0.5)
[2018-09-30] MEDS: FAMOTIDINE 20 MG TAB PO SCH (09:00)
[2018-09-30] MEDS: ZINC OXIDE / BALSAM PERU 30 GM TUBE TOP SCH (09:00)
[2018-09-30] MEDS: FOLIC ACID 1 MG TAB PO SCH (09:00)
[2018-09-30] MEDS: GUAIFENESIN 600MG/DEXTROMETHORPHAN 30MG TABSR PO SCH (09:00)
[2018-09-30] MEDS: SPIRONOLACTONE 25 MG TAB PO SCH (09:00)
[2018-09-30] MEDS: OYST-CAL-D 500MG TABLET PO SCH (09:00)
[2018-09-30] MEDS: QUETIAPINE FUMARATE 25 MG TAB PO SCH (09:00)
[2018-09-30] MEDS: RIFAXIMIN 550 MG TABLET PO SCH (09:00)
[2018-09-30] MEDS: MEGESTROL ACETATE 40 MG TAB PO SCH (09:00)
[2018-09-30] MEDS: ASCORBIC ACID 500 MG TAB PO SCH (09:00)
[2018-09-30 09:01] LABS: B-TYPE NATRIURETIC PEPTIDE2 619.7 pg/mL (0-100)
[2018-09-30 09:17] VITALS: BP 145/65
--- NOTE | 2018-09-30 11:09 | Progress Note ---
DATE: SUBJECTIVE: The patient was seen and examined. The patient appears comfortable. No worsening event noted. Clinical condition is same. He is more of awake, but still confused. OBJECTIVE: GENERAL: The patient is alert, awake, confused. HEENT: Normocephalic, atraumatic. Sclerae pale. Conjunctivae clear. NECK: Supple. CHEST: Decreased breath sounds in the bases. ABDOMEN: Soft. EXTREMITIES: No edema. LABORATORY AND IMAGING DATA: Labs and imaging reviewed. ASSESSMENT AND PLAN: The patient with history of liver cirrhosis with hepatic encephalopathy, community-acquired pneumonia, pancytopenia, and anemia. The patient's current CBC is pending. Clinical condition is same and stable. Labs and x-rays persistently showed perihilar-peribronchial haziness. No evidence of any active bleeding. RECOMMENDATION: Continue current care. Monitor the patient very closely. We will follow the patient closely. Try to avoid thrombocytopenia medication. MD CATERINA Villalba/MEL /[id number]
[2018-09-30] MEDS: CEFTRIAXONE SOD 1 GM/NS 50 ML 50 ML IV SCH (11:30)
[2018-09-30] MEDS: AZITHROMYCIN 500MG/NS 250 ML 250 ML IV SCH (12:00)
--- NOTE | 2018-09-30 12:23 | Diagnostic Imaging Report ---
Examination: Limited abdominal ultrasound. Clinical indication: Concern for ascites. Comparison examination: Abdominal ultrasound 09/26/2018 Technique: Transverse and longitudinal sonographic images of the 4 abdominal quadrants were obtained. Findings: See impression. Impression: No sonographic evidence of ascites. Signed by: Dr. Dayo Warren M.D. on 09/30/2018 12:19 PM
--- NOTE | 2018-09-30 12:46 | NUR ---
PAGED AND TALKED DR HORTON REGARDING DISCHARGE HE IS OK TO DISCHARGE
--- NOTE | 2018-09-30 12:46 | NUR ---
PAGED DR JOSEFA NOVA GET THE DISCHARGE APPROVAL
--- NOTE | 2018-09-30 13:23 | NUR ---
PAGED AND NOTIFIED THE ULTRASOUND REPORT TO ISABEL MURPHY GOT THE DISCHARGE ORDER
--- NOTE | 2018-09-30 13:35 | Progress Note ---
DATE: SUBJECTIVE: The patient is still confused, but is more arousable. He has no fever. He has no chest pain. OBJECTIVE: VITAL SIGNS: Blood pressure is 145/65 and the pulse is 77. The saturation is 96% on 2 L. HEENT: No facial swelling or erythema. The oropharynx is normal. LYMPHATIC: No submandibular, cervical, or supraclavicular adenopathy. CARDIAC: Regular rate and rhythm with normal S1 and S2. LUNGS: Auscultation of lungs reveals decreased breath sounds at the bases. There is no wheezing. ABDOMEN: Soft and nontender. There is no rebound or guarding. EXTREMITIES: No leg edema or calf tenderness. There is no cyanosis or clubbing. IMPRESSION: 1. Cirrhosis with hepatic encephalopathy. 2. Resolving community-acquired pneumonia. 3. Renal insufficiency. 4. Anemia, unspecified. 5. Thrombocytopenia. PLAN: 1. Continue current therapy for hepatic encephalopathy. 2. Complete antibiotics. 3. Continue to monitor creatinine and sodium. Tin Carlson MD [facility]/MODL /[id number]
--- NOTE | 2018-09-30 14:23 | NUR ---
Nutrition Screen Note RD Recommendation for Physician: Continue diet as ordered Plan of Care: RD following, monitoring for adequacy and tolerance Nutrition reason for involvement: Follow up Primary Diagnose(s):Altered mental status, anemia Ht:68 in Wt:269.56lbs 09/30 288.02lbs BMI:kg/m2 IBW:154lbs RD Assessment: (09/30): Follow up encounter with patient. Pt is eating well per [employer]. Pt is confused. No difficulty chewing or swallowing a pureed diet with nectar thick liquids. no nausea, vomiting or diarrhea. Wt gain noted of 18.46 pounds over past week. Will continue to monitor. (09/24): Initial encounter with patient. Pt was not able to provide a nutrition Hx during the time of visit. Sitter in room. Pt with a hx of bleeding esophageal varices,dyphagia, and missing teeth. 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 Current Diet: NPO Malnutrition Evaluation (09/24) The patient does not meet criteria for a specified degree of malnutrition at this time. Will re-evaluate at follow-up as appropriate. Diet Education Needs Assessment: Diet education not indicated. Diet Adequacy: meeting energy, protein and fluid needs Tolerance: pureed with nectar thick liquids Nutrition Care Level:Kristian Dove RD, LD, CNSC
[2018-09-30 14:33] VITALS: BP 154/78
--- NOTE | 2018-09-30 14:50 | NUR ---
REPORT GIVEN TO MIMI HUSTON
--- NOTE | 2018-09-30 15:50 | NUR ---
PT DIS[facility]
--- NOTE | 2018-09-30 15:51 | Progress Note ---
DATE: 09/30/2018 Nephrology Progress Note SUBJECTIVE: The patient is doing well today with no issues. He is at baseline. He is being transferred to [facility] today. OBJECTIVE: VITAL SIGNS: Temperature is 98.1, pulse 71, respiratory rate 20, blood pressure 145/65, and pulse ox 98% on 2 L nasal cannula. GENERAL: Not in acute distress. He is very confused on examination. HEENT: Head is normocephalic and atraumatic. Eyes; pupils are equal, round, and reactive to light bilaterally. Extraocular movements are intact bilaterally. Throat, no evidence of erythema or exudates in the posterior pharynx. Has poor dentition. NECK: Supple. Good range of motion. PULMONARY: Clear to auscultation bilaterally. No wheezing, no rales, no rhonchi, no crackles appreciated. CARDIOVASCULAR: Positive S1, S2. No murmurs, rubs, or gallops appreciated. ABDOMEN: Soft, nondistended, and nontender to palpation. Bowel sounds present. MUSCULOSKELETAL: Strength is 5/5 throughout. No evidence of any muscle deficits on examination. No weakness appreciated. NEUROLOGICAL: Cranial nerves II through XII grossly intact. No evidence of any neurological deficits on exam. SKIN: Intact. Warm to touch. Good cap refill. PSYCHIATRIC: At baseline. EXTREMITIES: No edema. Good range of motion throughout. LAB FINDINGS: White count 5.3, hemoglobin 8.6, hematocrit 27.5, and platelets of 69. Sodium is 148, potassium is 4, chloride is 122, bicarb 22, anion gap of 8, BUN is 21, creatinine is 1.3. Total bilirubin is 2, direct bilirubin is 0.2, and albumin is 1.3. IMPRESSION: 1. Hypovolemic hypotonic hypernatremia secondary to dehydration, now elevated sodium levels. 2. Acute kidney injury on chronic kidney disease stage 3, improved. 3. Electrolyte abnormalities. 4. Mild encephalopathy secondary to alcoholic liver cirrhosis. 5. Thrombocytopenia. PLAN: At this time, sodium level is 148. He was on D5W to complete 1 total liter. Seems like he is still volume depleted, which I will go ahead and encourage more oral free water intake. I have specially instructed nursing staff to pass along to the [facility] while he is there to drink free water to help lower down the sodium, otherwise rest of electrolytes are stable. MD MIGUEL ANGEL Bray/MEL /[id number]
--- NOTE | 2018-10-01 02:48 | Discharge Summary ---
ADMISSION DIAGNOSES: Urinary tract infection, present on admission; hyponatremia; acute kidney injury on chronic kidney disease 3, liver failure with hyperammonemia, thrombocytopenia, and anemia. DISCHARGE DIAGNOSES: Urinary tract infection, present on admission; hyponatremia; acute kidney injury on chronic kidney disease 3, liver failure with hyperammonemia, thrombocytopenia, anemia. Rule out UTI. Aspiration pneumonia, present on admission; cirrhosis with hepatic encephalopathy. Rule out gastrointestinal bleed. Full code. HISTORY: The patient has a history of cirrhosis, hypothyroidism, MDD. SURGICAL HISTORY: Unable to obtain. FAMILY HISTORY: Unable to obtain. HOSPITAL COURSE: A 62-year-old male from [facility], presents for AMS. He has had decreased responsiveness for about 2 days per long term staff. The patient is confused, so unable to obtain HPI and history. No family is present at the time. On admission, patient was started on Zosyn for presumed UTI. The culture came back negative. Chest x-ray showed pulmonary vascular congestion. Haziness of the right lung may represent atelectasis or developing infiltrate. Due to confusion, CT of the brain was done, which was negative. The patient's ammonia was elevated on admission. He was started on lactulose. GI was consulted, who also ordered rifaximin. The patient's sodium was elevated. He was started on IV fluids. Renal was consulted. The patient had an ultrasound of the abdomen to rule out cirrhosis, initially was unable to be done due to agitation. Repeat chest x-ray showed mild cardiomegaly with pulmonary venous congestion. He then had an MBS, which showed mild pharyngeal dysphagia with silent aspiration of thin liquids. The patient was placed on pureed diet and thickened liquids. Due to anemia, the patient received 2 units of blood. Stool for blood was negative. Ammonia level normalized with the lactulose and rifaximin. The patient's AMS improved. He became oriented x2 prior to discharge. He will discharge back to [facility]. Vital signs stable, patient afebrile. He will continue antibiotics for 7 more days for aspiration pneumonia. The patient's mom understands discharge instructions and agrees to plan. All consults agree with discharge. The patient will follow up with primary care in 1-2 weeks. Dictated by Lizbeth Sandoval NP MD CLEOPATRA Santamaria/JAMIEL /[id number]
== END 2018-09-30 15:56 | DRG 871 ==
LOC: ER 17:32 → ERHOLD 22:44 → MED/SURG2 09-24 00:22
PROVIDERS: ADMIT Internal Medicine; ATTEND Internal Medicine
PROC: 30233N1 Transfusion of Nonautologous Red Blood Cells into Peripheral Vein, Percutaneous Approach (ICD-10-PCS; 2018-09-25)
PROC: 30233R1 Transfusion of Nonautologous Platelets into Peripheral Vein, Percutaneous Approach (ICD-10-PCS; 2018-09-25)
PROC: 30233K1 Transfusion of Nonautologous Frozen Plasma into Peripheral Vein, Percutaneous Approach (ICD-10-PCS; principal; 2018-09-26)
DX: A41.9 Sepsis, unspecified organism (principal); J18.9 Pneumonia, unspecified organism; N39.0 Urinary tract infection, site not specified; E87.0 Hyperosmolality and hypernatremia; N17.9 Acute kidney failure, unspecified; N18.3 Chronic kidney disease, stage 3 (moderate); K72.90 Hepatic failure, unspecified without coma; K71.10 Toxic liver disease with hepatic necrosis, without coma; N28.9 Disorder of kidney and ureter, unspecified; D50.0 Iron deficiency anemia secondary to blood loss (chronic); D69.6 Thrombocytopenia, unspecified; I12.9 Hypertensive chronic kidney disease with stage 1 through stage 4 chronic kidney disease, or unspecified chronic kidney disease; K74.60 Unspecified cirrhosis of liver
CPT/HCPCS: 36415; 36600; 70450; 71045; 74230; 76705; 80048; 80053; 80076; 81001; 82105; 82140; 82270; 82550; 82553; 82607; 82728; 82746; 82805; 83036; 83540; 83690; 83735; 83880; 84439; 84443; 84466; 84484; 85025; 85610; 85730; 86850; 86900; 86920; 86945; 87040; 87086; 87449; 87521; 94640; 97139; 99284; J0360; J0456; J0696; J1940; J2060; J2543; J7050; J7060; J7070; P9016; P9017; P9034